=== PATIENT | male | born 1955 | race Caucasian/White ===

== ENCOUNTER 2016-10-23 13:24 | Observation (INO) | payer OTHER, BC, MEDICAID ==
[2016-10-23 14:02] LABS: ABSOLUTE EOSINOPHILS # (AUTO) 0.1 10^3/uL (0.0-0.6); ABSOLUTE LYMPHOCYTES (AUTO) 0.7 10^3/uL (0.5-4.7); ABSOLUTE MONOCYTES (AUTO) 0.6 10^3/uL (0.1-1.4); BASOPHILS % (AUTO) 0.7 % (0-2); EOSINOPHILS % (AUTO) 1.3 % (0-6); HEMATOCRIT 41.8 % (37.9-51.0); HEMOGLOBIN 14.5 g/dL (13.5-17.0); HGB HCT DIFFERENCE 1.7; LYMPHOCYTES % (AUTO) 10.6 % (13-45); MEAN CORPUSCULAR HEMOGLOBIN 32.3 pg (27.0-33.4); MEAN CORPUSCULAR HGB CONC 34.7 g/dL (32.0-36.0); MEAN CORPUSCULAR VOLUME 93 fl (80-97); MONOCYTES % (AUTO) 9.5 % (3-13); RED BLOOD COUNT 4.49 10^6/uL (4.35-5.55); RED CELL DISTRIBUTION WIDTH 13.7 % (11.5-14.0); SEGMENTED NEUTROPHILS % (AUTO) 77.9 % (42-78); WHITE BLOOD COUNT 6.5 10^3/uL (4.0-10.5)
[2016-10-23 14:13] LABS: ALANINE AMINOTRANSFERASE 23 U/L (21-72); ALBUMIN 4.2 g/dL (3.5-5.0); ALKALINE PHOSPHATASE 64 U/L (38-126); ANION GAP 11 (5-19); ASPARTATE AMINO TRANSFERASE 18 U/L (17-59); BILIRUBIN,TOTAL 0.8 mg/dL (0.2-1.3); BLOOD UREA NITROGEN 13 mg/dL (7-20); CARBON DIOXIDE 26 mmol/L (22-30); CHLORIDE 94 mmol/L (98-107); CREATININE RESULT 0.92 mg/dL (0.52-1.25); GLUCOSE 87 mg/dL (75-110); POTASSIUM 4.6 mmol/L (3.6-5.0); SODIUM 130.6 mmol/L (137-145); TOTAL PROTEIN 6.7 g/dL (6.3-8.2)
--- NOTE | 2016-10-23 15:13 | ER Document Report ---
ED General - General Chief Complaint: General Weakness Stated Complaint: WEAKNESS Mode of Arrival: Ambulatory Information source: Patient Notes: 61-year-old male history of 4 previous CVAs presents with complaints of left- sided weakness. Patient notes symptoms started around 3:00 this morning associated with chest pain. Patient notes chest pain has since resolved the numbness is still there. Patient denies any fevers or chills nausea vomiting or diarrhea TRAVEL OUTSIDE OF THE [place] IN LAST 30 DAYS: No - HPI Onset: This morning Onset/Duration: Sudden Quality of pain: No pain Severity: Mild Pain Level: Denies Associated symptoms: Chest pain, Other Exacerbated by: Denies Relieved by: Denies Similar symptoms previously: Yes Recently seen / treated by doctor: Yes - Related Data Allergies/Adverse Reactions: Beqomnk-Yay-Ugc Reductase Inhibitor Allergy (Severe, Verified 09/27/15 17:28) Muscle Aches Past Medical History - Social History Smoking Status: Never Smoker Cigarette use (# per day): No Chew tobacco use (# tins/day): No Smoking Education Provided: No Family History: CAD - Father age 56 [place], Other - Alcohol abuse - Past Medical History Cardiac Medical History: Reports: Hx Hypertension - hx of in past-no current meds Denies: Hx Coronary Artery Disease, Hx Heart Attack Pulmonary Medical History: Denies: Hx Asthma, Hx Bronchitis, Hx COPD, Hx Pneumonia Neurological Medical History: Reports: Hx Cerebrovascular Accident. 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 Denies recent illness. EENT: Denies eye, ear, throat, or mouth pain or symptoms. Denies nasal or sinus congestion or discharge. Denies throat, tongue, or mouth swelling or difficulty swallowing. CARDIOVASCULAR: Admits to chest pain RESPIRATORY: Denies cough, cold, or chest congestion. Denies shortness of breath, difficulty breathing, or wheezing. GASTROINTESTINAL: Denies abdominal pain or distention. Denies nausea, vomiting , or diarrhea. Denies blood in vomitus, stools, or per rectum. Denies black, tarry stools. Denies constipation. GENITOURINARY: Denies difficulty urinating, painful urination, burning, frequency, blood in urine, or discharge. MUSCULOSKELETAL: Denies back or neck pain or stiffness. Denies joint pain or swelling. SKIN: Denies rash, lesions or sores. HEMATOLOGIC : Denies easy bruising or bleeding. LYMPHATIC: Denies swollen, enlarged glands. NEUROLOGICAL: Admits to left-sided weakness PSYCHIATRIC: Denies anxiety or stress. Denies depression, suicidal ideation, or homicidal ideation. ALL OTHER SYSTEMS REVIEWED AND NEGATIVE. Dictation was performed using [employer] voice recognition software PHYSICAL EXAMINATION: GENERAL: Well-appearing, well-nourished and in no acute distress. HEAD: Atraumatic, normocephalic. EYES: Pupils equal round and reactive to light, extraocular movements intact, sclera anicteric, conjunctiva are normal. ENT: Nares patent, oropharynx clear without exudates. Moist mucous membranes. NECK: Normal range of motion, supple without lymphadenopathy LUNGS: Breath sounds clear to auscultation bilaterally and equal. No wheezes rales or rhonchi. HEART: Regular rate and rhythm without murmurs ABDOMEN: Soft, nontender, nondistended abdomen. No guarding, no rebound. No masses appreciated. Musculoskeletal: Normal range of motion, no pitting or edema. No cyanosis. NEUROLOGICAL: Mild weakness noted left upper and lower extremityor speech no other neurological deficits NIH score two PSYCH: Normal mood, normal affect. SKIN: Warm, Dry, normal turgor, no rashes or lesions noted. Physical Exam - Vital signs Vitals: Resp Pulse Ox 20 99 10/23/16 13:31 10/23/16 13:31 Course - Re-evaluation Re-evalutation: 10/23/16 15:13 left sided weakness noted since 3 am, pt is otherwise in no distress 10/23/16 15:15 Patient does not meet criteria for TIA CVA given that symptoms started around 3 AM 10/23/16 17:50 Patient will be admitted to hospital service for further evaluation patient is awake taken 1 baby aspirin prior to arrival and given 3 more in the emergency department - Vital Signs Vital signs: Temp Pulse Resp BP Pulse Ox 98.2 F 13 132/84 H 99 10/23/16 15:12 10/23/16 15:00 10/23/16 14:00 10/23/16 15:00 - Laboratory Result Diagrams: 10/23/16 13:40 10/23/16 13:40 Laboratory results interpreted by me: 10/23/16 10/23/16 13:40 13:40 Lymphocytes % 10.6 L Sodium 130.6 L Chloride 94 L - Diagnostic Test Radiology reviewed: Image reviewed, Reports reviewed - EKG Interpretation by Me EKG shows normal: Sinus rhythm, [place], Intervals, QRS Complexes Discharge - Discharge Clinical Impression: Left-sided weakness TIA (transient ischemic attack) Qualifiers: Transient cerebral ischemia type: unspecified Qualified Code(s): G45.9 - Transient cerebral ischemic attack, unspecified Condition: Stable Disposition: ADMITTED OBSERVATION Admitting Provider: Hospitalist Unit Admitted: Telemetry
[2016-10-23] MEDS ORDERED: ASPIRIN 81 MG TABLET, CHEWABLE PO ONE (15:14)
[2016-10-23 15:33] LABS: PROTHROMBIN TIME 13.5 SEC (11.4-15.4)
[2016-10-23 15:40] LABS: CREATINE KINASE MB 0.57 ng/mL (<4.55); TROPONIN I < 0.012 ng/mL
[2016-10-23] MEDS ORDERED: ACETAMINOPHEN 325 MG TABLET PO PRN (18:40)
[2016-10-23] MEDS ORDERED: ONDANSETRON HCL INJ/PF 4 MG/2 ML SDV IV PRN (18:40)
[2016-10-23] MEDS ORDERED: DOCUSATE SODIUM 100 MG CAPSULE PO PRN (18:40)
--- NOTE | 2016-10-23 18:56 | PDOC H&P ---
History of Present Illness Admission Date/PCP: 10/23/16 16:20 DENNYS CLARKE PA-C Patient complains of: Numbness on the left side of the body History of Present Illness: CHRISTEL VELAZCO is a 61 year old male, with prior history of stroke with minimal residual weakness on the left, ambulatory without the use of a walker, hypertension, hyperlipidemia, cervical spine fracture apparently developed numbness on the left side of the face upper extremity and lower extremity. Symptoms persisted until noontime from upon waking up. Patient had multiple TIAs in the past therefore he called the ambulance where he was able to walk towards it. He he was brought to the emergency room for evaluation and initial CT scan was negative for any acute abnormality. Associated symptoms include initial choking sensation did eventually resolve. There is some mild weakness associated on the left as well. However duration no slurring of speech. Patient reports that he doesn't feel well. Yesterday he was doing fine in history as well state about. The patient was referred for admission. Past Medical History Cardiac Medical History: Reports: Hypertension - hx of in past-no current meds Denies: Coronary Artery Disease, Myocardial Infarction Pulmonary Medical History: Denies: Asthma, Bronchitis, Chronic Obstructive Pulmonary Disease (COPD), Pneumonia Neurological Medical History: Denies: Seizures GI Medical History: Reports: Gastroesophageal Reflux Disease Musculoskeltal Medical History: Reports: Arthritis - neck Psychiatric Medical History: Reports: Depression, Substance Abuse - Cocaine and alcohol Traumatic Medical History: Reports: Other - Fracture of the neck Hematology: Denies: Anemia Past Surgical History Past Surgical History: Reports: Tonsillectomy, Other - Vasectomy Social History Information Source: Patient Smoking Status: Never Smoker Frequency of Alcohol Use: None Hx Recreational Drug Use: Yes Drugs: Cocaine Hx Prescription Drug Abuse: No Family History Family History: CAD - Father age 56 [place], Other - Alcohol abuse Parental Family History Reviewed: Yes Children Family History Reviewed: Yes Sibling(s) Family History Reviewed.: Yes Medication/Allergy Home Medications: Aspirin [Ecotrin 325 mg EC Tablet] 325 mg PO DAILY 10/23/16 Clopidogrel Bisulfate [Plavix 75 mg Tablet] 75 mg PO DAILY 10/23/16 [place]-3/Dha/Epa/Fish Oil [Fish Oil 1,000 mg Softgel] 2,000 mg PO DAILY 10/23/16 Allergies/Adverse Reactions: Gdrkvgs-Tsq-Zmj Reductase Inhibitor Allergy (Severe, Verified 09/27/15 17:28) Muscle Aches Review of Systems Constitutional: ABSENT: chills, fever(s), headache(s), weight gain, weight loss Eyes: ABSENT: visual disturbances Ears: ABSENT: hearing changes Nose, Mouth, and Throat: ABSENT: mouth pain, sore throat Cardiovascular: ABSENT: chest pain, dyspnea on exertion, edema, orthropnea, palpitations Respiratory: ABSENT: cough, hemoptysis Gastrointestinal: ABSENT: abdominal pain, constipation, diarrhea, hematemesis, hematochezia, nausea, vomiting Genitourinary: ABSENT: dysuria, hematuria Musculoskeletal: ABSENT: joint swelling Integumentary: ABSENT: pruritus, rash, wounds Neurological: PRESENT: abnormal gait - Slight chronic weakness on the left but ambulatory without a walker., focal weakness - Mild weakness on the left, numbness - Left side of the body. ABSENT: abnormal speech, confusion, dizziness , syncope Psychiatric: ABSENT: anxiety, depression, homidical ideation, suicidal ideation Endocrine: ABSENT: cold intolerance, heat intolerance, polydipsia, polyuria Hematologic/Lymphatic: ABSENT: easy bleeding, easy bruising Physical Exam Vital Signs: Temp Pulse Resp BP Pulse Ox 98.2 F 13 132/84 H 99 10/23/16 15:12 10/23/16 15:00 10/23/16 14:00 10/23/16 15:00 General appearance: PRESENT: no acute distress, cooperative, well-developed, well-nourished Head exam: PRESENT: atraumatic, normocephalic Eye exam: PRESENT: conjunctiva pink, EOMI, PERRLA. ABSENT: scleral icterus Ear exam: PRESENT: normal external ear exam. ABSENT: drainage Mouth exam: PRESENT: moist, neck supple, tongue midline Throat exam: ABSENT: post pharyngeal erythema, tonsillar erythema Neck exam: ABSENT: carotid bruit, JVD, lymphadenopathy, thyromegaly Respiratory exam: PRESENT: clear to auscultation felicia. ABSENT: rales, rhonchi, wheezes Cardiovascular exam: PRESENT: RRR. ABSENT: diastolic murmur, rubs, systolic murmur Pulses: PRESENT: normal dorsalis pedis pul Vascular exam: PRESENT: normal capillary refill GI/Abdominal exam: PRESENT: normal bowel sounds, soft. ABSENT: distended, guarding, mass, organolmegaly, rebound, tenderness Rectal exam: PRESENT: deferred Extremities exam: PRESENT: full ROM. ABSENT: calf tenderness, clubbing, pedal edema Neurological exam: PRESENT: alert, awake, oriented to person, oriented to place , oriented to time, oriented to situation, motor sensory deficit - Subtle weakness on the left compared to the right, other - Mild shallowness of the left nasolabial fold. Speech is fluent. Plantars withdraws bilateral Psychiatric exam: PRESENT: appropriate affect, normal mood. ABSENT: homicidal ideation, suicidal ideation Skin exam: PRESENT: dry, intact, warm. ABSENT: cyanosis, rash Results Impressions: Head CT 10/23/16 13:33 IMPRESSION: CHRONIC CHANGES OF ATROPHY AND MICROVASCULAR ISCHEMIA. NO ACUTE PROCESS. Assessment & Plan - Diagnosis (1) Left-sided weakness Is this a current diagnosis for this admission?: Yes (2) TIA (transient ischemic attack) Qualifiers: Transient cerebral ischemia type: unspecified Qualified Code(s): G45.9 - Transient cerebral ischemic attack, unspecified Is this a current diagnosis for this admission?: Yes (3) Hyperlipidemia Qualifiers: Hyperlipidemia type: other hyperlipidemia Qualified Code(s): E78.4 - Other hyperlipidemia Is this a current diagnosis for this admission?: Yes (4) Hypertension Qualifiers: Hypertension type: essential hypertension Qualified Code(s): I10 - Essential (primary) hypertension Is this a current diagnosis for this admission?: Yes (5) GERD (gastroesophageal reflux disease) Qualifiers: Esophagitis presence: without esophagitis Qualified Code(s): K21.9 - Gastro-esophageal reflux disease without esophagitis Is this a current diagnosis for this admission?: Yes (6) History of cocaine abuse Is this a current diagnosis for this admission?: Yes (7) History of alcohol abuse Is this a current diagnosis for this admission?: Yes (8) History of cervical fracture Is this a current diagnosis for this admission?: Yes (9) History of stroke Is this a current diagnosis for this admission?: Yes - Time Time Spent: 30 to 50 Minutes - Plan Summary Plan Summary: The patient will be placed on observation. Patient had a recent carotid Doppler performed in May 2016 showing no hemodynamically significant stenosis. I will continue the patient's antiplatelet therapy we will have physical therapy get involved. We will obtain MRI of the brain and a 2-D echocardiogram. If patient's MRI is negative likely the patient can be discharged home. We will check fasting lipid panel in the morning. I will hold any antihypertensive medication at this time. DVT prophylaxis with Lovenox will be placed. Supplemental oxygen will be given. Further testing depends on the initial evaluation as outlined above.
[2016-10-23] MEDS ORDERED: ENOXAPARIN SODIUM INJ 40 MG/0.4 ML DISP.SYRIN SUBCUT ONE (19:30)
[2016-10-24] MEDS ORDERED: LANSOPRAZOLE 30 MG TAB.RAP.DR PO SCH (06:00)
[2016-10-24 06:59] LABS: CHOLESTEROL 259.82 mg/dL (0-200); Direct HDL 64 mg/dL (>40); TRIGLYCERIDES 70 mg/dL (<150)
[2016-10-24 07:10] LABS: DIRECT LDL 187 mg/dL (<100)
[2016-10-24] MEDS ORDERED: ENOXAPARIN SODIUM INJ 40 MG/0.4 ML DISP.SYRIN SUBCUT SCH (08:00)
[2016-10-24] MEDS ORDERED: OMEGA-3 ACID ETHYL ESTERS 1 GM CAPSULE PO SCH (10:00)
[2016-10-24] MEDS ORDERED: (PENDING PHARMACY ID) (Omega-3/Dha/Epa/Fish Oil [Fish Oil 1,000 Mg Softgel] 2,000 MG) PO SCH (10:00)
[2016-10-24] MEDS ORDERED: ASPIRIN 325 MG TABLET, ENT COATED PO SCH (10:00)
[2016-10-24] MEDS ORDERED: CLOPIDOGREL BISULFATE 75 MG TABLET PO SCH (10:00)
[2016-10-24] MEDS ORDERED: INFLUENZA ADLT QUAD (36MOS+) 2016-17 VAC 0.5 ML SYR IM PRN (14:34)
--- NOTE | 2016-10-24 17:48 | XCELERA REPORT ---
[address] [address] Transthoracic Echocardiogram Report Name: CHRISTEL VELAZCO Age: 61 yrs Gender: Male : 1955 Patient Status: Inpatient Patient Location: [id number]\A Study Date: 10/24/2016 03:53 PM Height: 65 in Weight: 152 lb BSA: 1.8 m2 Procedure: A complete two-dimensional transthoracic echocardiogram was performed (2D, M-mode, spectral and color flow Doppler). The study was technically adequate with some images being suboptimal in quality. Reason For Study: hypertensive heart disease, stroke Ordering Physician: JOSE KAT Performed By: Yeni Miller Interpretation Summary The left ventricular ejection fraction is normal. There is borderline concentric left ventricular hypertrophy. Doppler measurements suggest impaired left ventricular relaxation, which is associated with grade I/IV or mild diastolic dysfunction The left ventricle is grossly normal size. Wall motion cannot be accurately commented on, but no definite regional wall motion abnormalities noted. The right ventricular systolic function is normal. The left atrial size is normal. The right atrium is normal in size There is a trace amount of mitral regurgitation There is no mitral valve stenosis. There is no aortic valve stenosis No aortic regurgitation is present. There is a trace or physiologic amount of tricuspid regurgitation Tricuspid regurgitation jet envelope not well defined to measure RV systolic pressure accurately. The aortic root is not well visualized. The inferior vena cava appeared normal and decreased < 50% with respiration (RAP 10-15 mmHg) There is no pericardial effusion. Consider IVETTE if clinically indicated. May consider mobile cardiac telemetry monitoring (MCT) for ruling out transient AFIB. MMode/2D Measurements \T\ Calculations RVDd: 2.9 cm LVIDd: 4.7 cm FS: 33.0 % Ao root diam: 3.5 cm IVSd: 0.96 cm LVIDs: 3.1 cm EDV(Teich): 101.4 ml LVPWd: 0.99 cmESV(Teich): 39.0 ml Ao root area: 9.7 cm2 EF(Teich): 61.6 % LA dimension: 2.3 cm LVOT diam: 2.2 cm LVOT area: 3.7 cm2 Doppler Measurements \T\ Calculations MV E max flaca: MV P1/2t max flaca: Ao V2 max: LV V1 max P.3 cm/sec 71.3 cm/sec 123.8 cm/sec 3.6 mmHg MV A max flaca: MV P1/2t: 53.3 msec Ao max PG: LV V1 max: 82.1 cm/sec MVA(P1/2t): 4.1 cm2 6.1 mmHg 95.2 cm/sec MV E/A: 0.87 MV dec slope: NIELS(V,D): 2.9 cm2 392.1 cm/sec2 PA V2 max: PI end-d flaca: TR max flaca: 52.8 cm/sec 71.8 cm/sec 189.1 cm/sec PA max PG: TR max P.1 mmHg 14.3 mmHg Left Ventricle The left ventricle is grossly normal size. There is borderline concentric left ventricular hypertrophy. The left ventricular ejection fraction is normal. Doppler measurements suggest impaired left ventricular relaxation, which is associated with grade I/IV or mild diastolic dysfunction. Wall motion cannot be accurately commented on, but no definite regional wall motion abnormalities noted. Right Ventricle The right ventricle is grossly normal size. There is normal right ventricular wall thickness. The right ventricular systolic function is normal. Atria The right atrium is normal in size. The left atrial size is normal. Interarterial septum not well visualized and not well dopplered. Cannot comment on ASD/PFO presence. Mitral Valve The mitral valve leaflets are sclerotic, but show no functional abnormalities. There is no mitral valve stenosis. There is a trace amount of mitral regurgitation. Aortic Valve The aortic valve is grossly normal. There is no aortic valve stenosis. No aortic regurgitation is present. Tricuspid Valve The tricuspid valve is not well visualized, but is grossly normal. There is no tricuspid stenosis. There is a trace or physiologic amount of tricuspid regurgitation. Tricuspid regurgitation jet envelope not well defined to measure RV systolic pressure accurately. Pulmonic Valve The pulmonic valve is not well visualized. Great Vessels The aortic root is not well visualized. The inferior vena cava appeared normal and decreased < 50% with respiration (RAP 10-15 mmHg). Effusions There is no pericardial effusion. Incidental Findings No definite cardiac source of CVA/TIA noted on this particular trans- thoracic study. Consider IVETTE if clinically indicated. May consider mobile cardiac telemetry monitoring (MCT) for ruling out transient AFIB. : JOSE KAT > Bala Hudson
--- NOTE | 2016-10-24 18:17 | PDOC DISCHARGE SUMMARY ---
General - Admit/Disc Date/PCP Admission Date/Primary Care Provider: 10/23/16 18:40 DENNYS CLARKE PA-C Discharge Date: 10/24/16 - Discharge Diagnosis (1) TIA (transient ischemic attack) Is this a current diagnosis for this admission?: YesSummary: Patient presented with numbness in the left face and left arm and leg. It's not clear whether this was truly a TIA or possibly be cervical spine disease as the cause. MRI showed no acute event. (2) Hyperlipidemia Is this a current diagnosis for this admission?: Yes (3) Hypertension Is this a current diagnosis for this admission?: Yes (4) GERD (gastroesophageal reflux disease) Is this a current diagnosis for this admission?: Yes - Additional Information Resuscitation Status: Full Code Discharge Diet: Cardiac Discharge Activity: Activity As Tolerated Home Medications: Aspirin [Ecotrin 325 mg EC Tablet] 325 mg PO DAILY 10/23/16 Clopidogrel Bisulfate [Plavix 75 mg Tablet] 75 mg PO DAILY 10/23/16 [place]-3/Dha/Epa/Fish Oil [Fish Oil 1,000 mg Softgel] 2,000 mg PO DAILY 10/23/16 History of Present Illness History of Present Illness: CHRISTEL VELAZCO is a 61 year old male with a revisit history TIA who presented with numbness in the left arm, left leg and left face. The patient presented to the emergency room and head CT was negative. Patient was admitted because of presumed TIA. The patient was hospitalized in May for similar symptoms and had carotid Dopplers that showed no evidence for significant stenosis. Hospital Course Hospital Course: 61-year-old gentleman who presented with left face and left arm and leg numbness. The patient had a head CT that was unremarkable and was admitted for workup of TIA. The patient's brain MRI showed no evidence for an acute or subacute event. The patient had a carotid Dopplers done in May and they were not repeated. Patient did have an echocardiogram done the results of which are pending at this time but he's not had any cardiac arrhythmias which makes the possibility of mural thrombus less likely. Patient presented already on aspirin and Plavix have instructed the patient that this is maximal treatment for TIAs. The possibility this represents cervical spine disease as the cause is considered and I discussed this with the patient that he might consider discussing going to see a neurologist see if that may be the cause of these intermittent episodes of left face and arm numbness. Physical Exam Vital Signs: Temp Pulse Resp BP Pulse Ox 98.4 F 88 16 130/65 H 97 10/24/16 14:04 10/24/16 16:00 10/24/16 16:00 10/24/16 16:00 10/24/16 16:00 Intake & Output 10/23/16 10/24/16 10/25/16 06:59 06:59 06:59 Intake Total 3 Output Total 1000 Balance -997 Weight 64.1 kg General appearance: PRESENT: no acute distress Eye exam: PRESENT: conjunctiva pink, scleral icterus Mouth exam: PRESENT: moist, tongue midline Neck exam: ABSENT: JVD Respiratory exam: PRESENT: clear to auscultation felicia. ABSENT: rales, rhonchi, wheezes Cardiovascular exam: PRESENT: RRR. ABSENT: diastolic murmur, rubs, systolic murmur GI/Abdominal exam: PRESENT: normal bowel sounds, soft. ABSENT: distended, guarding, mass, organolmegaly, rebound, tenderness Extremities exam: PRESENT: full ROM. ABSENT: calf tenderness, clubbing, pedal edema Neurological exam: PRESENT: alert, awake, oriented to person, oriented to place , oriented to time, oriented to situation, CN II-XII grossly intact. ABSENT: motor sensory deficit Psychiatric exam: PRESENT: appropriate affect Results Laboratory Results: 10/24/16 06:36 Triglycerides 70 Cholesterol 259.82 H LDL Cholesterol Direct 187 H VLDL Cholesterol 14.0 HDL Cholesterol 64 Impressions: Head MRI 10/23/16 00:00 IMPRESSION: Negative for acute or sub-acute infarction. Head CT 10/23/16 13:33 IMPRESSION: CHRONIC CHANGES OF ATROPHY AND MICROVASCULAR ISCHEMIA. NO ACUTE PROCESS. Qualifiers PATEINT BEING DISCHARGED WITH ANY OF THE FOLLOWING DIAGNOSIS?: Stroke Stroke Pt being discharged on Anti-thrombolytic therapy?: Yes Stroke Pt being discharged on Anti-coagulation therapy?: No Reason(s) for not prescribing Anti-coagulation therapy:: Contraindicated Stroke Pt being discharged on Statins?: Yes Plan Discharge Plan: Patient is discharged home in stable condition. Will follow primary care in 1 week Time Spent: Less than 30 Minutes
[2016-10-24 18:37] VITALS: BP 153/85
== END 2016-10-24 19:00 | disposition home or self-care (01) ==
LOC: ER 13:24 → UNDOADMIN 16:20 → EH 16:20 → INTOOBSV 18:40 → 3N 10-24 13:50
DX: G45.9 Transient cerebral ischemic attack, unspecified (principal); E78.5 Hyperlipidemia, unspecified; I10 Essential (primary) hypertension; K21.9 Gastro-esophageal reflux disease without esophagitis; Z87.898 Personal history of other specified conditions; Z86.73 Personal history of transient ischemic attack (TIA), and cerebral infarction without residual deficits
CPT/HCPCS: 99285; 36415 ×2; 82553; 82550; 85025; 85610; 80053; 84484; 80061; 93306; 70551; 70450; 97162; 92610; J1650 ×2; J3490 ×2

== ENCOUNTER 2016-12-18 09:33 | Emergency (ER) | payer BC, MEDICAID, OTHER ==
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
[2016-12-18 12:24] VITALS: BP 133/83
== END 2016-12-18 12:26 | disposition home or self-care (01) ==
LOC: ER 09:33
PROC: 2W3DX1Z Immobilization of Left Lower Arm using Splint (ICD-10-PCS; principal; 2016-12-18)
DX: S52.602A Unspecified fracture of lower end of left ulna, initial encounter for closed fracture (principal); V03.10XA Pedestrian on foot injured in collision with car, pick-up truck or van in traffic accident, initial encounter; Y92.410 Unspecified street and highway as the place of occurrence of the external cause; Z86.73 Personal history of transient ischemic attack (TIA), and cerebral infarction without residual deficits; K21.9 Gastro-esophageal reflux disease without esophagitis
CPT/HCPCS: 99283

== ENCOUNTER 2017-01-19 12:01 | Observation (INO) | payer BC, MEDICAID ==
--- NOTE | 2017-01-19 13:10 | RADIOLOGY REPORT (SQ) ---
EXAM DESCRIPTION: CT HEAD WITHOUT COMPLETED DATE/TIME: 01/19/2017 12:53 pm REASON FOR STUDY: STROKE PROTOCOL COMPARISON: None. TECHNIQUE: Axial images acquired through the brain without intravenous contrast. Images reviewed wi th bone, brain and subdural windows. Images stored on PACS. All CT scanners at this facility use dose modulation, iterative reconstruction, and/or weight based d osing when appropriate to reduce radiation dose to as low as reasonably achievable (ALARA). [facility]: Dose Right [facility]: CareDose [facility]: Dose Right [facility]: Teradose 4D [facility]: [employer] RADIATION DOSE: 64.61 mGy. LIMITATIONS: None. FINDINGS: VENTRICLES: Normal size and contour. CEREBRUM: No CT evidence of acute large territory ischemic change, acute intracranial hemorrhage, mas s effect, or midline shift. There are old infarcts in the left frontal deep periventricular white matter along the corpus callosu m axial image 22 and 23, and along the right frontal deep periventricular white matter/caudate lobe a xial image 20. These are unchanged from prior studies. Minimal chronic small vessel ischemic change in the bifrontal and biparietal regions, stable. CEREBELLUM: No masses. No hemorrhage. No alteration of density. No evidence for acute infarction. EXTRAAXIAL SPACES: No fluid collections. No masses. ORBITS AND GLOBE: No intra- or extraconal masses. Normal contour of globe without masses. CALVARIUM: No fracture. PARANASAL SINUSES: No fluid or mucosal thickening. SOFT TISSUES: No mass or hematoma. OTHER: No other significant finding. IMPRESSION: No acute findings COMMENT: Pertinent findings on the imaging study reported as a CRITICAL RESULT to MERT DOBBINS DO at12:50 on 01/19/2017. Category of Critical Result: CT stroke alert TECHNICAL DOCUMENTATION: JOB ID: [id number] Quality ID # [id number]: Final reports with documentation of one or more dose reduction techniques (e.g., Au tomated exposure control, adjustment of the mA and/or kV according to patient size, use of iterative reconstruction technique) 2010 [employer]- All Rights Reserved
--- NOTE | 2017-01-19 13:17 | RADIOLOGY REPORT (SQ) ---
EXAM DESCRIPTION: CHEST SINGLE VIEW COMPLETED DATE/TIME: 01/19/2017 12:56 pm REASON FOR STUDY: STROKE PROTOCOL COMPARISON: May 2016 EXAM PARAMETERS: NUMBER OF VIEWS: One view. TECHNIQUE: Single frontal radiographic view of the chest acquired. RADIATION DOSE: NA LIMITATIONS: None. FINDINGS: LUNGS AND PLEURA: No opacities, masses or pneumothorax. No pleural effusion. MEDIASTINUM AND HILAR STRUCTURES: No masses. Contour normal. HEART AND VASCULAR STRUCTURES: Heart normal in size. Normal vasculature. BONES: No acute findings. HARDWARE: None in the chest. OTHER: No other significant finding. IMPRESSION: NO ACUTE RADIOGRAPHIC FINDING IN THE CHEST. TECHNICAL DOCUMENTATION: JOB ID: [id number]
[2017-01-19 13:38] LABS: ABSOLUTE EOSINOPHILS # (AUTO) 0.1 10^3/uL (0.0-0.6); ABSOLUTE LYMPHOCYTES (AUTO) 0.9 10^3/uL (0.5-4.7); ABSOLUTE MONOCYTES (AUTO) 0.7 10^3/uL (0.1-1.4); ABSOLUTE NEUT (AUTO) 5.2 10^3/uL (1.7-8.2); BASOPHILS % (AUTO) 0.6 % (0-2); EOSINOPHILS % (AUTO) 1.4 % (0-6); HEMATOCRIT 46.8 % (37.9-51.0); HEMOGLOBIN 15.9 g/dL (13.5-17.0); HGB HCT DIFFERENCE 0.9; LYMPHOCYTES % (AUTO) 13.2 % (13-45); MEAN CORPUSCULAR HEMOGLOBIN 31.8 pg (27.0-33.4); MEAN CORPUSCULAR HGB CONC 33.9 g/dL (32.0-36.0); MEAN CORPUSCULAR VOLUME 94 fl (80-97); MONOCYTES % (AUTO) 9.6 % (3-13); PROTHROMBIN TIME 13.4 SEC (11.4-15.4); RED BLOOD COUNT 4.99 10^6/uL (4.35-5.55); RED CELL DISTRIBUTION WIDTH 13.6 % (11.5-14.0); SEGMENTED NEUTROPHILS % (AUTO) 75.2 % (42-78); WHITE BLOOD COUNT 6.9 10^3/uL (4.0-10.5)
[2017-01-19 13:56] LABS: ALANINE AMINOTRANSFERASE 30 U/L (21-72); ALBUMIN 4.7 g/dL (3.5-5.0); ALKALINE PHOSPHATASE 76 U/L (38-126); ANION GAP 14 (5-19); ASPARTATE AMINO TRANSFERASE 21 U/L (17-59); BILIRUBIN,DIRECT 0.3 mg/dL (0.0-0.4); BILIRUBIN,TOTAL 0.8 mg/dL (0.2-1.3); BLOOD UREA NITROGEN 13 mg/dL (7-20); CALCIUM 9.7 mg/dL (8.4-10.2); CARBON DIOXIDE 26 mmol/L (22-30); CHLORIDE 93 mmol/L (98-107); CREATINE KINASE 80 U/L (55-170); CREATININE RESULT 0.94 mg/dL (0.52-1.25); GLUCOSE 99 mg/dL (75-110); POTASSIUM 4.9 mmol/L (3.6-5.0); SODIUM 132.5 mmol/L (137-145); TOTAL PROTEIN 7.9 g/dL (6.3-8.2)
[2017-01-19 14:06] LABS: CREATINE KINASE MB 2.16 ng/mL (<4.55)
[2017-01-19 14:08] LABS: TROPONIN I < 0.012 ng/mL
--- NOTE | 2017-01-19 15:13 | ER Document Report ---
ED General - General Chief Complaint: Blurred Vision Stated Complaint: DIZZINESS Time Seen by Provider: 01/19/17 12:45 Mode of Arrival: Ambulatory Information source: Patient Notes: 61-year-old male history of TIAs CVAs who was recently admitted for a TIA presents with complaints of sudden visual disturbance. Patient notes he is having difficulty breathing feels his vision is quite blurry bilateral. Patient denies any leg numbness weakness TRAVEL OUTSIDE OF THE [place] IN LAST 30 DAYS: No - HPI Onset: Just prior to arrival Onset/Duration: Sudden Quality of pain: No pain Severity: Mild Pain Level: Denies Associated symptoms: Other Exacerbated by: Denies Relieved by: Denies Similar symptoms previously: No Recently seen / treated by doctor: No - Related Data Allergies/Adverse Reactions: Zgsvjvy-Cyp-Nvv Reductase Inhibitor Allergy (Severe, Verified 01/19/17 12:32) Muscle Aches Home Medications: Current Home Medications Amitriptyline HCl [Amitriptyline HCl] 1 tab PO DAILY 01/19/17 [History] Past Medical History - Social History Smoking Status: Former Smoker Cigarette use (# per day): No Chew tobacco use (# tins/day): No Smoking Education Provided: No Frequency of alcohol use: Heavy Drug Abuse: None Family History: CAD, Other Patient has suicidal ideation: No Patient has homicidal ideation: No - Past Medical History Cardiac Medical History: Reports: Hx Hypertension - hx of in past-no current meds Denies: Hx Heart Attack Pulmonary Medical History: Denies: Hx Asthma, Hx Bronchitis, Hx COPD, Hx Pneumonia Neurological Medical History: Reports: Hx Cerebrovascular Accident. Denies: Hx Seizures Renal/ Medical History: Denies: Hx Peritoneal Dialysis GI Medical History: Reports: Hx Gastroesophageal Reflux Disease Musculoskeltal Medical History: Reports Hx Arthritis - neck Psychiatric Medical History: Reports: Hx Depression Past Surgical History: Reports: Hx Tonsillectomy, Other - Vasectomy - Immunizations Hx Diphtheria, Pertussis, Tetanus Vaccination: Yes Review of Systems - Review of Systems Notes: PHYSICAL EXAMINATION: GENERAL: Well-appearing, well-nourished and in no acute distress. HEAD: Atraumatic, normocephalic. EYES: Pupils equal round and reactive to light, extraocular movements intact, sclera anicteric, conjunctiva are normal. ENT: Nares patent, oropharynx clear without exudates. Moist mucous membranes. NECK: Normal range of motion, supple without lymphadenopathy LUNGS: Breath sounds clear to auscultation bilaterally and equal. No wheezes rales or rhonchi. HEART: Regular rate and rhythm without murmurs ABDOMEN: Soft, nontender, nondistended abdomen. No guarding, no rebound. No masses appreciated. Musculoskeletal: Normal range of motion, no pitting or edema. No cyanosis. NEUROLOGICAL: Please see NIH scale PSYCH: Normal mood, normal affect. SKIN: Warm, Dry, normal turgor, no rashes or lesions noted. Physical Exam - Vital signs Vitals: Temp Pulse Resp BP Pulse Ox 98 F 67 18 140/78 H 100 01/19/17 12:32 01/19/17 12:32 01/19/17 12:32 01/19/17 12:32 01/19/17 12:32 - HEENT Visual acuity- Right eye: 20/30 Visual acuity- Left eye: 20/25 Visual acuity- Both eyes: 20/25 Corrective lenses worn: No Course - Re-evaluation Re-evalutation: 01/19/17 17:[address] Noe regarding emergent CT of the head for this patient's symptoms. No new cv noted. Patient otherwise looks well is in no distress I will admit for observation pt to be admitted for observation - Vital Signs Vital signs: Temp Pulse Resp BP Pulse Ox 98 F 68 19 143/78 H 100 01/19/17 12:32 01/19/17 12:55 01/19/17 16:01 01/19/17 16:01 01/19/17 16:01 - Laboratory Result Diagrams: 01/19/17 13:15 01/19/17 13:15 Laboratory results interpreted by me: 01/19/17 01/19/17 13:15 13:15 Sodium 132.5 L Chloride 93 L Cholesterol 307.47 H LDL Cholesterol Direct 208 H - Diagnostic Test Radiology reviewed: Image reviewed, Reports reviewed - no acute abnormaloity Discharge - Discharge Clinical Impression: Visual disturbance TIA (transient ischemic attack) Qualifiers: Transient cerebral ischemia type: unspecified Qualified Code(s): G45.9 - Transient cerebral ischemic attack, unspecified Admitting Provider: Hospitalist Unit Admitted: [facility]
[2017-01-19 15:35] LABS: APPEARANCE,URINE CLEAR; BILIRUBIN,URINE NEGATIVE (NEGATIVE); GLUCOSE, URINE NEGATIVE (NEGATIVE); KETONES,URINE NEGATIVE (NEGATIVE); LEUKOCYTE ESTERASE,URINE NEGATIVE (NEGATIVE); NITRITE,URINE NEGATIVE (NEGATIVE); PROTEIN,URINE NEGATIVE (NEGATIVE); URINE SPECIFIC GRAVITY 1.003; UROBILINOGEN,URINE NEGATIVE mg/dL (<2.0)
--- NOTE | 2017-01-19 16:26 | PDOC H&P ---
History of Present Illness Admission Date/PCP: LONNIE CLARKE MD Patient complains of: blurred vision History of Present Illness: CHRISTEL VELAZCO is a 61 year old male with a past history of hypertension, previous TIA, and previous strokes. He also has h/o alcohol abuse and cocaine abuse. He now complains of sudden blurred vision she experienced earlier today at his doctor's office. He tells me he cannot read his cell phone. In the past, his TIAs have been mainly hemiparetic on the left. These have recovered without residual. He states that he might have some residual numbness on the left side of his face. By way of risk factors, he had hypertension but this resolved after significant weight loss several years ago. He has dyslipidemia but is intolerant of statins. He is not diabetic. He was never a smoker. He takes aspirin daily. He would be admitted to observation. Carotid studies and echocardiogram have apparently been done within the past year, so these will not be immediately repeated. Past Medical History Cardiac Medical History: Reports: Hypertension - hx of in past-no current meds Denies: Myocardial Infarction Pulmonary Medical History: Denies: Asthma, Bronchitis, Chronic Obstructive Pulmonary Disease (COPD), Pneumonia Neurological Medical History: Denies: Seizures Endocrine Medical History: Reports: Other - Dyslipidemia GI Medical History: Reports: Gastroesophageal Reflux Disease Musculoskeltal Medical History: Reports: Arthritis - neck Psychiatric Medical History: Reports: Depression Hematology: Denies: Anemia Past Surgical History Past Surgical History: Reports: Tonsillectomy, Other - Vasectomy Social History Smoking Status: Never Smoker Frequency of Alcohol Use: None Hx Recreational Drug Use: No Drugs: None Hx Prescription Drug Abuse: No Family History Family History: CAD, Other Parental Family History Reviewed: No Children Family History Reviewed: No Sibling(s) Family History Reviewed.: No Medication/Allergy Home Medications: Aspirin [Ecotrin 325 mg EC Tablet] 325 mg PO DAILY 10/23/16 Amitriptyline HCl [Amitriptyline HCl] 1 tab PO DAILY 01/19/17 Allergies/Adverse Reactions: Mshlydy-Xfs-Svm Reductase Inhibitor Allergy (Severe, Verified 01/19/17 12:32) Muscle Aches Review of Systems Constitutional: ABSENT: chills, fever(s), headache(s), weight gain, weight loss Eyes: PRESENT: as per HPI, visual disturbances Ears: ABSENT: hearing changes Cardiovascular: ABSENT: chest pain, dyspnea on exertion, edema, orthropnea, palpitations Respiratory: ABSENT: cough, hemoptysis Gastrointestinal: ABSENT: abdominal pain, constipation, diarrhea, hematemesis, hematochezia, nausea, vomiting Genitourinary: ABSENT: dysuria, hematuria Musculoskeletal: PRESENT: back pain. ABSENT: joint swelling Integumentary: ABSENT: rash, wounds Neurological: PRESENT: as per HPI. ABSENT: abnormal gait, abnormal speech, confusion, dizziness, focal weakness, syncope Psychiatric: PRESENT: depression. ABSENT: homidical ideation, suicidal ideation Endocrine: ABSENT: cold intolerance, heat intolerance, polydipsia, polyuria Hematologic/Lymphatic: ABSENT: easy bleeding, easy bruising Physical Exam Vital Signs: Temp Pulse Resp BP Pulse Ox 98 F 68 18 122/69 100 01/19/17 12:32 01/19/17 12:55 01/19/17 15:11 01/19/17 15:11 01/19/17 15:11 Intake & Output 01/18/17 01/19/17 01/20/17 06:59 06:59 06:59 Weight 66.9 kg General appearance: PRESENT: no acute distress, cooperative, well-developed, well-nourished Head exam: PRESENT: atraumatic, normocephalic Eye exam: PRESENT: conjunctiva pink, EOMI, PERRLA. ABSENT: nystagmus, scleral icterus Ear exam: PRESENT: normal external ear exam Mouth exam: PRESENT: moist, tongue midline Neck exam: ABSENT: carotid bruit, JVD, lymphadenopathy, thyromegaly Respiratory exam: PRESENT: clear to auscultation felicia. ABSENT: rales, rhonchi, wheezes Cardiovascular exam: PRESENT: RRR. ABSENT: diastolic murmur, rubs, systolic murmur Pulses: PRESENT: normal dorsalis pedis pul Vascular exam: PRESENT: normal capillary refill GI/Abdominal exam: PRESENT: normal bowel sounds, soft. ABSENT: distended, guarding, mass, organolmegaly, rebound, tenderness Rectal exam: PRESENT: deferred Extremities exam: PRESENT: full ROM. ABSENT: calf tenderness, clubbing, pedal edema Neurological exam: PRESENT: alert, awake, oriented to person, oriented to place , oriented to time, oriented to situation, CN II-XII grossly intact, other - speech is fluent. ABSENT: motor sensory deficit Psychiatric exam: PRESENT: appropriate affect, normal mood. ABSENT: homicidal ideation, suicidal ideation Skin exam: PRESENT: dry, intact, warm. ABSENT: cyanosis, rash Results Laboratory Results: 01/19/17 13:15 01/19/17 13:15 01/19/17 01/19/17 01/19/17 13:15 13:15 15:08 WBC 6.9 RBC 4.99 Hgb 15.9 Hct 46.8 MCV 94 MCH 31.8 MCHC 33.9 RDW 13.6 Plt Count 275 Seg Neutrophils % 75.2 Lymphocytes % 13.2 Monocytes % 9.6 Eosinophils % 1.4 Basophils % 0.6 Absolute Neutrophils 5.2 Absolute Lymphocytes 0.9 Absolute Monocytes 0.7 Absolute Eosinophils 0.1 Absolute Basophils 0.0 Sodium 132.5 L Potassium 4.9 Chloride 93 L Carbon Dioxide 26 Anion Gap 14 BUN 13 Creatinine 0.94 Est GFR ( Amer) > 60 Est GFR (Non-Af Amer) > 60 Glucose 99 Calcium 9.7 Total Bilirubin 0.8 AST 21 ALT 30 Alkaline Phosphatase 76 Total Protein 7.9 Albumin 4.7 Urine Color STRAW Urine Appearance CLEAR Urine pH 7.0 Ur Specific Irving 1.003 Urine Protein NEGATIVE Urine Glucose (UA) NEGATIVE Urine Ketones NEGATIVE Urine Blood NEGATIVE Urine Nitrite NEGATIVE Ur Leukocyte Esterase NEGATIVE Urine WBC (Auto) 2 Urine RBC (Auto) 1 01/19/17 01/19/17 13:15 13:15 Creatine Kinase 80 CK-MB (CK-2) 2.16 Troponin I < 0.012 Impressions: Chest X-Ray 01/19/17 12:46 IMPRESSION: NO ACUTE RADIOGRAPHIC FINDING IN THE CHEST. Head CT 01/19/17 12:46 IMPRESSION: No acute findings Assessment & Plan - Diagnosis (1) TIA (transient ischemic attack) Qualifiers: Transient cerebral ischemia type: unspecified Qualified Code(s): G45.9 - Transient cerebral ischemic attack, unspecified Is this a current diagnosis for this admission?: YesPlan: The patient gives a nonspecific history of visual blurring. This seems to involve both eyes. He claims to not be able to read his cell phone but he has his cell phone by his side. He could read my name tag. He has a grossly normal ocular examination though his vision was not tested. His blood pressure was not hypotensive. He is not hypoglycemic. He was oxygenating normally. He has been on aspirin daily. (2) Visual disturbance Is this a current diagnosis for this admission?: YesPlan: As above. (3) Hypertension Qualifiers: Hypertension type: essential hypertension Qualified Code(s): I10 - Essential (primary) hypertension Is this a current diagnosis for this admission?: YesPlan: Blood pressure is normal without Rx. (4) Hyperlipidemia Qualifiers: Hyperlipidemia type: other hyperlipidemia Qualified Code(s): E78.4 - Other hyperlipidemia Is this a current diagnosis for this admission?: YesPlan: We will recheck his cholesterol profile. He is intolerant of all statins. (5) History of stroke Is this a current diagnosis for this admission?: YesPlan: CT scan in the emergency department shows no acute findings. It did show old infarcts in the left frontal deep periventricular white matter along the corpus callosum and along the right frontal deep periventricular white matter/caudate lobe. These were unchanged from prior studies. There is also minimal chronic small vessel ischemic change in the bifrontal and biparietal regions, stable.
[2017-01-19] MEDS ORDERED: ENOXAPARIN SODIUM INJ 40 MG/0.4 ML DISP.SYRIN SUBCUT ONE (16:30)
[2017-01-19 16:46] LABS: CHOLESTEROL 307.47 mg/dL (0-200); Direct HDL 69 mg/dL (>40); TRIGLYCERIDES 83 mg/dL (<150)
[2017-01-19 16:57] LABS: DIRECT LDL 208 mg/dL (<100)
--- NOTE | 2017-01-19 20:38 | EKG REPORT ---
SEVERITY:- OTHERWISE NORMAL ECG - SINUS RHYTHM BORDERLINE LEFT AXIS DEVIATION : Confirmed by: Feliciano Mansfield MD 19-Jan-2017 20:36:58
[2017-01-20 06:17] LABS: ABSOLUTE BASOPHILS # (AUTO) 0.1 10^3/uL (0.0-0.2); ABSOLUTE EOSINOPHILS # (AUTO) 0.2 10^3/uL (0.0-0.6); ABSOLUTE MONOCYTES (AUTO) 0.7 10^3/uL (0.1-1.4); ABSOLUTE NEUT (AUTO) 4.9 10^3/uL (1.7-8.2); BASOPHILS % (AUTO) 0.9 % (0-2); HEMATOCRIT 43.8 % (37.9-51.0); HEMOGLOBIN 14.8 g/dL (13.5-17.0); HGB HCT DIFFERENCE 0.6; LYMPHOCYTES % (AUTO) 15.2 % (13-45); MEAN CORPUSCULAR HEMOGLOBIN 31.7 pg (27.0-33.4); MEAN CORPUSCULAR HGB CONC 33.7 g/dL (32.0-36.0); MEAN CORPUSCULAR VOLUME 94 fl (80-97); MONOCYTES % (AUTO) 10.1 % (3-13); RED BLOOD COUNT 4.66 10^6/uL (4.35-5.55); RED CELL DISTRIBUTION WIDTH 13.4 % (11.5-14.0); SEGMENTED NEUTROPHILS % (AUTO) 70.8 % (42-78); WHITE BLOOD COUNT 6.9 10^3/uL (4.0-10.5)
[2017-01-20 06:42] LABS: ANION GAP 10 (5-19); BLOOD UREA NITROGEN 14 mg/dL (7-20); CALCIUM 9.1 mg/dL (8.4-10.2); CARBON DIOXIDE 23 mmol/L (22-30); CHLORIDE 98 mmol/L (98-107); CREATININE RESULT 0.86 mg/dL (0.52-1.25); GLUCOSE 79 mg/dL (75-110); POTASSIUM 4.8 mmol/L (3.6-5.0)
[2017-01-20] MEDS ORDERED: ENOXAPARIN SODIUM INJ 40 MG/0.4 ML DISP.SYRIN SUBCUT SCH (08:00)
[2017-01-20 09:13] VITALS: BP 144/86
[2017-01-20] MEDS ORDERED: ASPIRIN 325 MG TABLET, ENT COATED PO SCH (10:00)
--- NOTE | 2017-01-20 10:39 | PDOC DISCHARGE SUMMARY ---
General - Admit/Disc Date/PCP Admission Date/Primary Care Provider: 01/19/17 16:49 LONNIE CLARKE MD Discharge Date: 01/20/17 - Discharge Diagnosis (1) TIA (transient ischemic attack) Is this a current diagnosis for this admission?: YesSummary: The patient gives a history of multiple TIAs and strokes in the past. His CT scan is confirmatory. He presented this time with vague visual blurring he claimed was in both eyes. His visual acuity was difficult to examine. Because of his past history, he was admitted for observation. (2) Visual disturbance Is this a current diagnosis for this admission?: YesSummary: As above. (3) Hypertension Is this a current diagnosis for this admission?: YesSummary: Blood pressure remained in good control throughout the hospitalization. (4) Hyperlipidemia Is this a current diagnosis for this admission?: YesSummary: Non-fasting lipid profile of 01/19/2017 shows elevated total cholesterol of 307, elevated LDL 208, normal triglycerides 83, and high HDL of 69. The patient is intolerant of statins which have caused severe myalgia. (5) History of stroke Is this a current diagnosis for this admission?: YesSummary: CT head/brain of 01/19/2017 done in the emergency department showed no acute findings. It did show old infarcts in the left frontal deep periventricular white matter along the corpus callosum and along the right frontal deep periventricular white matter/caudate lobe. These were unchanged from prior studies. There is also minimal chronic small vessel ischemic change in the bifrontal and biparietal regions, stable. - Additional Information Resuscitation Status: Full Code Discharge Diet: Cardiac Discharge Activity: Activity As Tolerated Home Medications: Aspirin [Ecotrin 325 mg EC Tablet] 325 mg PO DAILY 10/23/16 Amitriptyline HCl 1 tab PO DAILY 01/19/17 Clopidogrel Bisulfate [Plavix 75 mg Tablet] 75 mg PO DAILY #30 tablet 01/20/17 History of Present Illness History of Present Illness: CHRISTEL VELAZCO is a 61 year old male with a past history of hypertension, previous TIA, and previous strokes. He also has h/o alcohol abuse and cocaine abuse. He now complains of sudden blurred vision she experienced earlier today at his doctor's office. He tells me he cannot read his cell phone. In the past, his TIAs have been mainly hemiparetic on the left. These have recovered without residual. He states that he might have some residual numbness on the left side of his face. By way of risk factors, he had hypertension but this resolved after significant weight loss several years ago. He has dyslipidemia but is intolerant of statins. He is not diabetic. He was never a smoker. He takes aspirin daily. He was admitted to observation. Carotid studies and echocardiogram have apparently been done within the past year, so these will not be immediately repeated. Hospital Course Hospital Course: The following morning and he described general improvement and only mild residual blurring in his right eye. No other neurologic symptoms or signs have developed. The patient has had carotid scanning and echocardiography within this past year. He is on aspirin. He is intolerant of statins. He was advised to start Plavix and a prescription was given. He is discharged home and will follow up with his primary care physician within the week. Physical Exam Vital Signs: Temp Pulse Resp BP Pulse Ox 97.5 F 84 18 144/86 H 100 01/20/17 08:46 01/20/17 08:46 01/20/17 08:46 01/20/17 08:46 01/20/17 08:46 Intake & Output 01/19/17 01/20/17 01/21/17 06:59 06:59 06:59 Intake Total 400 Balance 400 Weight 65.6 kg Additional comments: Head exam: PRESENT: atraumatic, normocephalic Eye exam: PRESENT: conjunctiva pink, EOMI, PERRLA. ABSENT: nystagmus, scleral icterus Ear exam: PRESENT: normal external ear exam Mouth exam: PRESENT: moist, tongue midline Neck exam: ABSENT: carotid bruit, JVD, lymphadenopathy, thyromegaly Respiratory exam: PRESENT: clear to auscultation felicia. ABSENT: rales, rhonchi, wheezes Cardiovascular exam: PRESENT: RRR. ABSENT: diastolic murmur, rubs, systolic murmur Pulses: PRESENT: normal dorsalis pedis pul Vascular exam: PRESENT: normal capillary refill GI/Abdominal exam: PRESENT: normal bowel sounds, soft. ABSENT: distended, guarding, mass, organolmegaly, rebound, tenderness Rectal exam: PRESENT: deferred Extremities exam: PRESENT: full ROM. ABSENT: calf tenderness, clubbing, pedal edema Neurological exam: PRESENT: alert, awake, oriented to person, oriented to place , oriented to time, oriented to situation, CN II-XII grossly intact, other - speech is fluent. ABSENT: motor sensory deficit Psychiatric exam: PRESENT: appropriate affect, normal mood. ABSENT: homicidal ideation, suicidal ideation Skin exam: PRESENT: dry, intact, warm. ABSENT: cyanosis, rash Results Laboratory Results: 01/20/17 05:27 01/20/17 05:27 01/20/17 01/20/17 05:27 05:27 WBC 6.9 RBC 4.66 Hgb 14.8 Hct 43.8 MCV 94 MCH 31.7 MCHC 33.7 RDW 13.4 Plt Count 259 Seg Neutrophils % 70.8 Lymphocytes % 15.2 Monocytes % 10.1 Eosinophils % 3.0 Basophils % 0.9 Absolute Neutrophils 4.9 Absolute Lymphocytes 1.0 Absolute Monocytes 0.7 Absolute Eosinophils 0.2 Absolute Basophils 0.1 Sodium 131.0 L Potassium 4.8 Chloride 98 Carbon Dioxide 23 Anion Gap 10 BUN 14 Creatinine 0.86 Est GFR ( Amer) > 60 Est GFR (Non-Af Amer) > 60 Glucose 79 Calcium 9.1 Impressions: Chest X-Ray 01/19/17 12:46 IMPRESSION: NO ACUTE RADIOGRAPHIC FINDING IN THE CHEST. Head CT 01/19/17 12:46 IMPRESSION: No acute findings Qualifiers PATEINT BEING DISCHARGED WITH ANY OF THE FOLLOWING DIAGNOSIS?: Stroke Stroke Pt being discharged on Anti-thrombolytic therapy?: Yes Stroke Pt being discharged on Anti-coagulation therapy?: No Reason(s) for not prescribing Anti-coagulation therapy:: Not indicated Stroke Pt being discharged on Statins?: No Reason(s) for not prescribing Statins therapy:: Tx not tolerated - Severe myalgia with multiple tried statins
[2017-01-20] MEDS ORDERED: AMITRIPTYLINE HCL 50 MG TABLET PO SCH (22:00)
== END 2017-01-20 10:56 | disposition home or self-care (01) ==
LOC: ER 12:01 → INTOOBSV 16:49 → EH 16:49 → 3S 18:27
PROVIDERS: ADMIT Internal Medicine; ATTEND Internal Medicine
DX: G45.9 Transient cerebral ischemic attack, unspecified (principal); H53.8 Other visual disturbances; Z86.73 Personal history of transient ischemic attack (TIA), and cerebral infarction without residual deficits; I10 Essential (primary) hypertension; E78.5 Hyperlipidemia, unspecified; M54.9 Dorsalgia, unspecified; F32.9 Major depressive disorder, single episode, unspecified; M13.88 Other specified arthritis, other site; Z79.82 Long term (current) use of aspirin; Z87.898 Personal history of other specified conditions; Z88.8 Allergy status to other drugs, medicaments and biological substances; Z87.891 Personal history of nicotine dependence; Z82.49 Family history of ischemic heart disease and other diseases of the circulatory system
CPT/HCPCS: 93005; 99285; 36415 ×2; 82553; 82550; 85025 ×2; 85610; 85730; 80048; 80053; 81001; 84484; 80061; 71010; 70450; 93010; G0378 ×3; J1650 ×2

== ENCOUNTER 2017-03-04 13:21 | Emergency (ER) | payer BC, MEDICAID ==
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
[2017-03-04 13:46] LABS: ABSOLUTE BASOPHILS # (AUTO) 0.1 10^3/uL (0.0-0.2); ABSOLUTE EOSINOPHILS # (AUTO) 0.1 10^3/uL (0.0-0.6); ABSOLUTE LYMPHOCYTES (AUTO) 0.8 10^3/uL (0.5-4.7); ABSOLUTE MONOCYTES (AUTO) 0.6 10^3/uL (0.1-1.4); ABSOLUTE NEUT (AUTO) 5.8 10^3/uL (1.7-8.2); BASOPHILS % (AUTO) 0.8 % (0-2); EOSINOPHILS % (AUTO) 1.8 % (0-6); HEMATOCRIT 40.5 % (37.9-51.0); HEMOGLOBIN 13.5 g/dL (13.5-17.0); LYMPHOCYTES % (AUTO) 10.5 % (13-45); MEAN CORPUSCULAR HEMOGLOBIN 31.3 pg (27.0-33.4); MEAN CORPUSCULAR HGB CONC 33.3 g/dL (32.0-36.0); MEAN CORPUSCULAR VOLUME 94 fl (80-97); MONOCYTES % (AUTO) 8.7 % (3-13); RED BLOOD COUNT 4.31 10^6/uL (4.35-5.55); RED CELL DISTRIBUTION WIDTH 13.3 % (11.5-14.0); SEGMENTED NEUTROPHILS % (AUTO) 78.2 % (42-78); WHITE BLOOD COUNT 7.4 10^3/uL (4.0-10.5)
[2017-03-04 14:02] LABS: ALANINE AMINOTRANSFERASE 42 U/L (21-72); ALBUMIN 3.5 g/dL (3.5-5.0); ALKALINE PHOSPHATASE 78 U/L (38-126); ANION GAP 9 (5-19); ASPARTATE AMINO TRANSFERASE 55 U/L (17-59); BILIRUBIN,DIRECT 0.3 mg/dL (0.0-0.4); BILIRUBIN,TOTAL 1.1 mg/dL (0.2-1.3); BLOOD UREA NITROGEN 19 mg/dL (7-20); CALCIUM 8.7 mg/dL (8.4-10.2); CARBON DIOXIDE 26 mmol/L (22-30); CHLORIDE 101 mmol/L (98-107); CREATINE KINASE 971 U/L (55-170); CREATININE RESULT 0.99 mg/dL (0.52-1.25); GLUCOSE 98 mg/dL (75-110); MAGNESIUM 1.9 mg/dL (1.6-2.3); POTASSIUM 3.9 mmol/L (3.6-5.0); SODIUM 135.6 mmol/L (137-145); TOTAL PROTEIN 6.5 g/dL (6.3-8.2)
[2017-03-04 14:03] LABS: ALCOHOL < 10 mg/dL (NONE DETECTED)
[2017-03-04 14:13] LABS: CREATINE KINASE MB 3.87 ng/mL (<4.55)
[2017-03-04 14:14] LABS: TROPONIN I < 0.012 ng/mL
--- NOTE | 2017-03-04 14:16 | RADIOLOGY REPORT (SQ) ---
EXAM DESCRIPTION: CHEST SINGLE VIEW COMPLETED DATE/TIME: 03/04/2017 2:05 pm REASON FOR STUDY: weakness COMPARISON: 01/19/2017 EXAM PARAMETERS: NUMBER OF VIEWS: One view. TECHNIQUE: Single frontal radiographic view of the chest acquired. RADIATION DOSE: NA LIMITATIONS: None. FINDINGS: LUNGS AND PLEURA: No opacities, masses or pneumothorax. No pleural effusion. MEDIASTINUM AND HILAR STRUCTURES: No masses. Contour normal. HEART AND VASCULAR STRUCTURES: Heart normal in size. Normal vasculature. BONES: No acute findings. HARDWARE: None in the chest. OTHER: No other significant finding. IMPRESSION: NO ACUTE RADIOGRAPHIC FINDING IN THE CHEST. TECHNICAL DOCUMENTATION: JOB ID: [id number]
[2017-03-04] MEDS ORDERED: NORMAL SALINE 1000 ML 1,000 ML IV PRN (14:25)
[2017-03-04 15:45] LABS: APPEARANCE,URINE CLEAR; BILIRUBIN,URINE NEGATIVE (NEGATIVE); GLUCOSE, URINE NEGATIVE (NEGATIVE); KETONES,URINE NEGATIVE (NEGATIVE); LEUKOCYTE ESTERASE,URINE NEGATIVE (NEGATIVE); NITRITE,URINE NEGATIVE (NEGATIVE); PROTEIN,URINE NEGATIVE (NEGATIVE); URINE SPECIFIC GRAVITY 1.011
[2017-03-04 15:58] LABS: URINE BARBITURATES SCREEN NEGATIVE; URINE METHADONE SCREEN NEGATIVE; URINE OPIATES LOW NEGATIVE; URINE PHENCYCLIDINE SCREEN NEGATIVE
[2017-03-04 17:26] VITALS: BP 143/100
--- NOTE | 2017-03-04 18:01 | EKG REPORT ---
SEVERITY:- NORMAL ECG - SINUS RHYTHM : Confirmed by: Feliciano Mansfield MD 04-Mar-2017 18:00:16
== END 2017-03-04 18:00 | disposition home or self-care (01) ==
LOC: ER 13:21
DX: T67.9XXA Effect of heat and light, unspecified, initial encounter (principal); X30.XXXA Exposure to excessive natural heat, initial encounter; Y93.01 Activity, walking, marching and hiking; F14.10 Cocaine abuse, uncomplicated; T14.8 Other injury of unspecified body region; W57.XXXA Bitten or stung by nonvenomous insect and other nonvenomous arthropods, initial encounter; R53.1 Weakness; R42 Dizziness and giddiness; I10 Essential (primary) hypertension; Z88.8 Allergy status to other drugs, medicaments and biological substances; Z86.73 Personal history of transient ischemic attack (TIA), and cerebral infarction without residual deficits
CPT/HCPCS: 93005; 99284; 36415; 82553; 80307 ×2; 82550; 83735; 85025; 80053; 81001; 84484; 71010; 93010; J7030

== ENCOUNTER 2017-03-07 17:04 | Emergency (ER) | payer BC ==
[2017-03-07 17:42] LABS: ABSOLUTE BASOPHILS # (AUTO) 0.1 10^3/uL (0.0-0.2); ABSOLUTE EOSINOPHILS # (AUTO) 0.2 10^3/uL (0.0-0.6); ABSOLUTE LYMPHOCYTES (AUTO) 0.9 10^3/uL (0.5-4.7); ABSOLUTE MONOCYTES (AUTO) 0.7 10^3/uL (0.1-1.4); ABSOLUTE NEUT (AUTO) 6.2 10^3/uL (1.7-8.2); BASOPHILS % (AUTO) 0.7 % (0-2); EOSINOPHILS % (AUTO) 2.5 % (0-6); HEMATOCRIT 39.6 % (37.9-51.0); HEMOGLOBIN 13.3 g/dL (13.5-17.0); HGB HCT DIFFERENCE 0.3; LYMPHOCYTES % (AUTO) 11.5 % (13-45); MEAN CORPUSCULAR HEMOGLOBIN 31.6 pg (27.0-33.4); MEAN CORPUSCULAR HGB CONC 33.6 g/dL (32.0-36.0); MEAN CORPUSCULAR VOLUME 94 fl (80-97); MONOCYTES % (AUTO) 8.2 % (3-13); RED BLOOD COUNT 4.21 10^6/uL (4.35-5.55); RED CELL DISTRIBUTION WIDTH 13.4 % (11.5-14.0); SEGMENTED NEUTROPHILS % (AUTO) 77.1 % (42-78)
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
[2017-03-07 17:57] LABS: ALANINE AMINOTRANSFERASE 35 U/L (21-72); ALBUMIN 3.8 g/dL (3.5-5.0); ALKALINE PHOSPHATASE 81 U/L (38-126); ANION GAP 8 (5-19); ASPARTATE AMINO TRANSFERASE 28 U/L (17-59); BILIRUBIN,DIRECT 0.3 mg/dL (0.0-0.4); BILIRUBIN,TOTAL 0.6 mg/dL (0.2-1.3); BLOOD UREA NITROGEN 16 mg/dL (7-20); CALCIUM 8.9 mg/dL (8.4-10.2); CARBON DIOXIDE 28 mmol/L (22-30); CHLORIDE 100 mmol/L (98-107); CREATININE RESULT 0.91 mg/dL (0.52-1.25); GLUCOSE 97 mg/dL (75-110); SODIUM 136.4 mmol/L (137-145); TOTAL PROTEIN 6.7 g/dL (6.3-8.2)
[2017-03-07 17:59] LABS: ALCOHOL < 10 mg/dL (NONE DETECTED)
[2017-03-07 18:20] LABS: APPEARANCE,URINE CLEAR; BILIRUBIN,URINE NEGATIVE (NEGATIVE); GLUCOSE, URINE NEGATIVE (NEGATIVE); KETONES,URINE NEGATIVE (NEGATIVE); LEUKOCYTE ESTERASE,URINE NEGATIVE (NEGATIVE); NITRITE,URINE NEGATIVE (NEGATIVE); PROTEIN,URINE NEGATIVE (NEGATIVE); URINE SPECIFIC GRAVITY 1.015
[2017-03-07 18:36] LABS: URINE BARBITURATES SCREEN NEGATIVE; URINE METHADONE SCREEN NEGATIVE; URINE OPIATES LOW NEGATIVE; URINE PHENCYCLIDINE SCREEN NEGATIVE
--- NOTE | 2017-03-07 19:49 | EKG REPORT ---
SEVERITY:- NORMAL ECG - SINUS RHYTHM : Confirmed by: Feliciano Mansfield MD 07-Mar-2017 19:49:16
--- NOTE | 2017-03-08 11:18 | ER Document Report ---
Doctor's Note Notes: 03/08/17 11:17 Rounds: Chart reviewed and patient interview. Patient is eating lunch. Says he is feeling better. Says he was able to get a good night sleep and that helped. Patient's drug screen was positive for cocaine and he says that was several days ago and it was "free" so that is why did it. Patient's vital signs are all essentially normal. Lab studies were otherwise normal. Patient appears to be medically stable for transfer or discharge. Tahira Levy MD
[2017-03-08 15:55] VITALS: BP 154/86
== END 2017-03-08 15:55 | disposition home or self-care (01) ==
LOC: ER 17:04
DX: F32.9 Major depressive disorder, single episode, unspecified (principal); F14.10 Cocaine abuse, uncomplicated; Z59.0 Homelessness; R45.851 Suicidal ideations; I10 Essential (primary) hypertension; Z86.73 Personal history of transient ischemic attack (TIA), and cerebral infarction without residual deficits; Z88.8 Allergy status to other drugs, medicaments and biological substances
CPT/HCPCS: 36415; 80053; 80307; 81001; 85025; 93005; 93010; 99285

== ENCOUNTER 2017-04-12 07:35 | Emergency (ER) | payer BC ==
[2017-04-12 07:43] VITALS: BP 135/84
--- NOTE | 2017-04-12 08:16 | ER Document Report ---
HPI - HPI Pain Level: 1 Notes: Patient is a 62-year-old male who presents the ED complaining of the last lower molar pain to #191 week. Patient states that he has not noticed any drainage, but has noticed swelling to his left lower jaw. Patient states that he is here to get an antibiotic as he believes it is infected. Patient states that he does have a dentist, but did not call to schedule appointment yet. He is still able to eat and drink without any difficulties. He has not noticed any issues with speech or any fever. The pain does not radiate. He has been using over- the-counter meds with minimal relief. Denies any headache, neck pain/stiffness , URI, sore throat, chest pain, palpitations, syncope, cough, shortness of breath, wheeze, dyspnea, abdominal pain, nausea/vomiting/diarrhea, dysuria, hematuria, numbness/tingling, or rash. Patient denies any smoking or illicit drug use. PCM is Dr. Clarke. - ROS Notes: REVIEW OF SYSTEMS: CONSTITUTIONAL : Denies fever, chills, or sweats. Denies recent illness. EENT: see hpi. no eye concerns CARDIOVASCULAR: Denies chest pain. Denies palpitations or racing or irregular heart beat. Denies ankle edema. RESPIRATORY: Denies cough, cold, or chest congestion. Denies shortness of breath, difficulty breathing, or wheezing. GASTROINTESTINAL: Denies abdominal pain or distention. Denies nausea, vomiting , or diarrhea. Denies blood in vomitus, stools, or per rectum. Denies black, tarry stools. Denies constipation. GENITOURINARY: Denies difficulty urinating, painful urination, burning, frequency, blood in urine, or discharge. MUSCULOSKELETAL: Denies back or neck pain or stiffness. Denies joint pain or swelling. SKIN: Denies rash, lesions or sores. NEUROLOGICAL: Denies confusion or altered mental status. Denies passing out or loss of consciousness. Denies dizziness or lightheadedness. Denies headache. Denies weakness or paralysis or loss of use of either side. Denies problems with gait or speech. Denies sensory loss, numbness, or tingling. ALL OTHER SYSTEMS REVIEWED AND NEGATIVE. Dictation was performed using [employer] voice recognition software - REPRODUCTIVE Reproductive: DENIES: : - DERM Skin Color: Normal Past Medical History - Social History Smoking Status: Never Smoker Family History: Reviewed & Not Pertinent, CAD, Other - Past Medical History Cardiac Medical History: Reports: Hx Hypertension - hx of in past-no current meds Neurological Medical History: Reports: Hx Cerebrovascular Accident - 6 TIAs Renal/ Medical History: Denies: Hx Peritoneal Dialysis GI Medical History: Reports: Hx Gastroesophageal Reflux Disease Musculoskeltal Medical History: Reports Hx Arthritis Psychiatric Medical History: Reports: Hx Depression Past Surgical History: Reports: Hx Appendectomy - hernia, Hx Tonsillectomy, Other - Vasectomy - Immunizations Hx Diphtheria, Pertussis, Tetanus Vaccination: Yes Vertical Provider Document - CONSTITUTIONAL Agree With Documented VS: Yes Notes: PHYSICAL EXAMINATION: GENERAL: Well-appearing, well-nourished and in no acute distress. HEAD: Atraumatic, normocephalic. EYES: Pupils equal round and reactive to light, extraocular movements intact, sclera anicteric, conjunctiva are normal. ENT: EAC clear b/l. TM's intact b/l without erythema, fluid, or perforation. Nares patent and without discharge. oropharynx clear without exudates. No tonsilar hypertrophy or erythema. Moist mucous membranes. No sinus tenderness. Uvula midline. No palatine shift. No tongue protrusion. Mouth: + decay and gingivitis/mild swelling to the left #19 tooth. + mild swelling to the left lower jaw. No obvious abscess or discharge noted. + tenderness to palp. NECK: Normal range of motion, supple without lymphadenopathy. No rigidity/ meningismus. LUNGS: Breath sounds clear to auscultation bilaterally and equal. No wheezes rales or rhonchi. HEART: Regular rate and rhythm without murmurs, rubs, gallops. ABDOMEN: Soft, nontender, nondistended abdomen. No guarding, no rebound. No masses appreciated. Normal bowel sounds present. No CVA tenderness bilaterally. Musculoskeletal: FROM to passive/active. Strength 5+/5. Extremities: No cyanosis, clubbing, or edema b/l. Peripheral pulses 2+. Capillary refill less than 3 seconds. NEUROLOGICAL: Cranial nerves grossly intact. Normal speech, normal gait. Normal sensory, motor exams PSYCH: Normal mood, normal affect. SKIN: Warm, Dry, normal turgor, no rashes or lesions noted. - INFECTION CONTROL TRAVEL OUTSIDE OF THE [place] IN LAST 30 DAYS: No - RESPIRATORY O2 Sat by Pulse Oximetry: 99 Course - Re-evaluation Re-evalutation: 04/12/17 08:15 Patient is an afebrile, well-hydrated, 62-year-old male who presents the ED with a dental infection to his #19 tooth. Vitals are stable. PE otherwise unremarkable. Low suspicion for any meningitis, sepsis, peritonsillar/ pharyngeal abscess, respiratory compromise, Wolfgang's, temporal arteritis, or other emergent systemic condition at this time. Patient is aware this condition can change from initial presentation and he needs to monitor symptoms closely. I will send him home with a prescription for clindamycin 4 times daily 10 days. Conservative measures otherwise for symptoms. Call to schedule an appointment with a dentist for further evaluation and management. Recheck with your PCM this week as well. Return to the ED with any worsening/ concerning symptoms otherwise as reviewed in discharge. Patient is in agreement. - Vital Signs Vital signs: Temp Pulse Resp BP Pulse Ox 97.7 F 94 16 135/84 H 99 04/12/17 07:41 04/12/17 07:41 04/12/17 07:41 04/12/17 07:41 04/12/17 07:41 Discharge - Discharge Clinical Impression: Toothache Condition: Stable Disposition: HOME, SELF-CARE Instructions: Toothache ([facility]), Clindamycin ([facility]) Additional Instructions: [place] and floss twice daily Maintain fluid intake Take antibiotics as directed Mouthwash, salt water gargles, peroxide rinse as needed Tylenol/ibuprofen as needed Recheck with PCM this week Call today/tomorrow and schedule an appointment with your dentist for further evaluation Return to the ED with any worsening symptoms and/or development of fever, headache, facial swelling, swelling of lips/tongue/throat, trouble swallowing, drooling, hoarseness, neck pain/stiffness, chest pain, palpitations, syncope, shortness of breath, trouble breathing, abdominal pain, n/v/d, numbness/tingling , or other worsening symptoms that are concerning to you. Prescriptions: Clindamycin HCl [Cleocin 300 mg Capsule] 300 mg PO QID #40 capsule Forms: Elevated Blood Pressure Referrals: DENNYS CLARKE PA-C [Primary Care Provider] - Follow up in 3-5 days
== END 2017-04-12 08:26 | disposition home or self-care (01) ==
LOC: ER 07:35
DX: K04.7 Periapical abscess without sinus (principal); K02.9 Dental caries, unspecified; K05.10 Chronic gingivitis, plaque induced; K08.89 Other specified disorders of teeth and supporting structures; R22.0 Localized swelling, mass and lump, head; I10 Essential (primary) hypertension
CPT/HCPCS: 99282

== ENCOUNTER 2017-05-31 06:43 | Observation (INO) | payer BC, MEDICAID ==
--- NOTE | 2017-05-31 07:09 | RADIOLOGY REPORT (SQ) ---
EXAM DESCRIPTION: CHEST SINGLE VIEW CLINICAL HISTORY: 62 years, Male, stroke protocol COMPARISON: Chest radiographs of March 04, 2017. NUMBER OF VIEWS: 1 TECHNIQUE: Routine portable chest radiograph protocol. LIMITATIONS: None. FINDINGS: Cardiac size and pulmonary vasculature are normal. Lungs are clear. No pleural effusions or pneumothorax. Bones appear normal on this single view. IMPRESSION: Unchanged normal for age chest radiograph. 2011 [employer]- All Rights Reserved
--- NOTE | 2017-05-31 07:13 | ER Document Report ---
ED Neuro Symptoms/Deficit - General Mode of Arrival: Ambulatory Information source: Patient TRAVEL OUTSIDE OF THE [place] IN LAST 30 DAYS: No - HPI Awoke with symptoms: No Symptoms are: Constant Duration: Continues in ED <SHANNONFIDELINA GREY - Last Filed: 05/31/17 09:08> <SURY ANDRES - Last Filed: 05/31/17 11:11> - General Chief Complaint: S/S of Possible Stroke Stated Complaint: POSSIBLE STROKE Time Seen by Provider: 05/31/17 07:03 Notes: Patient is a 62 year old male that presents to the emergency department today with complaints of left sided weakness since "the day before yesterday". Patient states he has had several TIAs in the past and his symptoms today are similar to his previous TIAs. Patient states [facility] (FIDELINA ORTEGA) This 62-year-old male patient comes emergency room complaining of onset 2 days ago of left facial numbness weakness with left upper and lower extremity weakness. He thinks he had another stroke or TIA. He has had at least one documented stroke based on CT scan, and history of several TIAs. A recent visit to the emergency room he was positive for cocaine. He [facility]. There is no chest pain. At this time there are no obvious focal motor deficits, weaknesses, or thought or speech problems. He does appear to have slight left facial weakness, but when he protrudes his tongue deviated somewhat to the right. He has normal strength in his lower extremities without hyperreflexia. He has good tree sapper strength in his upper extremities. He is not a TPA candidate due to the onset of symptoms being up to 2 days ago. The patient is currently only on aspirin. He used to be on Plavix which I think was because he could not afford Aggrenox. He does have [employer] as a residential benefit from [employer], but his policy does not cover medications. The patient does currently reside [facility] the [facility]. He is unemployed. ( SURY ANDRES) - Related Data Allergies/Adverse Reactions: Rvkrqnl-Lai-Eim Reductase Inhibitor Allergy (Severe, Verified 04/12/17 07:43) Muscle Aches Past Medical History - General Information source: Patient - Social History Smoking Status: Never Smoker Cigarette use (# per day): No Frequency of alcohol use: None Drug Abuse: None Family History: Reviewed & Not Pertinent, CAD, Other Patient has suicidal ideation: No Patient has homicidal ideation: No - Past Medical History Cardiac Medical History: Reports: Hx Hypertension - hx of in past-no current meds Neurological Medical History: Reports: Hx Cerebrovascular Accident - 6 TIAs GI Medical History: Reports: Hx Gastroesophageal Reflux Disease Musculoskeltal Medical History: Reports Hx Arthritis Psychiatric Medical History: Reports: Hx Depression Past Surgical History: Reports: Hx Appendectomy - hernia, Hx Tonsillectomy, Other - Vasectomy - Immunizations Hx Diphtheria, Pertussis, Tetanus Vaccination: Yes <FIDELINA ORTEGA - Last Filed: 05/31/17 09:08> Review of Systems - Review of Systems Constitutional: No symptoms reported EENT: No symptoms reported Cardiovascular: No symptoms reported Respiratory: No symptoms reported Gastrointestinal: No symptoms reported Genitourinary: No symptoms reported Male Genitourinary: No symptoms reported Musculoskeletal: No symptoms reported Skin: No symptoms reported Hematologic/Lymphatic: No symptoms reported Neurological/Psychological: See HPI, Weakness - left sided, x2 days <FIDELINA ORTEGA - Last Filed: 05/31/17 09:08> Physical Exam - Vital signs Interpretation: Normal - General General appearance: Appears well, Alert - HEENT Head: Normocephalic, Atraumatic Eyes: Normal Pupils: PERRL - Respiratory Respiratory status: No respiratory distress Breath sounds: Normal Chest palpation: Normal - Cardiovascular Rhythm: Regular Heart sounds: Normal auscultation Murmur: No - Abdominal Inspection: Normal Distension: No distension Bowel sounds: Normal Tenderness: Nontender Organomegaly: No organomegaly - Back Back: Normal, Nontender - Extremities General upper extremity: Normal inspection, Normal ROM, Normal strength. No: Edema General lower extremity: Normal inspection, Normal ROM, Normal strength. No: Edema - Neurological Neuro grossly intact: Yes Cognition: Normal Orientation: AAOx4 [place] Coma Scale Eye Opening: Spontaneous Chris Coma Scale Verbal: Oriented Chris Coma Scale Motor: Obeys Commands Chris Coma Scale Total: 15 Speech: Normal - Psychological Associated symptoms: Normal affect, Normal mood - Skin Skin Temperature: Warm Skin Moisture: Dry Skin Color: Normal <FIDELINA ORTEGA - Last Filed: 05/31/17 09:08> <SURY ANDRES - Last Filed: 05/31/17 11:11> - Vital signs Vitals: Temp Pulse Resp BP Pulse Ox 98.1 F 100 83 H 137/81 H 100 05/31/17 06:48 05/31/17 06:48 05/31/17 06:48 05/31/17 06:48 05/31/17 06:48 - Neurological Notes: Slight left sided facial droop, but smile is symmetric bilaterally. Slight right sided tongue deviation. Behavior Clinician strength is 5/5 bilaterally. Leg strength is 5/5 bilaterally. (FIDELINA ORTEGA) Course - Laboratory Result Diagrams: 05/31/17 07:10 05/31/17 07:10 <FIDELINA ORTEGA - Last Filed: 05/31/17 09:08> - Laboratory Result Diagrams: 05/31/17 07:10 05/31/17 08:20 - Diagnostic Test Radiology reviewed: Image reviewed, Reports reviewed - Chest x-ray does not show an acute process. CT scan of the head shows an old right lentiform nucleus lacunar infarct. There are no acute changes. - EKG Interpretation by [facility] E[facility] shows normal: Sinus rhythm, [place], Intervals, QRS Complexes, ST-T Waves Rate: Normal - 80 Rhythm: NSR - Consults Dr. Diaz Time consulted: 10:35 Consulted provider: will come to ER - IMCU observation <SURY ANDRES - Last Filed: 05/31/17 11:11> - Re-evaluation Re-evalutation: 05/31/17 11:08 At this time the patient's left facial motor weakness that appeared subtle initially, now appears to be completely gone. (SURY ANDRES) - Vital Signs Vital signs: Temp Pulse Resp BP Pulse Ox 98.1 F 72 17 143/95 H 100 05/31/17 06:48 05/31/17 10:00 05/31/17 10:00 05/31/17 10:00 05/31/17 10:00 - Laboratory Laboratory results interpreted by me: 05/31/17 05/31/17 07:10 08:20 Lymphocytes % 12.4 L Sodium 133.6 L Chloride 97 L Discharge <FIDELINA ORTEGA - Last Filed: 05/31/17 09:08> - Discharge Admitting Provider: Hospitalist Unit Admitted: IMCU - <SURY ANDRES - Last Filed: 05/31/17 11:11> - Discharge Clinical Impression: TIA (transient ischemic attack) Qualifiers: Transient cerebral ischemia type: unspecified Qualified Code(s): G45.9 - Transient cerebral ischemic attack, unspecified Condition: Stable Disposition: ADMITTED OBSERVATION Referrals: DENNYS CLARKE PA-C [Primary Care Provider] - Follow up as needed Scribe Documentation - Scribe Written by Scribe:: Jessy Bhat, 05/31/2017 0835 acting as scribe for :: Rona <FIDELINA ORTEGA - Last Filed: 05/31/17 09:08>
--- NOTE | 2017-05-31 07:16 | RADIOLOGY REPORT (SQ) ---
EXAM: NONCONTRAST BRAIN CT EXAMINATION. CLINICAL INDICATION: Trauma protocol. COMPARISON: Compared to brain CT of January 19, 2017. TECHNIQUE: Using low dose helical CT technique, thin section axial images were performed through the brain without the administration of intravenous or subarachnoid contrast material. FINDINGS: Unchanged remote lacunar infarction in the right lentiform nucleus measuring approximately 10 mm in greatest transverse dimension. Brain volume is otherwise normal. No diffuse brain swelling or brain herniation. No hydrocephalus. No subdural or epidural hematomas. No large subacute brain infarction. No parenchymal brain hemorrhage or evidence of intracranial mass lesion. Cerebral white matter is otherwise grossly normal. Caudate heads, lentiform nuclei, thalami and internal capsules are normal. Bones of the skull and skull base are normal. The middle ears and mastoid air cells are clear. Paranasal sinuses are clear. IMPRESSION: 1. Unchanged chest radiograph. No intracranial hemorrhage or evidence of large subacute brain infarction. Findings discussed with Dr. Choudhary on 05/31/2017 at 0515 hours MST.
[2017-05-31 07:26] LABS: ABSOLUTE BASOPHILS # (AUTO) 0.1 10^3/uL (0.0-0.2); ABSOLUTE EOSINOPHILS # (AUTO) 0.1 10^3/uL (0.0-0.6); ABSOLUTE LYMPHOCYTES (AUTO) 0.8 10^3/uL (0.5-4.7); ABSOLUTE MONOCYTES (AUTO) 0.6 10^3/uL (0.1-1.4); ABSOLUTE NEUT (AUTO) 4.6 10^3/uL (1.7-8.2); BASOPHILS % (AUTO) 0.9 % (0-2); EOSINOPHILS % (AUTO) 2.1 % (0-6); HEMATOCRIT 42.2 % (37.9-51.0); HEMOGLOBIN 14.8 g/dL (13.5-17.0); HGB HCT DIFFERENCE 2.2; LYMPHOCYTES % (AUTO) 12.4 % (13-45); MEAN CORPUSCULAR HEMOGLOBIN 32.1 pg (27.0-33.4); MEAN CORPUSCULAR VOLUME 92 fl (80-97); RED CELL DISTRIBUTION WIDTH 13.7 % (11.5-14.0); SEGMENTED NEUTROPHILS % (AUTO) 74.6 % (42-78); WHITE BLOOD COUNT 6.1 10^3/uL (4.0-10.5)
[2017-05-31 07:30] LABS: PARTIAL THROMBOPLASTIN TIME 34.5 SEC (23.5-35.8)
[2017-05-31 07:33] LABS: PROTHROMBIN TIME 13.7 SEC (11.4-15.4)
[2017-05-31 08:56] LABS: APPEARANCE,URINE CLEAR; BILIRUBIN,URINE NEGATIVE (NEGATIVE); GLUCOSE, URINE NEGATIVE (NEGATIVE); KETONES,URINE NEGATIVE (NEGATIVE); LEUKOCYTE ESTERASE,URINE NEGATIVE (NEGATIVE); NITRITE,URINE NEGATIVE (NEGATIVE); PROTEIN,URINE NEGATIVE (NEGATIVE); URINE SPECIFIC GRAVITY 1.005; UROBILINOGEN,URINE NEGATIVE mg/dL (<2.0)
[2017-05-31 09:11] LABS: URINE BARBITURATES SCREEN NEGATIVE; URINE METHADONE SCREEN NEGATIVE; URINE OPIATES LOW NEGATIVE; URINE PHENCYCLIDINE SCREEN NEGATIVE
--- NOTE | 2017-05-31 09:13 | EKG REPORT ---
SEVERITY:- NORMAL ECG - SINUS RHYTHM : Confirmed by: Park Macias MD 31-May-2017 09:12:49
[2017-05-31 09:17] LABS: ALANINE AMINOTRANSFERASE 27 U/L (21-72); ALBUMIN 4.1 g/dL (3.5-5.0); ALKALINE PHOSPHATASE 77 U/L (38-126); ANION GAP 10 (5-19); ASPARTATE AMINO TRANSFERASE 18 U/L (17-59); BILIRUBIN,DIRECT 0.3 mg/dL (0.0-0.4); BILIRUBIN,TOTAL 0.8 mg/dL (0.2-1.3); BLOOD UREA NITROGEN 10 mg/dL (7-20); CALCIUM 9.5 mg/dL (8.4-10.2); CARBON DIOXIDE 27 mmol/L (22-30); CHLORIDE 97 mmol/L (98-107); CREATINE KINASE 55 U/L (55-170); CREATININE RESULT 0.98 mg/dL (0.52-1.25); GLUCOSE 89 mg/dL (75-110); POTASSIUM 4.7 mmol/L (3.6-5.0); SODIUM 133.6 mmol/L (137-145); TOTAL PROTEIN 6.9 g/dL (6.3-8.2)
[2017-05-31 09:26] LABS: CREATINE KINASE MB 0.99 ng/mL (<4.55)
[2017-05-31 09:30] LABS: TROPONIN I < 0.012 ng/mL
[2017-05-31] MEDS ORDERED: LABETALOL HCL INJ 20 MG/4 ML DISP.SYRIN IV PRN (10:33)
--- NOTE | 2017-05-31 12:25 | RADIOLOGY REPORT (SQ) ---
EXAM DESCRIPTION: VENOUS UNILATERAL LOWER COMPLETED DATE/TIME: 05/31/2017 12:12 pm REASON FOR STUDY: left lower extremity swelling COMPARISON: None. TECHNIQUE: Dynamic and static whiteside scale and color images acquired of the left leg venous system. Se lected spectral images acquired with additional compression and augmentation maneuvers. The contralat eral common femoral vein and saphenofemoral junction were also imaged. Images stored on PACS. LIMITATIONS: None. FINDINGS: COMMON FEMORAL: Normal phasicity, compression and augmentation. No visualized echogenic ma terial on whiteside scale. No defects on color images. FEMORAL: Normal compression and augmentation. No visualized echogenic material on whiteside scale. No defe cts on color images. POPLITEAL: Normal compression, augmentation. No visualized echogenic material on whiteside scale. No defec ts on color images. CALF VESSELS: Normal compression, augmentation. No visualized echogenic material on whiteside scale. No de fects on color images. GSV and SSV: Normal compression, augmentation. No visualized echogenic material on whiteside scale. No def ects on color images. ANY DEEP VENOUS INSUFFICIENCY: Not evaluated. ANY EVIDENCE OF POPLITEAL CYST: No. OTHER: No other significant finding. CONTRALATERAL COMMON FEMORAL VEIN AND SAPHENOFEMORAL JUNCTION: Normal phasicity, compression and augmentation. No visualized echogenic material on whiteside scale. No de fects on color images. IMPRESSION: NO EVIDENCE OF DVT OR SVT IN THE LEFT LEG. TECHNICAL DOCUMENTATION: JOB ID: [id number] [employer]- All Rights Reserved
[2017-05-31] MEDS ORDERED: ASPIRIN 81 MG TABLET, CHEWABLE PO ONE (12:30)
--- NOTE | 2017-05-31 12:31 | RADIOLOGY REPORT (SQ) ---
EXAM DESCRIPTION: CAROTID DOPPLER COMPLETED DATE/TIME: 05/31/2017 12:11 pm REASON FOR STUDY: tia COMPARISON: 06/07/2016 TECHNIQUE: Grayscale ultrasound, Doppler velocity and spectra, and color Doppler images acquired of the extra-cranial carotid and vertebral arteries. Images stored on PACS. LIMITATIONS: None. FINDINGS: RIGHT CAROTID CCA Velocities: Within normal limits. ICA Velocities Peak systolic 0.82 m/s. End diastolic 0.25 m/s. Proximal ICA/CCA peak systolic ratio 0.7. Spectra normal. No significant plaque. LEFT CAROTID CCA Velocities: Within normal limits. ICA Velocities Peak systolic 0.91 m/s. End diastolic 0.36 m/s. Proximal ICA/CCA peak systolic ratio 0.9. Spectra normal. No significant plaque. VERTEBRAL ARTERIES: Antegrade flow. Normal waveforms. SUBCLAVIAN ARTERIES: No finding. OTHER: No other significant finding. IMPRESSION: NO HEMODYNAMICALLY SIGNIFICANT STENOSIS. COMMENT: Quality ID #195: Velocity criteria are extrapolated from the diameter data as defined by t he Society of Radiologists in Ultrasound Consensus Conference. Radiology 2003: 229; 340-346. TECHNICAL DOCUMENTATION: JOB ID: [id number] [employer]- All Rights Reserved
[2017-05-31] MEDS ORDERED: CARBIDOPA/LEVODOPA 10-100 MG TABLET PO ONE (12:45)
[2017-05-31] MEDS: CARBIDOPA/LEVODOPA 10-100 MG TABLET PO SCH ×2 (15:06→21:09)
[2017-05-31] MEDS: HEPARIN SOD (PORCINE) 5,000 UNIT/ML 1 ML SYRINGE SUBCUT SCH ×2 (15:07→21:08)
--- NOTE | 2017-05-31 17:42 | RADIOLOGY REPORT (SQ) ---
EXAM DESCRIPTION: MRI HEAD WITHOUT COMPLETED DATE/TIME: 05/31/2017 5:19 pm REASON FOR STUDY: tia COMPARISON: 10/23/2016 TECHNIQUE: Multiplanar imaging includes non-contrasted T1, T2, FLAIR, and Diffusion with ADC map seq uences. Images stored on PACS. LIMITATIONS: None. FINDINGS: ANATOMY: No anomalies. Normal vascular flow voids. Pituitary fossa normal. CSF SPACES: Normal in size and contour. No hemorrhage. CEREBRUM: A few high-signal intensity lesions scattered throughout the white matter on FLAIR imaging with distribution suggesting chronic micro-vascular ischemic change. Sulci and gyri normal in size a nd contour. No evidence of hemorrhage, mass or extraaxial fluid collection. POSTERIOR FOSSA: No signal alteration. No hemorrhage. No edema, masses or mass effect. Internal idris tory canals, cerebello-pontine angles, mastoids normal. DIFFUSION: Negative for acute or sub-acute infarction. ORBITS: No masses. Globes normal. PARANASAL SINUSES: No fluid levels. Mucosa normal. OTHER: No other significant finding. IMPRESSION: Negative for acute or sub-acute infarction. EVIDENCE OF ACUTE STROKE: NO. TECHNICAL DOCUMENTATION: JOB ID: [id number] [employer]- All Rights Reserved
[2017-05-31] MEDS ORDERED: BACLOFEN 20 MG TABLET PO PRN (17:53)
[2017-05-31] MEDS ORDERED: INFLUENZA ADLT QUAD (36MOS+) 2017-18 VAC 0.5 ML SYR IM PRN (17:56)
--- NOTE | 2017-05-31 18:14 | PDOC H&P ---
History of Present Illness Admission Date/PCP: 05/31/17 10:33 DENNYS CLARKE PA-C History of Present Illness: CHRISTEL VELAZCO is a 62 year old male with a history of prior CVA, hypertension , skin cancer presents with 2 days of left facial numbness and left-sided weakness. Patient reports that he was having some left facial drooping and subsequent left-sided weakness which has all now improved. Patient reports that he has been unable to receive his medicines secondary to and financial issues. He does complain of chronic left lower extremity swelling. He is referred to hospital service for TIA. Past Medical History Cardiac Medical History: Reports: Hypertension - hx of in past-no current meds Neurological Medical History: Reports: Ischemic CVA GI Medical History: Reports: Gastroesophageal Reflux Disease Musculoskeltal Medical History: Reports: Arthritis Psychiatric Medical History: Reports: Depression Hematology: Denies: Anemia Past Surgical History Past Surgical History: Reports: Tonsillectomy, Other - Vasectomy, hernia repair Social History Smoking Status: Former Smoker Frequency of Alcohol Use: Social Hx Recreational Drug Use: Yes Drugs: Cocaine Hx Prescription Drug Abuse: No - Advance Directive Resuscitation Status: Do Not Resuscitate Surrogate healthcare decision maker:: Aniya Bailey, friend Family History Family History: CAD, Other - Parkinson's Parental Family History Reviewed: Yes Children Family History Reviewed: Yes Sibling(s) Family History Reviewed.: Yes Medication/Allergy Home Medications: Amitriptyline HCl [Elavil 50 Mg Tablet] 50 mg PO QHS 05/31/17 Aspirin [Ecotrin] 325 mg PO DAILY 05/31/17 Baclofen [Baclofen 20 Mg Tablet] 20 mg PO QIDP PRN 05/31/17 Allergies/Adverse Reactions: [id number]-Lwh Reductase Inhibitor Allergy (Severe, Verified 04/12/17 07:43) Muscle Aches Review of Systems Constitutional: ABSENT: chills, fever(s), headache(s), weight gain, weight loss Eyes: ABSENT: visual disturbances Ears: ABSENT: hearing changes Cardiovascular: ABSENT: chest pain, dyspnea on exertion, edema, orthropnea, palpitations Respiratory: ABSENT: cough, hemoptysis, sputum Gastrointestinal: ABSENT: abdominal pain, constipation, diarrhea, hematemesis, hematochezia, melena, nausea, vomiting Genitourinary: ABSENT: dysuria, hematuria Musculoskeletal: ABSENT: joint swelling Integumentary: ABSENT: rash, wounds Neurological: PRESENT: as per HPI, abnormal gait, focal weakness, paresthesias. ABSENT: abnormal speech, confusion, dizziness, syncope Psychiatric: ABSENT: anxiety, depression, homidical ideation, suicidal ideation Endocrine: ABSENT: cold intolerance, heat intolerance, polydipsia, polyuria Hematologic/Lymphatic: ABSENT: easy bleeding, easy bruising Physical Exam Vital Signs: Temp Pulse Resp BP Pulse Ox 97.9 F 78 12 125/71 100 05/31/17 12:55 05/31/17 12:55 05/31/17 12:55 05/31/17 12:55 05/31/17 12:55 General appearance: PRESENT: no acute distress, well-developed, well-nourished Head exam: PRESENT: atraumatic, normocephalic Eye exam: PRESENT: conjunctiva pink, EOMI, PERRLA. ABSENT: scleral icterus Ear exam: PRESENT: normal external ear exam Mouth exam: PRESENT: moist, tongue midline Neck exam: ABSENT: JVD, lymphadenopathy, thyromegaly, tracheal deviation Respiratory exam: PRESENT: clear to auscultation felicia. ABSENT: rales, rhonchi, wheezes Cardiovascular exam: PRESENT: RRR, +S1, +S2. ABSENT: diastolic murmur, gallop, irregular rhythm, rubs, systolic murmur Pulses: PRESENT: normal dorsalis pedis pul Vascular exam: PRESENT: normal capillary refill GI/Abdominal exam: PRESENT: normal bowel sounds, soft. ABSENT: distended, firm , guarding, mass, Ponce's sign, organolmegaly, rebound, rigid, tenderness Rectal exam: PRESENT: deferred Extremities exam: PRESENT: full ROM, +1 edema - left lower extremity. ABSENT: calf tenderness, clubbing Neurological exam: PRESENT: alert, awake, oriented to person, oriented to place , oriented to time, oriented to situation, other - Cogwheel rigidity bilateral upper extremities. ABSENT: CN II-XII grossly intact - Left cranial nerve V deficit otherwise intact, motor sensory deficit Psychiatric exam: PRESENT: appropriate affect, normal mood. ABSENT: homicidal ideation, suicidal ideation Skin exam: PRESENT: dry, intact, warm. ABSENT: cyanosis, rash Results Laboratory Results: 05/31/17 13:12 Troponin I < 0.012 Impressions: Head MRI 05/31/17 00:00 IMPRESSION: Negative for acute or sub-acute infarction. EVIDENCE OF ACUTE STROKE: NO. Venous Doppler Study 05/31/17 00:00 IMPRESSION: NO EVIDENCE OF DVT OR SVT IN THE LEFT LEG. Chest X-Ray 05/31/17 06:49 IMPRESSION: Unchanged normal for age chest radiograph. 2010 [employer]- All Rights Reserved Head CT 05/31/17 06:49 IMPRESSION: 1. Unchanged chest radiograph. No intracranial hemorrhage or evidence of large subacute brain infarction. Findings discussed with Dr. Choudhary on 05/31/2017 at 0515 hours MST. Carotid Doppler Study 05/31/17 10:35 IMPRESSION: NO HEMODYNAMICALLY SIGNIFICANT STENOSIS. Assessment & Plan - Diagnosis (1) TIA (transient ischemic attack) Qualifiers: Transient cerebral ischemia type: unspecified Qualified Code(s): G45.9 - Transient cerebral ischemic attack, unspecified Is this a current diagnosis for this admission?: Yes Plan: Patient has very minor cranial nerve V deficit, and do not feel that this likely represents TIA or CVA. Will obtain a carotid Doppler. Monitor patient on IMCU for arrhythmia. Continue aspirin and Plavix. Place patient on Claritin and Flonase as I feel this likely represents sinusitis (2) GERD (gastroesophageal reflux disease) Qualifiers: Esophagitis presence: esophagitis presence not specified Qualified Code(s) : K21.9 - Gastro-esophageal reflux disease without esophagitis Is this a current diagnosis for this admission?: Yes (3) History of alcohol abuse Is this a current diagnosis for this admission?: Yes (4) History of cervical fracture Is this a current diagnosis for this admission?: Yes (5) History of cocaine abuse Is this a current diagnosis for this admission?: Yes (6) History of stroke Is this a current diagnosis for this admission?: Yes (7) Hyperlipidemia Qualifiers: Hyperlipidemia type: unspecified Qualified Code(s): E78.5 - Hyperlipidemia , unspecified Is this a current diagnosis for this admission?: Yes Plan: Patient has a history of hyperlipidemia, but reports an allergy to statins. Will not check an FLP at this time secondary to this he has known hyperlipidemia (8) Hypertension Qualifiers: Hypertension type: unspecified Qualified Code(s): I10 - Essential (primary ) hypertension Is this a current diagnosis for this admission?: Yes Plan: Currently well-controlled (9) Parkinsons Is this a current diagnosis for this admission?: Yes Plan: Patient has very minor tremor, cogwheel rigidity and a family history. I feel that this patient likely has underlying Parkinson's disease. Will start patient on Sinemet and see if he improves. - Time Time Spent: 50 to 70 Minutes Medications reviewed and adjusted accordingly: Yes Anticipated discharge: Home Within: within 24 hours, within 48 hours
[2017-05-31] MEDS: ACETAMINOPHEN 325 MG TABLET PO PRN (19:18)
[2017-05-31] MEDS: FLUTICASONE NASAL SPRAY 50 MCG/SPRY 120 SPRAY/16 GM NASL SCH (21:11)
[2017-05-31] MEDS ORDERED: LORATADINE 10 MG TABLET PO SCH (22:00)
[2017-05-31] MEDS ORDERED: AMITRIPTYLINE HCL 50 MG TABLET PO SCH (22:00)
[2017-06-01] MEDS: HEPARIN SOD (PORCINE) 5,000 UNIT/ML 1 ML SYRINGE SUBCUT SCH (05:02)
[2017-06-01] MEDS: CARBIDOPA/LEVODOPA 10-100 MG TABLET PO SCH (05:02)
[2017-06-01] MEDS: ACETAMINOPHEN 325 MG TABLET PO PRN (07:35)
[2017-06-01] MEDS: FLUTICASONE NASAL SPRAY 50 MCG/SPRY 120 SPRAY/16 GM NASL SCH (09:45)
[2017-06-01] MEDS ORDERED: CLOPIDOGREL BISULFATE 75 MG TABLET PO SCH (10:00)
[2017-06-01] MEDS ORDERED: ASPIRIN 325 MG TABLET, ENT COATED PO SCH (10:00)
[2017-06-01] MEDS ORDERED: LISINOPRIL 10 MG TABLET PO SCH (10:00)
[2017-06-01 10:08] VITALS: BP 125/71
--- NOTE | 2017-06-03 19:51 | PDOC DISCHARGE SUMMARY ---
General - Admit/Disc Date/PCP Admission Date/Primary Care Provider: 05/31/17 10:33 DENNYS CLARKE PA-C Discharge Date: 06/03/17 - Discharge Diagnosis (1) Parkinsons Is this a current diagnosis for this admission?: Yes (2) TIA (transient ischemic attack) Is this a current diagnosis for this admission?: Yes (3) GERD (gastroesophageal reflux disease) Is this a current diagnosis for this admission?: Yes (4) History of alcohol abuse Is this a current diagnosis for this admission?: Yes (5) History of cervical fracture Is this a current diagnosis for this admission?: Yes (6) History of cocaine abuse Is this a current diagnosis for this admission?: Yes (7) History of stroke Is this a current diagnosis for this admission?: Yes (8) Hyperlipidemia Is this a current diagnosis for this admission?: Yes (9) Hypertension Is this a current diagnosis for this admission?: Yes - Additional Information Resuscitation Status: Do Not Resuscitate Discharge Diet: Cardiac Discharge Activity: Activity As Tolerated Home Medications: Amitriptyline HCl [Elavil 50 mg Tablet] 50 mg PO QHS #30 tablet 06/01/17 Aspirin [Ecotrin] 325 mg PO DAILY #90 tablet. 06/01/17 Carbidopa/Levodopa [Sinemet 10-100 mg Tablet] 1 tab PO Q8 #90 tablet 06/01/17 Clopidogrel Bisulfate [Plavix 75 mg Tablet] 75 mg PO DAILY #30 tablet 06/01/17 Fluticasone Propionate [Flonase Nasal Chitina 50 Mcg/Chitina 16 gm] 1 spray NASL Q12 #1 bot 06/01/17 Lisinopril 20 mg PO DAILY #30 tablet 06/01/17 Loratadine [Claritin 10 mg Tablet] 10 mg PO QHS #30 tablet 06/01/17 History of Present Illness History of Present Illness: CHRISTEL VELAZCO is a 62 year old male with a history of prior CVA, hypertension , skin cancer presents with 2 days of left facial numbness and left-sided weakness. Patient reports that he was having some left facial drooping and subsequent left-sided weakness which has all now improved. Patient reports that he has been unable to receive his medicines secondary to and financial issues. He does complain of chronic left lower extremity swelling. He is referred to hospital service for TIA. Hospital Course Hospital Course: Place on telemetry which did not reveal any arrhythmia. Patient underwent carotid Doppler which was negative. Patient underwent MRI which was negative for acute CVA. Patient's symptomatology however was consistent with Parkinson's and that he had cogwheel rigidity, a bit of a shuffling gait, and diminished facial expression. Patient was started on Sinemet. He also has a strong family history of Parkinson's. He is advised to follow-up with his primary care physician. Physical Exam Vital Signs: Temp Pulse Resp BP Pulse Ox 97.9 F 87 18 125/71 97 06/01/17 10:05 06/01/17 10:05 06/01/17 10:05 06/01/17 10:05 06/01/17 10:05 Exam: General appearance: PRESENT: no acute distress, well-developed, well-nourished Head exam: PRESENT: atraumatic, normocephalic Eye exam: PRESENT: conjunctiva pink, EOMI, PERRLA. ABSENT: scleral icterus Ear exam: PRESENT: normal external ear exam Mouth exam: PRESENT: moist, tongue midline Neck exam: ABSENT: JVD, lymphadenopathy, thyromegaly, tracheal deviation Respiratory exam: PRESENT: clear to auscultation felicia. ABSENT: rales, rhonchi, wheezes Cardiovascular exam: PRESENT: RRR, +S1, +S2. ABSENT: diastolic murmur, gallop, irregular rhythm, rubs, systolic murmur Pulses: PRESENT: normal dorsalis pedis pul Vascular exam: PRESENT: normal capillary refill GI/Abdominal exam: PRESENT: normal bowel sounds, soft. ABSENT: distended, firm , guarding, mass, Ponce's sign, organolmegaly, rebound, rigid, tenderness Rectal exam: PRESENT: deferred Extremities exam: PRESENT: full ROM, +1 edema - left lower extremity. ABSENT: calf tenderness, clubbing Neurological exam: PRESENT: alert, awake, oriented to person, oriented to place , oriented to time, oriented to situation, other - Cogwheel rigidity bilateral upper extremities. ABSENT: CN II-XII grossly intact - Left cranial nerve V deficit otherwise intact, motor sensory deficit Psychiatric exam: PRESENT: appropriate affect, normal mood. ABSENT: homicidal ideation, suicidal ideation Skin exam: PRESENT: dry, intact, warm. ABSENT: cyanosis, rash Results Laboratory Results: 05/31/17 05/31/1717 13:12 19:37 00:33 Troponin I < 0.012 < 0.012 < 0.012 Impressions: Head MRI 05/31/17 00:00 IMPRESSION: Negative for acute or sub-acute infarction. EVIDENCE OF ACUTE STROKE: NO. Venous Doppler Study 05/31/17 00:00 IMPRESSION: NO EVIDENCE OF DVT OR SVT IN THE LEFT LEG. Chest X-Ray 05/31/17 06:49 IMPRESSION: Unchanged normal for age chest radiograph. 2010 [employer]- All Rights Reserved Head CT 05/31/17 06:49 IMPRESSION: 1. Unchanged chest radiograph. No intracranial hemorrhage or evidence of large subacute brain infarction. Findings discussed with Dr. Choudhary on 05/31/2017 at 0515 hours MST. Carotid Doppler Study 05/31/17 10:35 IMPRESSION: NO HEMODYNAMICALLY SIGNIFICANT STENOSIS. Qualifiers PATEINT BEING DISCHARGED WITH ANY OF THE FOLLOWING DIAGNOSIS?: No Plan Time Spent: Less than 30 Minutes
== END 2017-06-01 11:02 | disposition home or self-care (01) ==
LOC: ER 06:43 → EH 10:33 → UNDOADMOB 11:27 → 3W 13:01
PROVIDERS: ADMIT Family Medicine; ATTEND Family Medicine
PROC: 3E0234Z Introduction of Serum, Toxoid and Vaccine into Muscle, Percutaneous Approach (ICD-10-PCS; principal; 2017-06-01)
DX: G20 Parkinson's disease (principal); G45.9 Transient cerebral ischemic attack, unspecified; K21.9 Gastro-esophageal reflux disease without esophagitis; F10.11 Alcohol abuse, in remission; F14.11 Cocaine abuse, in remission; Z86.73 Personal history of transient ischemic attack (TIA), and cerebral infarction without residual deficits; E78.5 Hyperlipidemia, unspecified; I10 Essential (primary) hypertension; Z79.899 Other long term (current) drug therapy; Z79.82 Long term (current) use of aspirin; Z79.02 Long term (current) use of antithrombotics/antiplatelets; Z82.0 Family history of epilepsy and other diseases of the nervous system; M79.89 Other specified soft tissue disorders; Z85.828 Personal history of other malignant neoplasm of skin; Z87.891 Personal history of nicotine dependence; R29.818 Other symptoms and signs involving the nervous system; Z66 Do not resuscitate; Z59.9 Problem related to housing and economic circumstances, unspecified; Z59.0 Homelessness; Z88.8 Allergy status to other drugs, medicaments and biological substances; Z82.49 Family history of ischemic heart disease and other diseases of the circulatory system; Z90.49 Acquired absence of other specified parts of digestive tract
CPT/HCPCS: 93005; 99285; 36415; 82553; 82962; 82550; 85025; 85610; 85730; 80053; 81001; 84484 ×2; 80307; 93971; 93880; 70551; 71010; 70450; 90686; 93010; 97110; 97162; 97166; J3490 ×5; J1644 ×2

== ENCOUNTER 2018-01-08 06:02 | Day surgery (SDC) | payer MEDICARE, BC ==
[2017-12-05 13:11] LABS: HEMATOCRIT 48.1 % (37.9-51.0); HEMOGLOBIN 16.2 g/dL (13.5-17.0); MEAN CORPUSCULAR HEMOGLOBIN 31.6 pg (27.0-33.4); MEAN CORPUSCULAR HGB CONC 33.7 g/dL (32.0-36.0); MEAN CORPUSCULAR VOLUME 94 fl (80-97); PLATELET COUNT 294 10^3/uL (150-450); RED BLOOD COUNT 5.12 10^6/uL (4.35-5.55); RED CELL DISTRIBUTION WIDTH 13.8 % (11.5-14.0)
[2017-12-05 13:22] LABS: INTERNATIONAL RATION (INR) 0.98; PROTHROMBIN TIME 13.5 SEC (11.4-15.4)
[2017-12-05 13:23] LABS: PARTIAL THROMBOPLASTIN TIME 37.7 SEC (23.5-35.8)
[2017-12-05 13:34] LABS: ANION GAP 13 (5-19); BLOOD UREA NITROGEN 17 mg/dL (7-20); CALCIUM 9.9 mg/dL (8.4-10.2); CARBON DIOXIDE 32 mmol/L (22-30); CHLORIDE 95 mmol/L (98-107); GLUCOSE 88 mg/dL (75-110); POTASSIUM 4.9 mmol/L (3.6-5.0); SODIUM 140.3 mmol/L (137-145)
--- NOTE | 2017-12-05 14:03 | EKG REPORT ---
SEVERITY:- OTHERWISE NORMAL ECG - SINUS RHYTHM BORDERLINE LEFT AXIS DEVIATION : Confirmed by: Feliciano Mansfield MD 05-Dec-2017 14:03:30
[~2018-01-08 06:02] MED LIST: CEFAZOLIN 1 GM/D5W RTU 1 GM/50 ML RTUPB IV PRN; CEFAZOLIN SODIUM 2 GM in DEXTROSE 5%-WATER 100 ML IV SCH; LACTATED RINGERS 1000 ML IV PRN; LIDOCAINE 0.5% INJ-PF (5 MG/ML) 50 ML SDV SUBCUT PRN; LIDOCAINE 1%/EPINEPHRINE INJ 20 ML VIAL ONE; POVIDONE-IODINE 5% OPH PREP SOLN 30 ML ONE; SODIUM BICARBONATE 8.4% INJ 50 MEQ/50 ML DISP.SYRIN ONE
[2018-01-08 07:03] LABS: INTERNATIONAL RATION (INR) 0.99; PROTHROMBIN TIME 13.6 SEC (11.4-15.4)
[2018-01-08 07:04] LABS: PARTIAL THROMBOPLASTIN TIME 33.2 SEC (23.5-35.8)
[2018-01-08] MEDS ORDERED: MIDAZOLAM 2 MG/2 ML INJ ONE (07:24)
[2018-01-08] MEDS ORDERED: DEXMEDETOMIDINE INJ 80 MCG/20 ML VIAL IV ONE (07:25)
[2018-01-08] MEDS ORDERED: PROPOFOL INJ 200 MG/20 ML VIAL IV ONE (07:25)
[2018-01-08] MEDS ORDERED: ONDANSETRON HCL INJ/PF 4 MG/2 ML SDV ONE (07:25)
[2018-01-08] MEDS ORDERED: FENTANYL CITRATE INJ/PF 100 MCG/2 ML AMPUL IV PRN ×2 (08:52)
[2018-01-08] MEDS ORDERED: MEPERIDINE HCL/PF INJ 25 MG/1 ML DISP.SYRIN IV PRN (08:52)
[2018-01-08] MEDS ORDERED: PROMETHAZINE HCL INJ 25 MG/1 ML VIAL IV PRN (08:52)
[2018-01-08] MEDS ORDERED: DIPHENHYDRAMINE HCL 50 MG/ML VIAL IV PRN (08:52)
--- NOTE | 2018-01-08 10:35 | Operative Report ---
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 Patient was brought into the operating room and placed on the operating room table in supine position. Patient was then prepped with a Betadine scrub and Betadine solution and draped in a sterile and aseptic manner. The area was then marked. 12 O'clock was marked towards the apex of the ear 3 O'clock was marked towards the cheek 6:00 was marked towards the earlobe 9:00 was marked towards the posterior ear The area was then anesthetized with 1% lidocaine with epinephrine and bicarbonate for its anesthetic and hemostatic effects. The area was then excised and marked at 12:00. The specimen was sent for frozen section. The results came back that the deep and lateral margins were free. We had considered a primary closure but this would go against the natural relaxed skin tension lines. A primary closure would be too tight and would have increased chance of dehiscence. This will leave more of a scar so we decided to use a postauricular sliding advancement flap reconstruction which would camouflage the scar better and take tension off of the closure so that would be less chances of complications. We will consider several different options one of them being a graft however though because this was a rather deep penetrating lesion it was difficult to clear the deep margin and still leave perichondrium. We decided that the cartilage should be taken and this was sent as a second frozen section which would be later processed as a permanent section because the pathologist felt that with what we had sent her on the margins were clear. The defect that we had was now exposing the posterior ear skin. The other problem was that this posterior skin already had a cancer that was removed with a full-thickness graft. If we were grafting we would graft and anterior graft onto an already posterior graft for which she was some scarring in the region and it was felt that this would be rather risky for the grafts survivability. Because the size of the defect it was felt that if a wedge resection was performed or helical rim advancement flap was performed there would be a significant shortening of the vertical height and loss of the ear lobule to reconstruct this defect and the defect also had extended onto the scapha a of the ear. This is why we decided to do a posterior auricular sliding advancement flap to bring back the posterior tissue and roll it up to the front of the ear for the reconstruction to maintain vertical height and the only loss would be some of the aesthetics of the helix and antihelix. Then we went ahead and outlined the flap and anesthetized it. We then incised the flap and developed a flap maintaining the subdermal plexus. Then we undermined 360 to allow for plate like scarring and minimize trap door deformity. Throughout the case hemostasis was achieved with the bipolar. We then sutured the flap into its new position using 5-0 Vicryl for the subcutaneous and deep dermis. Skin was closed with a interrupted horizontal mattress and simple stitch using 5 -0 Prolene with knots being tied on the outside. We then applied tincture benzoin and Steri-Strips followed by a light pressure dressing. Patient was then reversed from anesthesia and taken to the [facility] for recovery. The patient tolerated well. There were no complications. Lesion size was 2.2 x 1.5 was the approximate size of the lesion itself but the defect that needed reconstruction was 4.5 x 2.2 cm please see pathology for actual size. Portions of this note may be dictated using [employer] voice recognition software. Occasional variations and spelling and vocabulary could be possible and are unintentional. Additionally, there is a chance that some errors may not be caught or corrected. Please notify the author of any discrepancies noted or if any statements are unclear. Subjective: No complaints Objective: Vital signs stable afebrile No bleeding Dressing intact Assessment and plan: Doing well. Elevate the operative site. Resume medications. Take antibiotics for 1 day Follow-up Full instructions were given to the patient and family and they understand Portions of this note may be dictated using [employer] voice recognition software. Occasional variations and spelling and vocabulary could be possible and are unintentional. Additionally, there is a chance that some errors may not be caught or corrected. Please notify the offer of any discrepancies noted or if any statements are unclear.
--- NOTE | 2018-01-08 10:37 | Discharge Summary ---
Discharge Summary (SDC) - Discharge Final Diagnosis: Basal squamous cell carcinoma of the ear Date of Surgery: 01/08/18 Condition: Good Treatment or Instructions: Leave the top dressing on for 2 days, then removed. Leave the steri-strip tapes on for 5 days, then removal. Then cleaning wound with peroxide and apply Neosporin/bacitracin 3 times per day. Antibiotics for 1 day, then discontinue. Elevate operative area to decrease swelling. Do not strain, or lift heavy objects. Call for excessive bleeding, increased temperature of 101, uncontrolled pain, or excessive nausea or vomiting. You may reach Dr. Huggins through his office at [phone]. In the event of an emergency after hours, then contact Dr. Huggins through [facility]. Return to the office for a postop check on . The time will be scheduled by the nursing staff of [facility] prior to discharge. Please give the patient a copy of their labs and EKG so they can bring this to their PMD. Thank you Portions of this note may be dictated using [employer] voice recognition software. Occasional variations and spelling and vocabulary could be possible and are unintentional. Additionally, there is a chance that some errors may not be caught or corrected. Please notify the offer of any discrepancies noted or if any statements are unclear. Referrals: DENNYS CLARKE PA-C [Primary Care Provider] - Discharge Diet: As Tolerated Report the Following to Your Physician Immediately: Unusual Bleeding - Keep head elevated. Do not sleep on the ear. Tomorrow resume any medications you have stopped for the surgery. No bending or straining
[2018-01-08 12:13] VITALS: BP 137/90
== END 2018-01-08 12:10 | disposition home or self-care (01) ==
LOC: OROUT 06:02
PROVIDERS: ATTEND Plastic Surgery
DX: C44.222 Squamous cell carcinoma of skin of right ear and external auricular canal (principal); I10 Essential (primary) hypertension; M19.90 Unspecified osteoarthritis, unspecified site; Z88.8 Allergy status to other drugs, medicaments and biological substances; Z79.899 Other long term (current) drug therapy; Z79.82 Long term (current) use of aspirin; I69.354 Hemiplegia and hemiparesis following cerebral infarction affecting left non-dominant side; Z79.01 Long term (current) use of anticoagulants
CPT/HCPCS: 93005; 36415 ×2; 85027; 85610 ×2; 85730 ×2; 80048; 88305 ×2; 88331 ×2; 93010; 14060; J2250; J0690; J3490 ×4; J2405; J2704; 120

== ENCOUNTER 2018-03-05 10:25 | Day surgery (SDC) | payer MEDICARE, BC ==
[~2018-03-05 10:25] MED LIST changes: -CEFAZOLIN SODIUM 2 GM in DEXTROSE 5%-WATER 100 ML IV SCH; -LACTATED RINGERS 1000 ML IV PRN; -LIDOCAINE 0.5% INJ-PF (5 MG/ML) 50 ML SDV SUBCUT PRN; -POVIDONE-IODINE 5% OPH PREP SOLN 30 ML ONE
[2018-03-05 11:13] LABS: HEMATOCRIT 40.4 % (37.9-51.0); HEMOGLOBIN 13.9 g/dL (13.5-17.0); MEAN CORPUSCULAR HEMOGLOBIN 31.3 pg (27.0-33.4); MEAN CORPUSCULAR HGB CONC 34.4 g/dL (32.0-36.0); MEAN CORPUSCULAR VOLUME 91 fl (80-97); PLATELET COUNT 318 10^3/uL (150-450); RED BLOOD COUNT 4.44 10^6/uL (4.35-5.55); RED CELL DISTRIBUTION WIDTH 13.2 % (11.5-14.0); WHITE BLOOD COUNT 5.4 10^3/uL (4.0-10.5)
[2018-03-05 11:23] LABS: INTERNATIONAL RATION (INR) 1.05; PROTHROMBIN TIME 14.2 SEC (11.4-15.4)
[2018-03-05 11:24] LABS: PARTIAL THROMBOPLASTIN TIME 36.8 SEC (23.5-35.8)
[2018-03-05 11:36] LABS: ANION GAP 7 (5-19); BLOOD UREA NITROGEN 13 mg/dL (7-20); CALCIUM 8.9 mg/dL (8.4-10.2); CARBON DIOXIDE 30 mmol/L (22-30); CHLORIDE 100 mmol/L (98-107); GLUCOSE 89 mg/dL (75-110); POTASSIUM 4.4 mmol/L (3.6-5.0)
[2018-03-05] MEDS ORDERED: FENTANYL CITRATE INJ/PF 100 MCG/2 ML AMPUL ONE (12:42)
[2018-03-05] MEDS ORDERED: MIDAZOLAM 2 MG/2 ML INJ ONE (12:43)
[2018-03-05] MEDS ORDERED: PROPOFOL INJ 200 MG/20 ML VIAL IV ONE (12:43)
[2018-03-05] MEDS ORDERED: DIPHENHYDRAMINE HCL 50 MG/ML VIAL IV PRN (13:55)
[2018-03-05] MEDS ORDERED: FENTANYL CITRATE INJ/PF 100 MCG/2 ML AMPUL IV PRN ×3 (13:55)
[2018-03-05] MEDS ORDERED: PROMETHAZINE HCL INJ 25 MG/1 ML VIAL IV PRN (13:55)
[2018-03-05] MEDS ORDERED: MORPHINE SULFATE 10 MG/ML INJ IV PRN (13:55)
[2018-03-05] MEDS ORDERED: MEPERIDINE HCL/PF INJ 25 MG/1 ML DISP.SYRIN IV PRN (13:55)
--- NOTE | 2018-03-05 14:41 | Operative Report ---
Operative Report DATE OF SURGERY: 03/05/18 PREOPERATIVE DIAGNOSIS: Suspected basal cell carcinoma of the right pre-tibia POSTOPERATIVE DIAGNOSIS: Basaloid carcinoma of the right pretibial OPERATION: Excision of basaloid carcinoma of the right pre-tibia with frozen section margin control and reconstruction with a bilateral sliding advancement flap SURGEON: CHRISTEL HERRERA ANESTHESIA: LMAC TISSUE REMOVED OR ALTERED: Basal cell carcinoma COMPLICATIONS: None ESTIMATED BLOOD LOSS: Minimal PROCEDURE: Patient seen and was marked prior to being brought into the operating room. Patient was brought into the operating room and placed on the operating room table in a [supine] position. Patient was then prepped with a Betadine scrub and Betadine solution and draped in a sterile and aseptic manner. The area was then marked. 12 O'clock was marked towards the knee 3 O'clock was marked towards the posterior calf 6:00 was marked towards the foot 9:00 was marked towards the tibia The area was then anesthetized with 1% lidocaine with epinephrine and bicarbonate for its anesthetic and hemostatic effects. The area was then excised and marked at 12:00. The specimen was sent for frozen section. The results came back that the deep and lateral margins were free. We had considered a primary closure but this would go against the natural relaxed skin tension lines. A primary closure would be too tight and would have increased chance of dehiscence. This will leave more of a scar so we decided to use a bilateral sliding advancement flap reconstruction which would camouflage the scar better and take tension off of the closure so that would be less chances of complications. This was her best choice. It was very tight we tried different directions for considering the flap and this was our best choice of flaps that would minimize tension on the closure and give us the best chance of not having dehiscence secondary to the amount of edema in his leg. This edema is a new finding which was not there when we preop him and he was seen by his primary care doctor and was given a "water pill" to manage the swelling. Then we went ahead and outlined the flap and anesthetized it. We then incised the flap and developed a flap maintaining the subdermal plexus. Then we undermined 360 to allow for plate like scarring and minimize trap door deformity. Throughout the case hemostasis was achieved with the bipolar. There were several veins that were exposed during the resection and these were tied off with 3-0 Vicryl ties. We then sutured the flap into its new position using 3-0 Vicryl for the subcutaneous and deep dermis. Skin was closed with a interrupted, simple, horizontal mattress and vertical mattress sutures using 2 .0 and 3.0 rolling with knots being tied on the outside. We then applied tincture benzoin and Steri-Strips followed by a light pressure dressing. Patient was then reversed from anesthesia and taken to the [facility] for recovery. The patient tolerated well. There were no complications. Lesion size was approximately 2 and half centimeters by 2.4 cm please see pathology for actual size. Portions of this note may be dictated using [employer] voice recognition software. Occasional variations and spelling and vocabulary could be possible and are unintentional. Additionally, there is a chance that some errors may not be caught or corrected. Please notify the author of any discrepancies noted or if any statements are unclear. Subjective: No complaints Objective: Vital signs stable afebrile No bleeding Dressing intact Assessment and plan: Doing well. Elevate the operative site. Resume medications. Take antibiotics for 1 day Follow-up Full instructions were given to the patient and family and they understand Portions of this note may be dictated using [employer] voice recognition software. Occasional variations and spelling and vocabulary could be possible and are unintentional. Additionally, there is a chance that some errors may not be caught or corrected. Please notify the offer of any discrepancies noted or if any statements are unclear.
--- NOTE | 2018-03-05 14:43 | Discharge Summary ---
Discharge Summary (SDC) - Discharge Final Diagnosis: Basal cell carcinoma of the right pre-tibia Date of Surgery: 03/05/18 Condition: Good Treatment or Instructions: Leave the top dressing on for 2 days, then removed. Leave the steri-strip tapes on for 5 days, then removal. Then cleaning wound with peroxide and apply Neosporin/bacitracin 3 times per day. Antibiotics for 1 day, then discontinue. Elevate operative area to decrease swelling. Do not strain, or lift heavy objects. Call for excessive bleeding, increased temperature of 101, uncontrolled pain, or excessive nausea or vomiting. You may reach Dr. Huggins through his office at [phone]. In the event of an emergency after hours, then contact Dr. Huggins through [facility]. Return to the office for a postop check on . The time will be scheduled by the nursing staff of [facility] prior to discharge. Please give the patient a copy of their labs and EKG so they can bring this to their PMD. Thank you Portions of this note may be dictated using [employer] voice recognition software. Occasional variations and spelling and vocabulary could be possible and are unintentional. Additionally, there is a chance that some errors may not be caught or corrected. Please notify the offer of any discrepancies noted or if any statements are unclear. Referrals: DENNYS CLARKE PA-C [Primary Care Provider] - Discharge Diet: As Tolerated Report the Following to Your Physician Immediately: Unusual Bleeding - Keep leg elevated. Keep the swelling down. Do not stand for extended periods of time
[2018-03-05 16:26] VITALS: BP 128/79
== END 2018-03-05 16:10 | disposition home or self-care (01) ==
LOC: OROUT 10:25
PROVIDERS: ATTEND Plastic Surgery
PROC: 0HBKXZZ Excision of Right Lower Leg Skin, External Approach (ICD-10-PCS; principal; 2018-03-05 12:30)
DX: C44.712 Basal cell carcinoma of skin of right lower limb, including hip (principal); Z79.01 Long term (current) use of anticoagulants; I10 Essential (primary) hypertension
CPT/HCPCS: 36415; 85027; 85610; 85730; 80048; 88305 ×2; 88331 ×2; 14020; J2250; J0690; J3490 ×2; J2704; 400; J3010

== ENCOUNTER 2019-01-07 15:42 | Emergency (ER) | payer MEDICARE ==
--- NOTE | 2019-01-07 16:32 | ER Document Report ---
ED Medical Screen (RME) - General Chief Complaint: Flank Pain Stated Complaint: FLANK PAIN Time Seen by Provider: 01/07/19 16:31 Primary Care Provider: COLIN DAVE MD [Primary Care Provider] - Follow up as needed Mode of Arrival: Ambulatory Information source: Patient Notes: 63-year-old male presents to ED for stabbing pain in the left kidney. He states his urine is very dark. He has a history of kidney stones, TIAs x7 last was several years ago cholesterol chronic back pain. He states he has had skin cancers removed vasectomy and a right inguinal hernia repair. He states he does not smoke cigarettes he does drink weekly uses meth occasionally he is disabled due to back pain and lives with his son. He is alert oriented respirations regular and unlabored speaking in full sentences at this time. I have greeted and performed a rapid initial assessment of this patient. A comprehensive ED assessment and evaluation of the patient, analysis of test results and completion of medical decision making process will be conducted by an additional ED providers. Dictation of this chart was performed using voice recognition software; therefore, there may be some unintended grammatical errors. TRAVEL OUTSIDE OF THE [place] IN LAST 30 DAYS: No - Related Data Allergies/Adverse Reactions: No Known Allergies Allergy (Unverified 12/05/17 11:43) Past Medical History - Past Medical History Cardiac Medical History: Reports: Hx Hypertension - hx of in past-no current meds Denies: Hx Coronary Artery Disease, Hx Heart Attack Pulmonary Medical History: Reports: Hx Pneumonia - 2004 Denies: Hx Asthma, Hx Bronchitis, Hx COPD Neurological Medical History: Reports: Hx Cerebrovascular Accident. Denies: Hx Seizures Renal/ Medical History: Denies: Hx Peritoneal Dialysis GI Medical History: Reports: Hx Gastroesophageal Reflux Disease Musculoskeltal Medical History: Reports Hx Arthritis Psychiatric Medical History: Reports: Hx Depression Past Surgical History: Reports: Hx Appendectomy - hernia, Hx Tonsillectomy, Other - Vasectomy, hernia repair - Immunizations Hx Diphtheria, Pertussis, Tetanus Vaccination: Yes History of Influenza Vaccine for 05/2017 - 10/2017 Season: Yes Influenza Administration Date for 05/2017 - 10/2017 Season: 05/27/17 Physical Exam - Vital signs Vitals: Temp Pulse Resp BP Pulse Ox 97.8 F 84 16 119/78 100 01/07/19 16:01 01/07/19 16:01 01/07/19 16:01 01/07/19 16:01 01/07/19 16:01 Course - Vital Signs Vital signs: Temp Pulse Resp BP Pulse Ox 97.8 F 84 16 119/78 100 01/07/19 16:01 01/07/19 16:01 01/07/19 16:01 01/07/19 16:01 01/07/19 16:01 Doctor's Discharge - Discharge Referrals: COILN DAVE MD [Primary Care Provider] - Follow up as needed
[2019-01-07] MEDS ORDERED: KETOROLAC TROMETHAMINE 60 MG/2 ML SDV IM ONE (16:33)
[2019-01-07 16:55] LABS: APPEARANCE,URINE SLIGHTLY-CLOUDY; BILIRUBIN,URINE NEGATIVE (NEGATIVE); COLOR,URINE YELLOW; GLUCOSE, URINE NEGATIVE (NEGATIVE); KETONES,URINE TRACE mg/dL (NEGATIVE); LEUKOCYTE ESTERASE,URINE NEGATIVE (NEGATIVE); NITRITE,URINE NEGATIVE (NEGATIVE); PROTEIN,URINE NEGATIVE (NEGATIVE); URINE SPECIFIC GRAVITY 1.019
--- NOTE | 2019-01-07 17:12 | RADIOLOGY REPORT (SQ) ---
EXAM DESCRIPTION: CT ABD/PELVIS NO ORAL OR IV COMPLETED DATE/TIME: 01/07/2019 4:58 pm REASON FOR STUDY: left flank pain COMPARISON: None. TECHNIQUE: CT scan of the abdomen and pelvis performed without intravenous or oral contrast. Images reviewed with lung, soft tissue, and bone windows. Reconstructed coronal and sagittal MPR images revi ewed. All images stored on PACS. All CT scanners at this facility use dose modulation, iterative reconstruction, and/or weight based d osing when appropriate to reduce radiation dose to as low as reasonably achievable (ALARA). [facility]: Dose Right [facility]: CareDose [facility]: Dose Right [facility]: Teradose 4D [facility]: Smart [employer] RADIATION DOSE: CT Rad equipment meets quality standard of care and radiation dose reduction techniq ues were employed. CTDIvol: 6.0 mGy. DLP: 302 mGy-cm.mGy. LIMITATIONS: None. FINDINGS: LOWER CHEST: No significant findings. No nodules or infiltrates. NON-CONTRASTED LIVER, SPLEEN, ADRENALS: Evaluation limited by lack of IV contrast. No identified sign ificant masses. PANCREAS: No masses. No peripancreatic inflammatory changes. GALLBLADDER: No identified stones by CT criteria. No inflammatory changes to suggest cholecystitis. RIGHT KIDNEY AND URETER: No suspicious masses. Assessment limited by lack of IV contrast. No signif icant calcifications. No hydronephrosis or hydroureter. LEFT KIDNEY AND URETER: No suspicious masses. Assessment limited by lack of IV contrast. No signifi cant calcifications. No hydronephrosis or hydroureter. AORTA AND RETROPERITONEUM: No aneurysm. No retroperitoneal masses are adenopathy. 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 Thi s measures 1.4 cm in greatest diameter. BOWEL AND PERITONEAL CAVITY: No obvious masses or inflammatory changes. No free fluid. APPENDIX: Not visualized. PELVIS, BLADDER, AND ABDOMINAL WALL:No abnormal masses. No free fluid. Bladder normal. BONES: No significant findings. OTHER: No other significant finding. IMPRESSION: NO SIGNIFICANT OR ACUTE PROCESS IN THE ABDOMEN OR PELVIS. COMMENT: Quality ID # [id number]: Final reports with documentation of one or more dose reduction techniques (e.g., Automated exposure control, adjustment of the mA and/or kV according to patient size, use of iterative reconstruction technique) TECHNICAL DOCUMENTATION: JOB ID: [id number] [employer]- All Rights Reserved Reading location - IP/workstation name: [email or web address]
[2019-01-07 18:16] LABS: ABSOLUTE EOSINOPHILS # (AUTO) 0.3 10^3/uL (0.0-0.6); ABSOLUTE MONOCYTES (AUTO) 0.8 10^3/uL (0.1-1.4); ABSOLUTE NEUT (AUTO) 5.7 10^3/uL (1.7-8.2); BASOPHILS % (AUTO) 0.6 % (0-2); EOSINOPHILS % (AUTO) 3.4 % (0-6); HEMATOCRIT 45.7 % (37.9-51.0); HEMOGLOBIN 15.4 g/dL (13.5-17.0); MEAN CORPUSCULAR HEMOGLOBIN 30.8 pg (27.0-33.4); MEAN CORPUSCULAR HGB CONC 33.7 g/dL (32.0-36.0); MEAN CORPUSCULAR VOLUME 91 fl (80-97); MONOCYTES % (AUTO) 9.7 % (3-13); PLATELET COUNT 243 10^3/uL (150-450); RED BLOOD COUNT 5.01 10^6/uL (4.35-5.55); RED CELL DISTRIBUTION WIDTH 13.8 % (11.5-14.0); SEGMENTED NEUTROPHILS % (AUTO) 73.3 % (42-78); TOTAL CELLS COUNTED % (AUTO) 100 %; WHITE BLOOD COUNT 7.8 10^3/uL (4.0-10.5)
[2019-01-07 18:41] LABS: ALANINE AMINOTRANSFERASE 21 U/L (21-72); ALBUMIN 4.1 g/dL (3.5-5.0); ALKALINE PHOSPHATASE 67 U/L (38-126); ANION GAP 8 (5-19); ASPARTATE AMINO TRANSFERASE 16 U/L (17-59); BILIRUBIN,DIRECT 0.2 mg/dL (0.0-0.4); BILIRUBIN,TOTAL 0.4 mg/dL (0.2-1.3); BLOOD UREA NITROGEN 20 mg/dL (7-20); CALCIUM 9.7 mg/dL (8.4-10.2); CARBON DIOXIDE 31 mmol/L (22-30); CHLORIDE 100 mmol/L (98-107); GLUCOSE 99 mg/dL (75-110); SODIUM 138.5 mmol/L (137-145); TOTAL PROTEIN 7.2 g/dL (6.3-8.2)
--- NOTE | 2019-01-07 21:20 | ER Document Report ---
ED General - General Chief Complaint: Flank Pain Stated Complaint: FLANK PAIN Time Seen by Provider: 01/07/19 16:31 Primary Care Provider: COLIN DAVE MD [ACTIVE STAFF] - Follow up as needed Mode of Arrival: Ambulatory Information source: Patient Notes: 63-year-old male with previous history of kidney stones, CVA presents with left flank pain that started 2 days prior to arrival. Patient describes the pain as stabbing, constant and worse with movement. Patient does state that he pulled a heavy object across the floor prior to the onset of pain. Patient denies any fever, chills, nausea, vomiting, dysuria, hematuria. Patient did receive Toradol prior to my exam and reports improvement of pain. TRAVEL OUTSIDE OF THE [place] IN LAST 30 DAYS: No - HPI Onset: Just prior to arrival Onset/Duration: Sudden, Intermittent Quality of pain: Stabbing Severity: Mild Pain Level: 1 Associated symptoms: denies: Chest pain, Nausea, Vomiting, Shortness of breath Exacerbated by: Movement Relieved by: Remaining still Similar symptoms previously: Yes Recently seen / treated by doctor: No - Related Data Allergies/Adverse Reactions: No Known Allergies Allergy (Unverified 12/05/17 11:43) Past Medical History - General Information source: Patient - Social History Smoking Status: Never Smoker Frequency of alcohol use: Occasional Drug Abuse: Methamphetamine Lives with: Family Family History: CAD, Other - Parkinson's Patient has suicidal ideation: No Patient has homicidal ideation: No - Past Medical History Cardiac Medical History: Reports: Hx Hypercholesterolemia, Hx Hypertension - hx of in past-no current meds Denies: Hx Coronary Artery Disease, Hx Heart Attack Pulmonary Medical History: Reports: Hx Pneumonia - 2004 Denies: Hx Asthma, Hx Bronchitis, Hx COPD Neurological Medical History: Reports: Hx Cerebrovascular Accident. Denies: Hx Seizures Renal/ Medical History: Reports: Hx Kidney Stones. Denies: Hx Peritoneal Dialysis GI Medical History: Reports: Hx Gastroesophageal Reflux Disease Musculoskeletal Medical History: Reports Hx Arthritis Psychiatric Medical History: Reports: Hx Depression Past Surgical History: Reports: Hx Abdominal Surgery - hernia repair, Hx Appendectomy - hernia, Hx Genitourinary Surgery - vasectomy, Hx Tonsillectomy, Other - Vasectomy, hernia repair - Immunizations Hx Diphtheria, Pertussis, Tetanus Vaccination: Yes Review of Systems - Review of Systems Notes: REVIEW OF SYSTEMS: CONSTITUTIONAL : Denies fever, chills, or sweats. Denies recent illness. Denies weight loss, recent hospitalizations. EENT: Denies visual changes, eye pain. Denies sore throat, oral lesions, difficulty swallowing. CARDIOVASCULAR: Denies chest pain. Denies palpitations. Denies lower extremity edema. RESPIRATORY: Denies cough. Denies shortness of breath, wheezing. GASTROINTESTINAL: Denies abdominal pain or distention. Denies nausea, vomiting, or diarrhea. Denies blood in vomitus, stools, or per rectum. Denies black, tarry stools. Denies constipation. GENITOURINARY: Denies difficulty urinating, painful urination, frequency, blood in urine, testicular pain or penile discharge. MUSCULOSKELETAL: Denies neck pain or stiffness. Denies joint pain or swelling. SKIN: Denies rash, lesions or sores. HEMATOLOGIC : Denies easy bruising or bleeding. LYMPHATIC: Denies swollen glands. NEUROLOGICAL: Denies confusion or altered mental status. Denies loss of consciousness. Denies dizziness or lightheadedness. Denies headache. Denies weakness or paralysis. Denies problems difficulty with ambulation, slurred speech. Denies sensory loss, numbness, or tingling. Denies seizures. PSYCHIATRIC: Denies anxiety or stress. Denies depression, suicidal ideation, or Physical Exam - Vital signs Vitals: Temp Pulse Resp BP Pulse Ox 97.8 F 84 16 119/78 100 01/07/19 16:01 01/07/19 16:01 01/07/19 16:01 01/07/19 16:01 01/07/19 16:01 - Notes Notes: PHYSICAL EXAMINATION: GENERAL: Well-appearing, well-nourished and in no acute distress. HEAD: Atraumatic, normocephalic. EYES: Pupils equal round and reactive to light, extraocular movements intact, sclera anicteric, conjunctiva are normal. ENT: Nares patent, oropharynx clear without exudates. Moist mucous membranes. NECK: Normal range of motion, supple without lymphadenopathy LUNGS: Breath sounds clear to auscultation bilaterally and equal. No wheezes rales or rhonchi. HEART: Regular rate and rhythm without murmurs ABDOMEN: Soft, nontender, nondistended abdomen. No guarding, no rebound. No masses appreciated. No CVA tenderness Musculoskeletal: Normal range of motion, no pitting or edema. No cyanosis. Te nderness with palpation to the left paraspinal musculature of the lumbar spine. NEUROLOGICAL: Cranial nerves grossly intact. Normal speech, normal gait. Normal sensory, motor exams PSYCH: Normal mood, normal affect. SKIN: Warm, Dry, normal turgor, no rashes or lesions noted. Course - Re-evaluation Re-evalutation: 01/07/19 21:17 Laboratory 01/07/19 01/07/19 01/07/19 16:35 18:03 18:03 WBC 7.8 RBC 5.01 Hgb 15.4 Hct 45.7 MCV 91 MCH 30.8 MCHC 33.7 RDW 13.8 Plt Count 243 Seg Neutrophils % 73.3 Lymphocytes % 13.0 Monocytes % 9.7 Eosinophils % 3.4 Basophils % 0.6 Absolute Neutrophils 5.7 Absolute Lymphocytes 1.0 Absolute Monocytes 0.8 Absolute Eosinophils 0.3 Absolute Basophils 0.0 Sodium 138.5 Potassium 5.0 Chloride 100 Carbon Dioxide 31 H Anion Gap 8 BUN 20 Creatinine 1.24 Est GFR ( Amer) > 60 Est GFR (Non-Af Amer) 59 L Glucose 99 Calcium 9.7 Total Bilirubin 0.4 Direct Bilirubin 0.2 Neonat Total Bilirubin Not Reportable Neonat Direct Bilirubin Not Reportable Neonat Indirect Bili Not Reportable AST 16 L ALT 21 Alkaline Phosphatase 67 Total Protein 7.2 Albumin 4.1 Urine Color YELLOW Urine Appearance SLIGHTLY-CLOUDY Urine pH 6.0 Ur Specific [place] 1.019 Urine Protein NEGATIVE Urine Glucose (UA) NEGATIVE Urine Ketones TRACE H Urine Blood NEGATIVE Urine Nitrite NEGATIVE Urine Bilirubin NEGATIVE Urine Urobilinogen 2.0 H Ur Leukocyte Esterase NEGATIVE Urine WBC (Auto) 2 Urine RBC (Auto) 1 Squamous Epi Cells Auto <1 Urine Mucus (Auto) MANY Urine Ascorbic Acid NEGATIVE Abdomen/Pelvis CT 01/07/19 16:32 IMPRESSION: NO SIGNIFICANT OR ACUTE PROCESS IN THE ABDOMEN OR PELVIS. Temp Pulse Resp BP Pulse Ox 97.8 F 84 16 119/78 100 01/07/19 16:01 01/07/19 16:01 01/07/19 16:01 01/07/19 16:01 01/07/19 16:01 63-year-old male presents with left lower back pain that started 2 days prior to arrival after pulling a heavy object across the floor. Vital signs reviewed and within normal limits. Patient does not appear toxic or dehydrated. He is in no acute distress. CBC, CMP, urinalysis pelvis are unremarkable. Patient did receive Toradol prior to my exam and reports improvement of pain. Patient will be discharged home with Toradol. Patient was evaluated and treated as appropriate for the patient's presenting symptoms and complaint, with consideration of any critical or life threatening conditions that may be associated with their obtained history and exam as noted above. All results were discussed with patient. Patient provided the opportunity to ask questions, and express concerns. Patient was educated on treatments based on their presumed diagnosis as noted above. At this time we will discharge the patient with return precautions and follow-up recommendations. Verbal discharge instructions given a the bedside. Medication warnings reviewed. Patient is in agreement with this plan and has verbalized understanding of return precautions. After careful consideration I feel that that patient can be safely discharged from the emergency department, they were advised to followup with a primary care physician in 2-3 days. Dictation on this chart was performed using voice recognition software and may result in unintended grammatical, spelling, syntax or errors. - Vital Signs Vital signs: Temp Pulse Resp BP Pulse Ox 98.0 F 85 18 116/75 100 01/07/19 21:30 01/07/19 21:30 01/07/19 21:30 01/07/19 21:30 01/07/19 21:30 - Laboratory Result Diagrams: 01/07/19 18:03 01/07/19 18:03 Laboratory results interpreted by me: 01/07/19 01/07/19 16:35 18:03 Carbon Dioxide 31 H Est GFR (Non-Af Amer) 59 L AST 16 L Urine Ketones TRACE H Urine Urobilinogen 2.0 H - Diagnostic Test Radiology reviewed: Image reviewed, Reports reviewed Discharge - Discharge Clinical Impression: Low back pain Qualifiers: Chronicity: acute Back pain laterality: left Sciatica presence: without sciatica Qualified Code(s): M54.5 - Low back pain Condition: Good Disposition: HOME, SELF-CARE Instructions: Low Back Pain ([facility]) Additional Instructions: Follow up with your [id number] hours for further care or return to the ED IMMEDIATELY if symptoms worsen or you have any concerns. If you cannot afford to follow up with your primary care physician a list of low cost clinics have been provided at the end of your discharge papers as well. Most prescribed medications have multiple side effects. The safest thing to do is when filling your prescription speak to your pharmacist regarding possible interactions with your normal home medications and over the counter medications such as Ibuprofen, Tylenol, Benadryl. If you experience any symptoms that cause you discomfort or concern you should discontinue the medication immediately and return to the emergency room or call your primary care physician. Prescriptions: Ketorolac Tromethamine [Toradol 10 mg Tablet] 10 mg PO Q6HP PRN #16 tablet PRN Reason: Referrals: COLIN DAVE MD [ACTIVE STAFF] - Follow up as needed
[2019-01-07 21:45] VITALS: BP 116/75
== END 2019-01-07 21:46 | disposition home or self-care (01) ==
LOC: ER 15:42
DX: M54.5 Low back pain (principal); R10.9 Unspecified abdominal pain; X50.0XXA Overexertion from strenuous movement or load, initial encounter; E78.00 Pure hypercholesterolemia, unspecified; Z87.442 Personal history of urinary calculi; Z86.73 Personal history of transient ischemic attack (TIA), and cerebral infarction without residual deficits
CPT/HCPCS: 99284; 96372; 36415; 85025; 80053; 81001; 74176; J1885

== ENCOUNTER 2019-03-19 08:49 | Inpatient (IN) | payer MEDICARE ==
[2019-03-19] MEDS ORDERED: ASPIRIN 81 MG TABLET, CHEWABLE PO ONE (08:55)
--- NOTE | 2019-03-19 09:16 | RADIOLOGY REPORT (SQ) ---
EXAM DESCRIPTION: CHEST SINGLE VIEW COMPLETED DATE/TIME: 03/19/2019 9:07 am REASON FOR STUDY: Chest pain COMPARISON: 06/07/2016 EXAM PARAMETERS: NUMBER OF VIEWS: One view. TECHNIQUE: Single frontal radiographic view of the chest acquired. RADIATION DOSE: NA LIMITATIONS: None. FINDINGS: LUNGS AND PLEURA: No opacities, masses or pneumothorax. No pleural effusion. MEDIASTINUM AND HILAR STRUCTURES: No masses. Contour normal. HEART AND VASCULAR STRUCTURES: Heart normal in size. Aortic atherosclerosis. BONES: No acute findings. HARDWARE: None in the chest. OTHER: No other significant finding. IMPRESSION: NO ACUTE RADIOGRAPHIC FINDING IN THE CHEST. TECHNICAL DOCUMENTATION: JOB ID: [id number] [employer]- All Rights Reserved Reading location - IP/workstation name: [email or web address]
[2019-03-19 09:17] LABS: ABSOLUTE BASOPHILS # (AUTO) 0.1 10^3/uL (0.0-0.2); ABSOLUTE EOSINOPHILS # (AUTO) 0.3 10^3/uL (0.0-0.6); ABSOLUTE LYMPHOCYTES (AUTO) 1.6 10^3/uL (0.5-4.7); ABSOLUTE MONOCYTES (AUTO) 0.8 10^3/uL (0.1-1.4); ABSOLUTE NEUT (AUTO) 4.2 10^3/uL (1.7-8.2); BASOPHILS % (AUTO) 1.3 % (0-2); EOSINOPHILS % (AUTO) 4.1 % (0-6); HEMOGLOBIN 16.5 g/dL (13.5-17.0); LYMPHOCYTES % (AUTO) 22.6 % (13-45); MEAN CORPUSCULAR HEMOGLOBIN 29.9 pg (27.0-33.4); MEAN CORPUSCULAR HGB CONC 33.7 g/dL (32.0-36.0); MEAN CORPUSCULAR VOLUME 89 fl (80-97); MONOCYTES % (AUTO) 11.3 % (3-13); PLATELET COUNT 243 10^3/uL (150-450); RED BLOOD COUNT 5.52 10^6/uL (4.35-5.55); RED CELL DISTRIBUTION WIDTH 14.2 % (11.5-14.0); SEGMENTED NEUTROPHILS % (AUTO) 60.7 % (42-78); TOTAL CELLS COUNTED % (AUTO) 100 %; WHITE BLOOD COUNT 6.9 10^3/uL (4.0-10.5)
[2019-03-19 09:35] LABS: ALANINE AMINOTRANSFERASE 506 U/L (21-72); ALBUMIN 4.6 g/dL (3.5-5.0); ALKALINE PHOSPHATASE 132 U/L (38-126); ANION GAP 11 (5-19); ASPARTATE AMINO TRANSFERASE 265 U/L (17-59); BILIRUBIN,DIRECT 0.4 mg/dL (0.0-0.4); BILIRUBIN,TOTAL 0.9 mg/dL (0.2-1.3); BLOOD UREA NITROGEN 19 mg/dL (7-20); CALCIUM 9.8 mg/dL (8.4-10.2); CARBON DIOXIDE 29 mmol/L (22-30); CHLORIDE 96 mmol/L (98-107); CREATINE KINASE 40 U/L (55-170); GLUCOSE 86 mg/dL (75-110); POTASSIUM 4.4 mmol/L (3.6-5.0)
[2019-03-19 09:59] LABS: CREATINE KINASE MB 1.33 ng/mL (<4.55)
[2019-03-19 10:02] LABS: TROPONIN I 0.291 ng/mL
--- NOTE | 2019-03-19 10:02 | ER Document Report ---
ED Cardiac - General Chief Complaint: Chest Pain Stated Complaint: HEART RATE ISSUES Time Seen by Provider: 03/19/19 09:38 Primary Care Provider: DENNYS CLARKE PA-C [Primary Care Provider] - Follow up as needed Notes: Patient is a 63-year-old male with a history of TIA, CVA, kidney stones and basal cell carcinoma who presents to the emergency department for the chief complaint of palpitations. Patient states that this morning around 230 he was awake when he felt a feeling of rapid heartbeat. Patient states that it initially got better on its own and he was able to fall asleep. Patient states he woke up around 7 AM feeling short of breath, and having a feeling of rapid heartbeat. Patient reports that at that time he was also having chest pain that radiated down the left arm. Patient reports he did call EMS at that time they did convert him with vagal maneuvers. Patient denies history of cardiac problems. Patient does report retaining fluid in his lower extremities over the past year in which his primary care physician has given him furosemide as needed. Patient reports that he last smoked meth 1 week ago. Patient reports prior to that he did smoke meth every day for the past few months. Patient also reports using crack cocaine within the past 6 months. Patient reports rare alcohol use and denies smoking cigarettes. Patient reports feeling normal since his heart rate has slowed and denies chest pain or shortness of breath at this time. TRAVEL OUTSIDE OF THE [place] IN LAST 30 DAYS: No - Related Data Allergies/Adverse Reactions: No Known Allergies Allergy (Verified 03/19/19 08:54) Past Medical History - General Information source: Patient - Social History Smoking Status: Never Smoker Cigarette use (# per day): No Chew tobacco use (# tins/day): No Frequency of alcohol use: Occasional Drug Abuse: Cocaine, Methamphetamine Lives with: Friend Family History: CAD, Other - Parkinson's Patient has suicidal ideation: No Patient has homicidal ideation: No - Past Medical History Cardiac Medical History: Reports: Hx Hypercholesterolemia, Hx Hypertension - hx of in past-no current meds Denies: Hx Coronary Artery Disease, Hx Heart Attack Pulmonary Medical History: Reports: Hx Pneumonia - 2004 Denies: Hx Asthma, Hx Bronchitis, Hx COPD EENT Medical History: Reports: None Neurological Medical History: Reports: Hx Cerebrovascular Accident. Denies: Hx Seizures Endocrine Medical History: Reports: None Renal/ Medical History: Reports: Hx Kidney Stones. Denies: Hx Peritoneal Dialysis Malignancy Medical History: Reports None GI Medical History: Reports: Hx Gastroesophageal Reflux Disease Musculoskeletal Medical History: Reports Hx Arthritis Skin Medical History: Reports None Psychiatric Medical History: Reports: Hx Depression Traumatic Medical History: Reports: None Infectious Medical History: Reports: None Past Surgical History: Reports: Hx Abdominal Surgery - hernia repair, Hx Appendectomy - hernia, Hx Genitourinary Surgery - vasectomy, Hx Tonsillectomy, Other - Vasectomy, hernia repair - Immunizations Hx Diphtheria, Pertussis, Tetanus Vaccination: Yes Review of Systems - Review of Systems Constitutional: No symptoms reported EENT: No symptoms reported Cardiovascular: See HPI Respiratory: See HPI Gastrointestinal: No symptoms reported Genitourinary: No symptoms reported Male Genitourinary: No symptoms reported Musculoskeletal: No symptoms reported Skin: No symptoms reported Hematologic/Lymphatic: No symptoms reported Neurological/Psychological: No symptoms reported Physical Exam - Vital signs Vitals: Resp Pulse Ox 14 99 03/19/19 08:54 03/19/19 08:54 - Notes Notes: GENERAL: Well-appearing, well-nourished and in no acute distress. HEAD: Atraumatic, normocephalic. EYES: Pupils equal round and reactive to light, extraocular movements intact, sclera anicteric, conjunctiva are normal. ENT: Nares patent, oropharynx clear without exudates. Moist mucous membranes. NECK: Normal range of motion, supple without lymphadenopathy or JVD. LUNGS: Breath sounds clear to auscultation bilaterally and equal. No wheezes rales or rhonchi. HEART: Regular rate and rhythm without murmurs, rubs or gallops. ABDOMEN: Soft, nontender, normoactive bowel sounds. No guarding, no rebound. No masses appreciated. BACK: No cervical, thoracic, lumbar midline tenderness. No saddle anesthesia, normal distal neurovascular exam. GENITOURINARY: Deferred. EXTREMITIES: Normal range of motion, + 1 non pitting edema to b/l lower extremities. No clubbing or cyanosis. NEUROLOGICAL: Cranial nerves II through XII grossly intact. Normal speech, normal gait. PSYCH: Normal mood, normal affect. SKIN: Warm, Dry, normal turgor, no rashes or lesions noted. Course - Re-evaluation Re-evalutation: 03/19/19 10:08 Patient's troponin came back at 0.291. Patient is in normal sinus rhythm with a heart rate of 77 and a blood pressure of 113/94. Patient is 100% on room air. Patient does admit to using meth 1 week ago and has been using it daily for the past few months as well as occasionally using crack cocaine. Patient reports rare alcohol use. Patient's liver enzymes were elevated. Patient denies any history of liver problems that he has been told of. I did discuss the patient's case with Dr. Rea my supervising physician who recommends obtaining a urine drug screen and to repeat his troponin at the appropriate timeframe. Patient is asymptomatic at this time and denies chest pain or shortness of breath. I will monitor closely. 03/19/19 14:01 Patient's repeat troponin was elevated at 0.578. I did discuss the findings with my supervising physician Dr. Rea who recommends calling the hospitalist as he does meet the medical indications for an NSTEMI admission at this facili ty. I did reevaluate the patient prior to calling the hospitalist who remains asymptomatic without chest pain or shortness of breath. Patient states he has been resting comfortably and sleeping. Patient is in a normal sinus rhythm with a heart rate of 98. I did speak with the hospitalist Sunday Austin NP who agrees to admit and will come down to the emergency department and see the patient for evaluation. - Vital Signs Vital signs: Temp Pulse Resp BP Pulse Ox 17 128/72 H 100 03/19/19 13:01 03/19/19 13:00 03/19/19 13:01 - Laboratory Result Diagrams: 03/19/19 08:20 03/19/19 08:20 Laboratory results interpreted by me: 03/19/19 03/19/19 03/19/19 08:20 08:20 10:15 RDW 14.2 H Sodium 136.3 L Chloride 96 L AST 265 H ALT 506 H Alkaline Phosphatase 132 H Creatine Kinase 40 L Urine Ketones TRACE H Urine Urobilinogen 2.0 H - Diagnostic Test Radiology reviewed: Reports reviewed Radiology results interpreted by me: 03/19/19 10:13 Chest X-Ray 03/19/19 08:56 IMPRESSION: NO ACUTE RADIOGRAPHIC FINDING IN THE CHEST. - EKG Interpretation by Me Additional EKG results interpreted by me: 03/19/19 10:13 Patient's EKG shows a sinus rhythm with a heart rate of 90. Patient's UT interval 156, QT 364 and QTC is 446. Patient has a left axis deviation. There is no ST segment changes in consecutive leads. 03/19/19 14:15 Patient's repeat EKG shows a sinus rhythm with a heart rate of 84. Patient's UT interval is 156, QT 376 and QTC is 445. Patient has a left axis deviation no acute ST segment changes in consecutive leads. Discharge - Discharge Clinical Impression: NSTEMI (non-ST elevated myocardial infarction), Drug abuse, SVT (supraventricular tachycardia), Elevated troponin, Elevated LFTs Condition: Stable Disposition: ADMITTED INPATIENT Admitting Provider: Sunday Austin NP Unit Admitted: Telemetry Referrals: DENNYS CLARKE PA-C [Primary Care Provider] - Follow up as needed
[2019-03-19 10:23] LABS: PARTIAL THROMBOPLASTIN TIME 34.5 SEC (23.5-35.8); PROTHROMBIN TIME 14.3 SEC (11.4-15.4)
[2019-03-19 10:58] LABS: APPEARANCE,URINE CLEAR; BILIRUBIN,URINE NEGATIVE (NEGATIVE); COLOR,URINE YELLOW; GLUCOSE, URINE NEGATIVE (NEGATIVE); KETONES,URINE TRACE mg/dL (NEGATIVE); LEUKOCYTE ESTERASE,URINE NEGATIVE (NEGATIVE); NITRITE,URINE NEGATIVE (NEGATIVE); PROTEIN,URINE NEGATIVE (NEGATIVE); URINE SPECIFIC GRAVITY 1.011
[2019-03-19 11:13] LABS: URINE BARBITURATES SCREEN NEGATIVE; URINE BENZODIAZEPINES SCREEN NEGATIVE; URINE COCAINE SCREEN NEGATIVE; URINE MARIJUANA (THC) SCREEN NEGATIVE; URINE METHADONE SCREEN NEGATIVE; URINE PHENCYCLIDINE SCREEN NEGATIVE
[2019-03-19] MEDS ORDERED: ONDANSETRON 4 MG TAB.RAPDIS PO PRN (14:19)
[2019-03-19] MEDS ORDERED: ZOLPIDEM TARTRATE 5 MG TABLET PO PRN (14:19)
[2019-03-19] MEDS ORDERED: OXYCODONE-ACETAMINOPHEN 5-325 MG TABLET PO PRN (14:19)
[2019-03-19] MEDS ORDERED: LORAZEPAM INJ 2 MG/1 ML VIAL IV PRN (14:28)
--- NOTE | 2019-03-19 14:31 | Progress Note Acknowledgement ---
Progress Note Acknowledgement Progess Note Acknowledgement: I, the undersigned member of the medical staff with appropriate privileges and with supervisory authority over [Sunday Austin], a dependent practice allied health professional, acknowledge that I have reviewed the progress notes entered on this patient, and in my professional judgment believe that the assessment made and/or any care evidenced was appropriate
--- NOTE | 2019-03-19 14:37 | PDOC H&P ---
History of Present Illness Admission Date/PCP: 03/19/2019 DENNYS CLARKE PA-C Patient complains of: Palpitations, chest pain History of Present Illness: CHRISTEL VELAZCO is a 63 year old male who presents the ER after waking this morning at 2 AM had a bout of chest pain momentarily that woke him out of sleep for which he went right back to sleep. Patient states he woke again at 7 AM with palpitations. Patient called EMS they arrived so he was in SVT on the monitor. Patient at that time performing vagal maneuver converted to sinus rhythm. Patient presented to the ER with initial troponin 0.2 subsequent at 0.5. Patient was given aspirin in the ER. He had no other treatment prior to arrival no true aggravating factors other the patient does do methamphetamines on a regular basis by injection. Past Medical History Cardiac Medical History: Reports: Hyperlipidema, Hypertension - hx of in past-no current meds Denies: Coronary Artery Disease, Myocardial Infarction Pulmonary Medical History: Reports: Pneumonia - 2004 Denies: Asthma, Bronchitis, Chronic Obstructive Pulmonary Disease (COPD) EENT Medical History: Reports: None Neurological Medical History: Denies: Seizures Endocrine Medical History: Reports: None Malignancy Medical History: Reports: None GI Medical History: Reports: Gastroesophageal Reflux Disease Musculoskeltal Medical History: Reports: Arthritis Skin Medical History: Reports: None Psychiatric Medical History: Reports: Depression Traumatic Medical History: Reports: None Hematology: Denies: Anemia Infectious Medical History: Reports: None Past Surgical History Past Surgical History: Reports: Appendectomy - hernia, Tonsillectomy, Other - Vasectomy, hernia repair Social History Lives with: Friend Smoking Status: Never Smoker Frequency of Alcohol Use: Social Hx Recreational Drug Use: Yes Drugs: Cocaine, Other - Methamphetamine Hx Prescription Drug Abuse: No - Advance Directive Resuscitation Status: Full Code Family History Family History: CAD, Other - Parkinson's Parental Family History Reviewed: Yes Children Family History Reviewed: Yes Sibling(s) Family History Reviewed.: Yes Medication/Allergy Allergies/Adverse Reactions: No Known Allergies Allergy (Verified 03/19/19 08:54) Review of Systems Constitutional: ABSENT: chills, fever(s), headache(s), weight gain, weight loss Eyes: ABSENT: visual disturbances Ears: ABSENT: hearing changes Cardiovascular: PRESENT: chest pain, palpitations Respiratory: ABSENT: cough, hemoptysis Gastrointestinal: ABSENT: abdominal pain, constipation, diarrhea, hematemesis, hematochezia, nausea, vomiting Genitourinary: ABSENT: dysuria, hematuria Musculoskeletal: ABSENT: joint swelling Integumentary: ABSENT: rash, wounds Neurological: ABSENT: abnormal gait, abnormal speech, confusion, dizziness, focal weakness, syncope Psychiatric: ABSENT: anxiety, depression, homidical ideation, suicidal ideation Endocrine: ABSENT: cold intolerance, heat intolerance, polydipsia, polyuria Hematologic/Lymphatic: ABSENT: easy bleeding, easy bruising Physical Exam Vital Signs: Temp Pulse Resp BP Pulse Ox 17 128/72 H 100 03/19/19 13:01 03/19/19 13:00 03/19/19 13:01 Intake & Output 03/18/19 03/19/19 03/20/19 06:59 06:59 06:59 Weight 66.678 kg General appearance: PRESENT: no acute distress, well-developed, well-nourished Head exam: PRESENT: atraumatic, normocephalic Eye exam: PRESENT: conjunctiva pink, EOMI, PERRLA. ABSENT: scleral icterus Ear exam: PRESENT: normal external ear exam Mouth exam: PRESENT: moist, tongue midline Neck exam: ABSENT: carotid bruit, JVD, lymphadenopathy, thyromegaly Respiratory exam: PRESENT: clear to auscultation felicia. ABSENT: rales, rhonchi, wheezes Cardiovascular exam: PRESENT: RRR. ABSENT: diastolic murmur, rubs, systolic murmur Pulses: PRESENT: normal dorsalis pedis pul Vascular exam: PRESENT: normal capillary refill GI/Abdominal exam: PRESENT: normal bowel sounds, soft. ABSENT: distended, guarding, mass, organolmegaly, rebound, tenderness Rectal exam: PRESENT: deferred Extremities exam: PRESENT: full ROM. ABSENT: calf tenderness, clubbing, pedal edema Neurological exam: PRESENT: alert, awake, oriented to person, oriented to place, oriented to time, oriented to situation, CN II-XII grossly intact. ABSENT: motor sensory deficit Psychiatric exam: PRESENT: appropriate affect, normal mood. ABSENT: homicidal ideation, suicidal ideation Skin exam: PRESENT: dry, intact, warm. ABSENT: cyanosis, rash Results Laboratory Results: 03/19/19 08:20 03/19/19 08:20 03/19/19 03/19/19 03/19/19 08:20 08:20 08:20 WBC 6.9 RBC 5.52 Hgb 16.5 Hct 49.0 MCV 89 MCH 29.9 MCHC 33.7 RDW 14.2 H Plt Count 243 Seg Neutrophils % 60.7 Lymphocytes % 22.6 Monocytes % 11.3 Eosinophils % 4.1 Basophils % 1.3 Absolute Neutrophils 4.2 Absolute Lymphocytes 1.6 Absolute Monocytes 0.8 Absolute Eosinophils 0.3 Absolute Basophils 0.1 Sodium 136.3 L Potassium 4.4 Chloride 96 L Carbon Dioxide 29 Anion Gap 11 BUN 19 Creatinine 1.07 Est GFR ( Amer) > 60 Est GFR (Non-Af Amer) > 60 Glucose 86 Calcium 9.8 Total Bilirubin 0.9 AST 265 H ALT 506 H Alkaline Phosphatase 132 H Total Protein 8.0 Albumin 4.6 Lipase 82.5 Urine Color Urine Appearance Urine pH Ur Specific [place] Urine Protein Urine Glucose (UA) Urine Ketones Urine Blood Urine Nitrite Ur Leukocyte Esterase Urine WBC (Auto) Urine RBC (Auto) 03/19/19 10:15 WBC RBC Hgb Hct MCV MCH MCHC RDW Plt Count Seg Neutrophils % Lymphocytes % Monocytes % Eosinophils % Basophils % Absolute Neutrophils Absolute Lymphocytes Absolute Monocytes Absolute Eosinophils Absolute Basophils Sodium Potassium Chloride Carbon Dioxide Anion Gap BUN Creatinine Est GFR ( Amer) Est GFR (Non-Af Amer) Glucose Calcium Total Bilirubin AST ALT Alkaline Phosphatase Total Protein Albumin Lipase Urine Color YELLOW Urine Appearance CLEAR Urine pH 7.0 Ur Specific [place] 1.011 Urine Protein NEGATIVE Urine Glucose (UA) NEGATIVE Urine Ketones TRACE H Urine Blood NEGATIVE Urine Nitrite NEGATIVE Ur Leukocyte Esterase NEGATIVE Urine WBC (Auto) 1 Urine RBC (Auto) 0 03/19/19 03/19/19 03/19/19 08:20 08:20 12:45 Creatine Kinase 40 L CK-MB (CK-2) 1.33 Troponin I 0.291 0.578 Impressions: Chest X-Ray 03/19/19 08:56 IMPRESSION: NO ACUTE RADIOGRAPHIC FINDING IN THE CHEST. Assessment and Plan - Diagnosis (1) NSTEMI (non-ST elevated myocardial infarction) Is this a current diagnosis for this admission?: Yes Plan: 03/19/2019-admit to medical surgical telemetry. Serial troponins. Aspirin, bet a-blockers, high-dose Lipitor. Echocardiogram in a.m. and a exercise stress test with [facility] on Sunday. Patient was discussed with Dr. Du in consultation and Dr. Macias will see patient in follow through his hospital stay. (2) Elevated LFTs Is this a current diagnosis for this admission?: Yes Plan: 03/19/2019-I suspect this is hepatitis from illicit drug use. I will perform a hepatitis panel. (3) SVT (supraventricular tachycardia) Is this a current diagnosis for this admission?: Yes Plan: 03/19/2019-short bout of SVT this a.m. No other arrhythmias at this time. Patient sinus rhythm with no ST elevation on 12-lead per my reading. We will continue to monitor with continuous telemetry. Could be from withdrawal from methamphetamine. Place patient on Ativan for control. We will continue to follow (4) Withdrawal from recreational drug Is this a current diagnosis for this admission?: Yes Plan: 03/19/2019-continue to follow. I will place patient Ativan at this time for anxiety or other problems. Patient does start withdrawing heavily I will place him on other medications to help with his symptomology. - Time Time Spent with patient: 35 or more minutes - Inpatient Certification Based on my medical assessment, after consideration of the patient's comorbidities, presenting symptoms, or acuity I expect that the services needed warrant INPATIENT care.: Yes I certify that my determination is in accordance with my understanding of Medicare's requirements for reasonable and necessary INPATIENT services [42 CFR 412.3e].: Yes Medical Necessity: Other - Serial troponins, echocardiogram, exercise stress test, cardiology consult.
--- NOTE | 2019-03-19 14:38 | ADVANCED CARE ---
- Diagnosis (1) NSTEMI (non-ST elevated myocardial infarction) Diagnosis Current: Yes (2) Elevated LFTs Diagnosis Current: Yes (3) SVT (supraventricular tachycardia) Diagnosis Current: Yes (4) Withdrawal from recreational drug Diagnosis Current: Yes Attendance: Myself and patient Resuscitation Status: Full Code Discussion: Discussion with myself and patient about the adverse effects of continued drug abuse. Also about the plan of care will hospitalize. I did talk to patient about discussing this with Dr. Du is going to perform echocardiogram and stress test. Also about withdrawal symptoms and that I would place patient on medications to prevent this. Care Planning Goals: 1-cessation from drug abuse. 2-echocardiogram 3-exercise stress test 4-Ativan and other medications for withdrawal 5-cardiology consult Time Spent: 20 minutes
[2019-03-19] MEDS: ATORVASTATIN CALCIUM 80 MG TABLET PO SCH (15:53)
[2019-03-19] MEDS: METOPROLOL TARTRATE 25 MG TABLET PO SCH (21:02)
--- NOTE | 2019-03-20 00:02 | EKG REPORT ---
SEVERITY:- OTHERWISE NORMAL ECG - SINUS RHYTHM BORDERLINE LEFT AXIS DEVIATION : Confirmed by: Bala Hudson 20-Mar-2019 00:00:35
--- NOTE | 2019-03-20 00:02 | EKG REPORT ---
SEVERITY:- ABNORMAL ECG - SINUS RHYTHM LEFT AXIS DEVIATION PROBABLE ANTEROSEPTAL INFARCT, AGE INDETERM : Confirmed by: Bala Hudson 20-Mar-2019 00:00:30
[2019-03-20 05:42] LABS: ABSOLUTE BASOPHILS # (AUTO) 0.1 10^3/uL (0.0-0.2); ABSOLUTE EOSINOPHILS # (AUTO) 0.3 10^3/uL (0.0-0.6); ABSOLUTE LYMPHOCYTES (AUTO) 1.4 10^3/uL (0.5-4.7); ABSOLUTE MONOCYTES (AUTO) 0.7 10^3/uL (0.1-1.4); ABSOLUTE NEUT (AUTO) 3.7 10^3/uL (1.7-8.2); BASOPHILS % (AUTO) 1.5 % (0-2); EOSINOPHILS % (AUTO) 4.7 % (0-6); HEMATOCRIT 45.1 % (37.9-51.0); HEMOGLOBIN 15.2 g/dL (13.5-17.0); LYMPHOCYTES % (AUTO) 23.2 % (13-45); MEAN CORPUSCULAR HEMOGLOBIN 29.9 pg (27.0-33.4); MEAN CORPUSCULAR HGB CONC 33.6 g/dL (32.0-36.0); MEAN CORPUSCULAR VOLUME 89 fl (80-97); MONOCYTES % (AUTO) 11.4 % (3-13); PLATELET COUNT 202 10^3/uL (150-450); RED BLOOD COUNT 5.07 10^6/uL (4.35-5.55); RED CELL DISTRIBUTION WIDTH 14.1 % (11.5-14.0); SEGMENTED NEUTROPHILS % (AUTO) 59.2 % (42-78); TOTAL CELLS COUNTED % (AUTO) 100 %; WHITE BLOOD COUNT 6.2 10^3/uL (4.0-10.5)
[2019-03-20 06:15] LABS: ANION GAP 8 (5-19); BLOOD UREA NITROGEN 17 mg/dL (7-20); CARBON DIOXIDE 30 mmol/L (22-30); CHLORIDE 98 mmol/L (98-107); CHOLESTEROL 213.58 mg/dL (0-200); GLUCOSE 81 mg/dL (75-110); POTASSIUM 4.4 mmol/L (3.6-5.0); TRIGLYCERIDES 68 mg/dL (<150)
[2019-03-20 06:21] LABS: DIRECT LDL 158 mg/dL (<100)
[2019-03-20 06:24] LABS: FREE T4 (FREE THYROXINE) 1.6 ng/dL (0.78-2.19)
[2019-03-20 06:38] LABS: THYROID STIMULATING HORMONE 1.54 uIU/mL (0.47-4.68)
--- NOTE | 2019-03-20 07:51 | PDOC PROGRESS REPORT ---
Subjective Progress Note for:: 03/20/19 Subjective:: 03/20/2019-no complaints this a.m. Reason For Visit: SVT,NON STEMI Physical Exam Vital Signs: Temp Pulse Resp BP Pulse Ox 97.6 F 72 16 110/68 99 03/20/19 03:00 03/20/19 03:00 03/20/19 03:00 03/20/19 03:00 03/20/19 03:00 Intake & Output 03/19/19 03/20/19 03/21/19 06:59 06:59 06:59 Intake Total 680 Balance 680 Weight 63.9 kg General appearance: PRESENT: no acute distress, well-developed, well-nourished Head exam: PRESENT: atraumatic, normocephalic Eye exam: PRESENT: conjunctiva pink, EOMI, PERRLA. ABSENT: scleral icterus Ear exam: PRESENT: normal external ear exam Mouth exam: PRESENT: moist, tongue midline Teeth exam: PRESENT: poor dentation Neck exam: ABSENT: carotid bruit, JVD, lymphadenopathy, thyromegaly Respiratory exam: PRESENT: clear to auscultation felicia. ABSENT: rales, rhonchi, wheezes Cardiovascular exam: PRESENT: RRR. ABSENT: diastolic murmur, rubs, systolic murmur Pulses: PRESENT: normal dorsalis pedis pul Vascular exam: PRESENT: normal capillary refill GI/Abdominal exam: PRESENT: normal bowel sounds, soft. ABSENT: distended, guarding, mass, organolmegaly, rebound, tenderness Rectal exam: PRESENT: deferred Extremities exam: PRESENT: full ROM. ABSENT: calf tenderness, clubbing, pedal edema Neurological exam: PRESENT: alert, awake, oriented to person, oriented to place, oriented to time, oriented to situation, CN II-XII grossly intact. ABSENT: motor sensory deficit Psychiatric exam: PRESENT: appropriate affect, normal mood. ABSENT: homicidal ideation, suicidal ideation Skin exam: PRESENT: dry, intact, warm. ABSENT: cyanosis, rash Results Laboratory Results: 03/20/19 04:25 03/20/19 04:25 03/19/19 03/19/19 03/19/19 08:20 08:20 08:20 WBC 6.9 RBC 5.52 Hgb 16.5 Hct 49.0 MCV 89 MCH 29.9 MCHC 33.7 RDW 14.2 H Plt Count 243 Seg Neutrophils % 60.7 Lymphocytes % 22.6 Monocytes % 11.3 Eosinophils % 4.1 Basophils % 1.3 Absolute Neutrophils 4.2 Absolute Lymphocytes 1.6 Absolute Monocytes 0.8 Absolute Eosinophils 0.3 Absolute Basophils 0.1 Sodium 136.3 L Potassium 4.4 Chloride 96 L Carbon Dioxide 29 Anion Gap 11 BUN 19 Creatinine 1.07 Est GFR ( Amer) > 60 Est GFR (Non-Af Amer) > 60 Glucose 86 Calcium 9.8 Total Bilirubin 0.9 AST 265 H ALT 506 H Alkaline Phosphatase 132 H Total Protein 8.0 Albumin 4.6 Triglycerides Cholesterol LDL Cholesterol Direct VLDL Cholesterol HDL Cholesterol Lipase 82.5 TSH Free T4 Urine Color Urine Appearance Urine pH Ur Specific Parshall Urine Protein Urine Glucose (UA) Urine Ketones Urine Blood Urine Nitrite Ur Leukocyte Esterase Urine WBC (Auto) Urine RBC (Auto) 03/19/19 03/20/19 03/20/19 10:15 04:25 04:25 WBC 6.2 RBC 5.07 Hgb 15.2 Hct 45.1 MCV 89 MCH 29.9 MCHC 33.6 RDW 14.1 H Plt Count 202 Seg Neutrophils % 59.2 Lymphocytes % 23.2 Monocytes % 11.4 Eosinophils % 4.7 Basophils % 1.5 Absolute Neutrophils 3.7 Absolute Lymphocytes 1.4 Absolute Monocytes 0.7 Absolute Eosinophils 0.3 Absolute Basophils 0.1 Sodium 135.5 L Potassium 4.4 Chloride 98 Carbon Dioxide 30 Anion Gap 8 BUN 17 Creatinine 1.09 Est GFR ( Amer) > 60 Est GFR (Non-Af Amer) > 60 Glucose 81 Calcium 9.0 Total Bilirubin AST ALT Alkaline Phosphatase Total Protein Albumin Triglycerides 68 Cholesterol 213.58 H LDL Cholesterol Direct 158 H VLDL Cholesterol 14.0 HDL Cholesterol 41 Lipase TSH Free T4 Urine Color YELLOW Urine Appearance CLEAR Urine pH 7.0 Ur Specific Parshall 1.011 Urine Protein NEGATIVE Urine Glucose (UA) NEGATIVE Urine Ketones TRACE H Urine Blood NEGATIVE Urine Nitrite NEGATIVE Ur Leukocyte Esterase NEGATIVE Urine WBC (Auto) 1 Urine RBC (Auto) 0 03/20/19 04:25 WBC RBC Hgb Hct MCV MCH MCHC RDW Plt Count Seg Neutrophils % Lymphocytes % Monocytes % Eosinophils % Basophils % Absolute Neutrophils Absolute Lymphocytes Absolute Monocytes Absolute Eosinophils Absolute Basophils Sodium Potassium Chloride Carbon Dioxide Anion Gap BUN Creatinine Est GFR ( Amer) Est GFR (Non-Af Amer) Glucose Calcium Total Bilirubin AST ALT Alkaline Phosphatase Total Protein Albumin Triglycerides Cholesterol LDL Cholesterol Direct VLDL Cholesterol HDL Cholesterol Lipase TSH 1.54 Free T4 1.60 Urine Color Urine Appearance Urine pH Ur Specific Parshall Urine Protein Urine Glucose (UA) Urine Ketones Urine Blood Urine Nitrite Ur Leukocyte Esterase Urine WBC (Auto) Urine RBC (Auto) 03/19/19 03/19/19 03/19/19 08:20 08:20 12:45 Creatine Kinase 40 L CK-MB (CK-2) 1.33 Troponin I 0.291 0.578 NT-Pro-B Natriuret Pep 03/19/19 03/19/19 03/20/19 12:45 18:33 00:18 Creatine Kinase CK-MB (CK-2) Troponin I 0.425 0.258 NT-Pro-B Natriuret Pep 268 Impressions: Chest X-Ray 03/19/19 08:56 IMPRESSION: NO ACUTE RADIOGRAPHIC FINDING IN THE CHEST. Assessment and Plan - Diagnosis (1) NSTEMI (non-ST elevated myocardial infarction) Is this a current diagnosis for this admission?: Yes Plan: 03/19/2019-admit to medical surgical telemetry. Serial troponins. Aspirin, beta-blockers, high-dose Lipitor. Echocardiogram in a.m. and a exercise stress test with [facility] on Sunday. Patient was discussed with Dr. Du in consultation and Dr. Macias will see patient in follow through his hospital stay. 03/20/2019-no chest pain this a.m. still troponins until trending down. This elevation at the troponins did seem most likely secondary to SVT. Patient continues on aspirin, beta-blockers and high-dose Lipitor. He will obtain a echocardiogram this a.m. and exercise stress test tomorrow Cardiolite. Dr. Rick to see in consultation. (2) Elevated LFTs Is this a current diagnosis for this admission?: Yes Plan: 03/19/2019-I suspect this is hepatitis from illicit drug use. I will perform a hepatitis panel. 03/20/2019-awaiting hepatitis panel. (3) SVT (supraventricular tachycardia) Is this a current diagnosis for this admission?: Yes Plan: 03/19/2019-short bout of SVT this a.m. No other arrhythmias at this time. Patient sinus rhythm with no ST elevation on 12-lead per my reading. We will continue to monitor with continuous telemetry. Could be from withdrawal from methamphetamine. Place patient on Ativan for control. We will continue to follow 03/20/2019-no further episodes of SVT at this time. Continue to follow with telemetry. (4) Withdrawal from recreational drug Is this a current diagnosis for this admission?: Yes Plan: 03/19/2019-continue to follow. I will place patient Ativan at this time for anxiety or other problems. Patient does start withdrawing heavily I will place him on other medications to help with his symptomology. 03/20/2019-no signs of DT at this time. - Time Time Spent with patient: 15-24 minutes - Inpatient Certification Based on my medical assessment, after consideration of the patient's comorbidities, presenting symptoms, or acuity I expect that the services needed warrant INPATIENT care.: Yes I certify that my determination is in accordance with my understanding of Medicare's requirements for reasonable and necessary INPATIENT services [42 CFR 412.3e].: Yes Medical Necessity: Other - Echocardiogram, exercise stress test, cardiac monitoring and pain control with withdrawal protocol.
[2019-03-20] MEDS ORDERED: ASPIRIN 81 MG TABLET, CHEWABLE PO SCH (10:00)
[2019-03-20] MEDS: METOPROLOL TARTRATE 25 MG TABLET PO SCH ×2 (10:08→21:10)
[2019-03-20] MEDS: ATORVASTATIN CALCIUM 80 MG TABLET PO SCH (10:09)
[2019-03-20] MEDS: ACETAMINOPHEN 325 MG TABLET PO PRN (16:52)
--- NOTE | 2019-03-20 20:35 | EKG REPORT ---
SEVERITY:- OTHERWISE NORMAL ECG - SINUS RHYTHM LEFT AXIS DEVIATION : Confirmed by: Bala Hudson 20-Mar-2019 20:35:26
--- NOTE | 2019-03-20 22:06 | XCELERA REPORT ---
[address] [address] Transthoracic Echocardiogram Report Name: CHRISTEL VELAZCO Mignon JR Age: 63 yrs Gender: Male : 1955 Patient Status: Inpatient Patient Location: [address] [place], [place] [id number] Study Date: 03/20/2019 09:31 AM Height: 67 in Weight: 140 lb BSA: 1.7 m2 Procedure: A two-dimensional transthoracic echocardiogram with color flow and Doppler was performed. Study Quality: Fair. Reason For Study: SVT - Non-STEMI History: SVT - Non-STEMI. Ordering Physician: LONNIE SUAREZ Performed By: Yasemin Harding Interpretation Summary The left ventricle is normal in size. There is normal left ventricular wall thickness. LV EF is 65% The left ventricular ejection fraction is within normal limits. Doppler measurements suggest impaired left ventricular relaxation, which is associated with grade I/IV or mild diastolic dysfunction Cannot exclude mild hypokinesis of a smal area of both the apical IV septum and apical anteroseptal brantley. There is no thrombus. No ASD ,VSD , or PFO seen. The right ventricle is normal in size and function. The right atrium is normal. The left atrial size is normal. There is no evidence of mitral valve prolapse. There is no vegetation seen on the mitral valve. There is no mitral valve stenosis. There is a trace amount of mitral regurgitation There is no aortic valvular vegetation. There is no aortic valve stenosis There is no LVOT obstruction. No aortic regurgitation is present. There is no tricuspid stenosis. There is a trace amount of tricuspid regurgitation Unable to calculate RVSP due to insufficient TR jet. There is no pulmonic valvular stenosis. There is a trace amount of pulmonic regurgitation The aortic root is normal size. There is no pericardial effusion. MMode/2D Measurements & Calculations RVDd: 2.7 cm LVIDd: 4.5 cm FS: 37.9 % Ao root diam: 3.3 cm IVSd: 0.72 cm LVIDs: 2.8 cm EDV(Teich): Ao root area: LVPWd: 0.89 cm 94.5 ml 8.5 cm2 ESV(Teich): 30.1 ml EF(Teich): 68.1 % EDV(MOD-sp4): SV(MOD-sp4): 73.6 ml 28.5 ml ESV(MOD-sp4): 45.1 ml EF(MOD-sp4): 38.7 % Doppler Measurements & Calculations MV E max flaca: MV dec slope: Ao V2 max: LV V1 max P.6 cm/sec 125.1 cm/sec 2.3 mmHg MV A max flaca: 265.5 cm/sec2 Ao max PG: LV V1 max: 64.0 cm/sec MV dec time: 0.20 sec6.3 mmHg 76.1 cm/sec MV E/A: 0.82 PA V2 max: PI end-d flaca: 68.6 cm/sec 59.9 cm/sec PA max P.9 mmHg Left Ventricle The left ventricle is normal in size. There is normal left ventricular wall thickness. LV EF is 65%. The left ventricular ejection fraction is within normal limits. Doppler measurements suggest impaired left ventricular relaxation, which is associated with grade I/IV or mild diastolic dysfunction. Cannot exclude mild hypokinesis of a smal area of both the apical IV septum and apical anteroseptal brantley. There is no thrombus. No ASD ,VSD , or PFO seen. Right Ventricle The right ventricle is normal in size and function. Atria The right atrium is normal. The left atrial size is normal. Mitral Valve There is no evidence of mitral valve prolapse. There is no vegetation seen on the mitral valve. There is no mitral valve stenosis. There is a trace amount of mitral regurgitation. Aortic Valve There is no aortic valvular vegetation. There is no aortic valve stenosis. There is no LVOT obstruction. No aortic regurgitation is present. Tricuspid Valve There is no tricuspid stenosis. There is a trace amount of tricuspid regurgitation. Unable to calculate RVSP due to insufficient TR jet. Pulmonic Valve There is no pulmonic valvular stenosis. There is a trace amount of pulmonic regurgitation. Great Vessels The aortic root is normal size. The inferior vena cava appeared normal and decreased > 50% with respiration (RAP 5-10 mmHg). Effusions There is no pericardial effusion. : LONNIE SUAREZ > Park Macias
[2019-03-21 06:01] LABS: ABSOLUTE BASOPHILS # (AUTO) 0.1 10^3/uL (0.0-0.2); ABSOLUTE EOSINOPHILS # (AUTO) 0.3 10^3/uL (0.0-0.6); ABSOLUTE LYMPHOCYTES (AUTO) 1.4 10^3/uL (0.5-4.7); ABSOLUTE MONOCYTES (AUTO) 0.6 10^3/uL (0.1-1.4); ABSOLUTE NEUT (AUTO) 4.8 10^3/uL (1.7-8.2); BASOPHILS % (AUTO) 1.1 % (0-2); EOSINOPHILS % (AUTO) 3.8 % (0-6); HEMATOCRIT 48.7 % (37.9-51.0); HEMOGLOBIN 16.5 g/dL (13.5-17.0); MEAN CORPUSCULAR HEMOGLOBIN 30.1 pg (27.0-33.4); MEAN CORPUSCULAR HGB CONC 33.9 g/dL (32.0-36.0); MEAN CORPUSCULAR VOLUME 89 fl (80-97); MONOCYTES % (AUTO) 8.8 % (3-13); PLATELET COUNT 204 10^3/uL (150-450); RED BLOOD COUNT 5.48 10^6/uL (4.35-5.55); SEGMENTED NEUTROPHILS % (AUTO) 67.3 % (42-78); TOTAL CELLS COUNTED % (AUTO) 100 %; WHITE BLOOD COUNT 7.2 10^3/uL (4.0-10.5)
[2019-03-21 06:19] LABS: ANION GAP 9 (5-19); BLOOD UREA NITROGEN 17 mg/dL (7-20); CALCIUM 9.2 mg/dL (8.4-10.2); CARBON DIOXIDE 27 mmol/L (22-30); CHLORIDE 99 mmol/L (98-107); GLUCOSE 78 mg/dL (75-110); POTASSIUM 5.1 mmol/L (3.6-5.0)
--- NOTE | 2019-03-21 08:30 | PDOC PROGRESS REPORT ---
Subjective Progress Note for:: 03/21/19 Subjective:: 03/20/2019-no complaints this a.m. 03/21/2019-no complaints this a.m. Reason For Visit: SVT,NON STEMI Physical Exam Vital Signs: Temp Pulse Resp BP Pulse Ox 97.6 F 66 17 142/85 H 98 03/20/19 20:54 03/21/19 02:00 03/21/19 00:17 03/21/19 00:17 03/21/19 00:17 Intake & Output 03/20/19 03/21/19 03/22/19 06:59 06:59 06:59 Intake Total 680 800 Balance 680 800 Weight 63.9 kg 62.9 kg General appearance: PRESENT: no acute distress, well-developed, well-nourished Head exam: PRESENT: atraumatic, normocephalic Eye exam: PRESENT: conjunctiva pink, EOMI, PERRLA. ABSENT: scleral icterus Ear exam: PRESENT: normal external ear exam Mouth exam: PRESENT: moist, tongue midline Teeth exam: PRESENT: poor dentation Neck exam: ABSENT: carotid bruit, JVD, lymphadenopathy, thyromegaly Respiratory exam: PRESENT: clear to auscultation felicia. ABSENT: rales, rhonchi, wheezes Cardiovascular exam: PRESENT: RRR. ABSENT: diastolic murmur, rubs, systolic murmur Pulses: PRESENT: normal dorsalis pedis pul Vascular exam: PRESENT: normal capillary refill GI/Abdominal exam: PRESENT: normal bowel sounds, soft. ABSENT: distended, guarding, mass, organolmegaly, rebound, tenderness Rectal exam: PRESENT: deferred Extremities exam: PRESENT: full ROM. ABSENT: calf tenderness, clubbing, pedal edema Neurological exam: PRESENT: alert, awake, oriented to person, oriented to place, oriented to time, oriented to situation, CN II-XII grossly intact. ABSENT: motor sensory deficit Psychiatric exam: PRESENT: appropriate affect, normal mood. ABSENT: homicidal ideation, suicidal ideation Skin exam: PRESENT: dry, intact, warm. ABSENT: cyanosis, rash Results Laboratory Results: 03/21/19 04:30 03/21/19 04:30 03/21/19 03/21/19 04:30 04:30 WBC 7.2 RBC 5.48 Hgb 16.5 Hct 48.7 MCV 89 MCH 30.1 MCHC 33.9 RDW 14.0 Plt Count 204 Seg Neutrophils % 67.3 Lymphocytes % 19.0 Monocytes % 8.8 Eosinophils % 3.8 Basophils % 1.1 Absolute Neutrophils 4.8 Absolute Lymphocytes 1.4 Absolute Monocytes 0.6 Absolute Eosinophils 0.3 Absolute Basophils 0.1 Sodium 134.8 L Potassium 5.1 H Chloride 99 Carbon Dioxide 27 Anion Gap 9 BUN 17 Creatinine 0.96 Est GFR ( Amer) > 60 Est GFR (Non-Af Amer) > 60 Glucose 78 Calcium 9.2 03/19/19 03/19/19 03/19/19 08:20 08:20 12:45 Creatine Kinase 40 L CK-MB (CK-2) 1.33 Troponin I 0.291 0.578 NT-Pro-B Natriuret Pep 03/19/19 03/19/19 03/20/19 12:45 18:33 00:18 Creatine Kinase CK-MB (CK-2) Troponin I 0.425 0.258 NT-Pro-B Natriuret Pep 268 Impressions: Chest X-Ray 03/19/19 08:56 IMPRESSION: NO ACUTE RADIOGRAPHIC FINDING IN THE CHEST. Assessment and Plan - Diagnosis (1) NSTEMI (non-ST elevated myocardial infarction) Is this a current diagnosis for this admission?: Yes Plan: 03/19/2019-admit to medical surgical telemetry. Serial troponins. Aspirin, beta-blockers, high-dose Lipitor. Echocardiogram in a.m. and a exercise stress test with Card[facility] on Sunday. Patient was discussed with Dr. Du in consultation and Dr. Macias will see patient in follow through his hospital stay. 03/20/2019-no chest pain this a.m. still troponins until trending down. This elevation at the troponins did seem most likely secondary to SVT. Patient continues on aspirin, beta-blockers and high-dose Lipitor. He will obtain a echocardiogram this a.m. and exercise stress test tomorrow Cardiolite. Dr. Du to see in consultation. 03/21/2019-no chest pain no further bouts of SVT. Patient underwent echocardiogram yesterday shows a ejection fraction of 65%. Patient undergoing Cardiolite stress test today. We will continue to follow with cardiology. (2) Elevated LFTs Is this a current diagnosis for this admission?: Yes Plan: 03/19/2019-I suspect this is hepatitis from illicit drug use. I will perform a hepatitis panel. 03/20/2019-awaiting hepatitis panel. 03/21/2019-hepatitis panel pending (3) SVT (supraventricular tachycardia) Is this a current diagnosis for this admission?: Yes Plan: 03/19/2019-short bout of SVT this a.m. No other arrhythmias at this time. Patient sinus rhythm with no ST elevation on 12-lead per my reading. We will continue to monitor with continuous telemetry. Could be from withdrawal from methamphetamine. Place patient on Ativan for control. We will continue to follow 03/20/2019-no further episodes of SVT at this time. Continue to follow with telemetry. 03/21/2019-continue telemetry no further bouts of SVT at this time. (4) Withdrawal from recreational drug Is this a current diagnosis for this admission?: Yes Plan: 03/19/2019-continue to follow. I will place patient Ativan at this time for anxiety or other problems. Patient does start withdrawing heavily I will place him on other medications to help with his symptomology. 03/20/2019-no signs of DT at this time. 03/21/2019-no signs of DTs at this time. Continue to follow - Time Time Spent with patient: 15-24 minutes - Inpatient Certification Based on my medical assessment, after consideration of the patient's comorbidities, presenting symptoms, or acuity I expect that the services needed warrant INPATIENT care.: Yes I certify that my determination is in accordance with my understanding of Medicare's requirements for reasonable and necessary INPATIENT services [42 CFR 412.3e].: Yes Medical Necessity: Other - Monitor for SVT, and exercise stress test.
[2019-03-21] MEDS: ACETAMINOPHEN 325 MG TABLET PO PRN (10:44)
[2019-03-21] MEDS: METOPROLOL TARTRATE 25 MG TABLET PO SCH ×2 (10:44→21:07)
[2019-03-21] MEDS: ASPIRIN 81 MG TABLET, CHEWABLE PO SCH (10:44)
[2019-03-21 11:37] LABS: HEPATITS B SURFACE ANTIGEN Negative (Negative)
[2019-03-21 13:56] LABS: HEPATITIS C VIRUS ANTIBODY 2.3 s/co ratio (0.0-0.9)
[2019-03-21] MEDS: ATORVASTATIN CALCIUM 80 MG TABLET PO SCH (21:07)
[2019-03-22 05:00] LABS: ABSOLUTE BASOPHILS # (AUTO) 0.1 10^3/uL (0.0-0.2); ABSOLUTE EOSINOPHILS # (AUTO) 0.3 10^3/uL (0.0-0.6); ABSOLUTE LYMPHOCYTES (AUTO) 1.5 10^3/uL (0.5-4.7); ABSOLUTE MONOCYTES (AUTO) 0.7 10^3/uL (0.1-1.4); ABSOLUTE NEUT (AUTO) 5.1 10^3/uL (1.7-8.2); BASOPHILS % (AUTO) 0.9 % (0-2); EOSINOPHILS % (AUTO) 3.4 % (0-6); HEMATOCRIT 46.9 % (37.9-51.0); HEMOGLOBIN 15.8 g/dL (13.5-17.0); LYMPHOCYTES % (AUTO) 19.1 % (13-45); MEAN CORPUSCULAR HEMOGLOBIN 30.1 pg (27.0-33.4); MEAN CORPUSCULAR HGB CONC 33.8 g/dL (32.0-36.0); MEAN CORPUSCULAR VOLUME 89 fl (80-97); MONOCYTES % (AUTO) 9.6 % (3-13); PLATELET COUNT 241 10^3/uL (150-450); RED BLOOD COUNT 5.26 10^6/uL (4.35-5.55); RED CELL DISTRIBUTION WIDTH 14.1 % (11.5-14.0); TOTAL CELLS COUNTED % (AUTO) 100 %; WHITE BLOOD COUNT 7.6 10^3/uL (4.0-10.5)
[2019-03-22 05:15] LABS: ANION GAP 9 (5-19); BLOOD UREA NITROGEN 25 mg/dL (7-20); CALCIUM 8.9 mg/dL (8.4-10.2); CARBON DIOXIDE 29 mmol/L (22-30); CHLORIDE 98 mmol/L (98-107); GLUCOSE 79 mg/dL (75-110); POTASSIUM 4.8 mmol/L (3.6-5.0)
--- NOTE | 2019-03-22 08:54 | PDOC DISCHARGE SUMMARY ---
General - Admit/Disc Date/PCP Admission Date/Primary Care Provider: 03/19/19 14:51 DENNYS CLARKE PA-C Discharge Date: 03/22/19 - Discharge Diagnosis (1) NSTEMI (non-ST elevated myocardial infarction) Is this a current diagnosis for this admission?: Yes (2) Elevated LFTs Is this a current diagnosis for this admission?: Yes (3) SVT (supraventricular tachycardia) Is this a current diagnosis for this admission?: Yes (4) Withdrawal from recreational drug Is this a current diagnosis for this admission?: Yes - Additional Information Resuscitation Status: Full Code Discharge Diet: As Tolerated Discharge Activity: Activity As Tolerated Prescriptions: Atorvastatin Calcium [Lipitor 80 mg Tablet] 80 mg PO QHS #30 tablet Metoprolol Tartrate [Lopressor 25 mg Tablet] 12.5 mg PO Q12 #60 tablet Home Medications: Aspirin [Ecotrin 81 mg EC Tablet] 81 mg PO DAILY 03/19/19 Atorvastatin Calcium [Lipitor 80 mg Tablet] 80 mg PO QHS #30 tablet 03/22/19 Metoprolol Tartrate [Lopressor 25 mg Tablet] 12.5 mg PO Q12 #60 tablet 03/22/19 History of Present Illness History of Present Illness: CHRISTEL VELAZCO is a 63 year old male who presents the ER after waking this morning at 2 AM had a bout of chest pain momentarily that woke him out of sleep for which he went right back to sleep. Patient states he woke again at 7 AM with palpitations. Patient called EMS they arrived so he was in SVT on the mo nitor. Patient at that time performing vagal maneuver converted to sinus rhythm. Patient presented to the ER with initial troponin 0.2 subsequent at 0.5. Patient was given aspirin in the ER. He had no other treatment prior to arrival no true aggravating factors other the patient does do methamphetamines on a regular basis by injection. Hospital Course Hospital Course: 03/22/2019-patient admitted to medical surgical telemetry monitoring. Patient with echocardiogram and attempted exercise stress test. Echocardiogram showed no acute findings. I discussed his case with Dr. Du and he thinks this is mostly coronary artery disease. Will discharge patient home at this time on Lopressor 12.5 mg p.o. twice daily, Lipitor 80 mg p.o. daily, and a baby aspirin. Patient will follow-up with Dr. Macias this week and with his primary care as needed. Patient also been educated up using methamphetamine Physical Exam Vital Signs: Temp Pulse Resp BP Pulse Ox 97.7 F 63 16 108/83 99 03/21/19 23:00 03/22/19 02:00 03/21/19 23:00 03/21/19 23:00 03/21/19 23:00 Intake & Output 03/21/19 03/22/19 03/23/19 06:59 06:59 06:59 Intake Total 800 480 Balance 800 480 Weight 62.9 kg 63.2 kg General appearance: PRESENT: no acute distress, well-developed, well-nourished Head exam: PRESENT: atraumatic, normocephalic Eye exam: PRESENT: conjunctiva pink, EOMI, PERRLA. ABSENT: scleral icterus Ear exam: PRESENT: normal external ear exam Mouth exam: PRESENT: moist, tongue midline Neck exam: ABSENT: carotid bruit, JVD, lymphadenopathy, thyromegaly Respiratory exam: PRESENT: clear to auscultation felicia. ABSENT: rales, rhonchi, wheezes Cardiovascular exam: PRESENT: RRR. ABSENT: diastolic murmur, rubs, systolic murmur Pulses: PRESENT: normal dorsalis pedis pul Vascular exam: PRESENT: normal capillary refill GI/Abdominal exam: PRESENT: normal bowel sounds, soft. ABSENT: distended, guarding, mass, organolmegaly, rebound, tenderness Rectal exam: PRESENT: deferred Extremities exam: PRESENT: full ROM. ABSENT: calf tenderness, clubbing, pedal edema Neurological exam: PRESENT: alert, awake, oriented to person, oriented to place, oriented to time, oriented to situation, CN II-XII grossly intact. ABSENT: motor sensory deficit Psychiatric exam: PRESENT: appropriate affect, normal mood. ABSENT: homicidal ideation, suicidal ideation Skin exam: PRESENT: dry, intact, warm. ABSENT: cyanosis, rash Results Laboratory Results: 03/22/19 03:50 03/22/19 03:50 03/22/19 03/22/19 03:50 03:50 WBC 7.6 RBC 5.26 Hgb 15.8 Hct 46.9 MCV 89 MCH 30.1 MCHC 33.8 RDW 14.1 H Plt Count 241 Seg Neutrophils % 67.0 Lymphocytes % 19.1 Monocytes % 9.6 Eosinophils % 3.4 Basophils % 0.9 Absolute Neutrophils 5.1 Absolute Lymphocytes 1.5 Absolute Monocytes 0.7 Absolute Eosinophils 0.3 Absolute Basophils 0.1 Sodium 136.1 L Potassium 4.8 Chloride 98 Carbon Dioxide 29 Anion Gap 9 BUN 25 H Creatinine 1.07 Est GFR ( Amer) > 60 Est GFR (Non-Af Amer) > 60 Glucose 79 Calcium 8.9 03/19/19 03/19/19 03/19/19 08:20 08:20 12:45 Creatine Kinase 40 L CK-MB (CK-2) 1.33 Troponin I 0.291 0.578 NT-Pro-B Natriuret Pep 03/19/19 03/19/19 03/20/19 12:45 18:33 00:18 Creatine Kinase CK-MB (CK-2) Troponin I 0.425 0.258 NT-Pro-B Natriuret Pep 268 Impressions: Chest X-Ray 03/19/19 08:56 IMPRESSION: NO ACUTE RADIOGRAPHIC FINDING IN THE CHEST. Qualifiers - * PATIENT BEING DISCHARGED WITH ANY OF THE FOLLOWING DIAGNOSIS: No Acute Heart Failure - Is this a Heart Failure Patient?: No Plan Time Spent: Greater than 30 Minutes
[2019-03-22] MEDS: METOPROLOL TARTRATE 25 MG TABLET PO SCH ×2 (11:24→21:23)
[2019-03-22] MEDS: ASPIRIN 81 MG TABLET, CHEWABLE PO SCH (11:24)
[2019-03-22 12:29] LABS: POTASSIUM 4.1 mmol/L (3.6-5.0)
[2019-03-22] MEDS ORDERED: METOPROLOL TARTRATE 25 MG TABLET PO ONE (12:30)
--- NOTE | 2019-03-22 12:46 | PDOC PROGRESS REPORT ---
Subjective Progress Note for:: 03/22/19 Subjective:: 03/20/2019-no complaints this a.m. 03/21/2019-no complaints this a.m. 03/22/2019-initially was going to discharge patient is a.m. Upon nursing went into the room to discharge patient he had a 25 beat run of a flutter. After discussion with Dr. Macias we decide to keep patient for a stress test on Sunday. Reason For Visit: SVT,NON STEMI Physical Exam Vital Signs: Temp Pulse Resp BP Pulse Ox 97.6 F 95 17 117/64 100 03/22/19 07:40 03/22/19 07:40 03/22/19 07:40 03/22/19 07:40 03/22/19 07:40 Intake & Output 03/21/19 03/22/19 03/23/19 06:59 06:59 06:59 Intake Total 800 480 Balance 800 480 Weight 62.9 kg 63.2 kg General appearance: PRESENT: no acute distress, well-developed, well-nourished Head exam: PRESENT: atraumatic, normocephalic Eye exam: PRESENT: conjunctiva pink, EOMI, PERRLA. ABSENT: scleral icterus Ear exam: PRESENT: normal external ear exam Mouth exam: PRESENT: moist, tongue midline Neck exam: ABSENT: carotid bruit, JVD, lymphadenopathy, thyromegaly Respiratory exam: PRESENT: clear to auscultation felicia. ABSENT: rales, rhonchi, w heezes Cardiovascular exam: PRESENT: RRR. ABSENT: diastolic murmur, rubs, systolic murmur Pulses: PRESENT: normal dorsalis pedis pul Vascular exam: PRESENT: normal capillary refill GI/Abdominal exam: PRESENT: normal bowel sounds, soft. ABSENT: distended, guarding, mass, organolmegaly, rebound, tenderness Rectal exam: PRESENT: deferred Extremities exam: PRESENT: full ROM. ABSENT: calf tenderness, clubbing, pedal edema Neurological exam: PRESENT: alert, awake, oriented to person, oriented to place, oriented to time, oriented to situation, CN II-XII grossly intact. ABSENT: motor sensory deficit Psychiatric exam: PRESENT: appropriate affect, normal mood. ABSENT: homicidal ideation, suicidal ideation Skin exam: PRESENT: dry, intact, warm. ABSENT: cyanosis, rash Results Laboratory Results: 03/22/19 03:50 03/22/19 11:54 03/22/19 03/22/19 03/22/19 03:50 03:50 11:54 WBC 7.6 RBC 5.26 Hgb 15.8 Hct 46.9 MCV 89 MCH 30.1 MCHC 33.8 RDW 14.1 H Plt Count 241 Seg Neutrophils % 67.0 Lymphocytes % 19.1 Monocytes % 9.6 Eosinophils % 3.4 Basophils % 0.9 Absolute Neutrophils 5.1 Absolute Lymphocytes 1.5 Absolute Monocytes 0.7 Absolute Eosinophils 0.3 Absolute Basophils 0.1 Sodium 136.1 L Potassium 4.8 4.1 Chloride 98 Carbon Dioxide 29 Anion Gap 9 BUN 25 H Creatinine 1.07 Est GFR ( Amer) > 60 Est GFR (Non-Af Amer) > 60 Glucose 79 Calcium 8.9 Magnesium 2.2 03/19/19 03/19/19 03/19/19 08:20 08:20 12:45 Creatine Kinase 40 L CK-MB (CK-2) 1.33 Troponin I 0.291 0.578 NT-Pro-B Natriuret Pep 03/19/19 03/19/19 03/20/19 12:45 18:33 00:18 Creatine Kinase CK-MB (CK-2) Troponin I 0.425 0.258 NT-Pro-B Natriuret Pep 268 Impressions: Chest X-Ray 03/19/19 08:56 IMPRESSION: NO ACUTE RADIOGRAPHIC FINDING IN THE CHEST. Assessment and Plan - Diagnosis (1) NSTEMI (non-ST elevated myocardial infarction) Is this a current diagnosis for this admission?: Yes Plan: 03/19/2019-admit to medical surgical telemetry. Serial troponins. Aspirin, beta-blockers, high-dose Lipitor. Echocardiogram in a.m. and a exercise stress test with Cardiolite on Sunday. Patient was discussed with Dr. Du in consultation and Dr. Macias will see patient in follow through his hospital stay. 03/20/2019-no chest pain this a.m. still troponins until trending down. This elevation at the troponins did seem most likely secondary to SVT. Patient continues on aspirin, beta-blockers and high-dose Lipitor. He will obtain a echocardiogram this a.m. and exercise stress test tomorrow Cardiolite. Dr. Du to see in consultation. 03/21/2019-no chest pain no further bouts of SVT. Patient underwent echocardiogram yesterday shows a ejection fraction of 65%. Patient undergoing Cardiolite stress test today. We will continue to follow with cardiology. 03/21/2019-most likely not a non-STEMI. Patient will obtain a stress test on Sunday with Dr. Macias. Patient had 25 beat run of atrial flutter prior to discharge today. We will continue to follow (2) Elevated LFTs Is this a current diagnosis for this admission?: Yes Plan: 03/19/2019-I suspect this is hepatitis from illicit drug use. I will perform a hepatitis panel. 03/20/2019-awaiting hepatitis panel. 03/21/2019-hepatitis panel pending 03/22/2019-awaiting hepatitis panel. (3) SVT (supraventricular tachycardia) Is this a current diagnosis for this admission?: Yes (4) Withdrawal from recreational drug Is this a current diagnosis for this admission?: Yes Plan: 03/19/2019-continue to follow. I will place patient Ativan at this time for anxiety or other problems. Patient does start withdrawing heavily I will place him on other medications to help with his symptomology. 03/20/2019-no signs of DT at this time. 03/21/2019-no signs of DTs at this time. Continue to follow No signs of DTs at this time continue to follow. (5) Atrial flutter Is this a current diagnosis for this admission?: Yes Plan: Patient had a 25 beat run of atrial flutter on discharge. We will keep patient over the weekend extra stress test on Sunday. Dr. Macias is following. - Time Time Spent with patient: 15-24 minutes - Inpatient Certification Based on my medical assessment, after consideration of the patient's comorbidities, presenting symptoms, or acuity I expect that the services needed warrant INPATIENT care.: Yes I certify that my determination is in accordance with my understanding of Medicare's requirements for reasonable and necessary INPATIENT services [42 CFR 412.3e].: Yes Medical Necessity: Need For Continuous Telemetry Monitoring
[2019-03-22] MEDS: ACETAMINOPHEN 325 MG TABLET PO PRN (17:44)
[2019-03-22] MEDS: ATORVASTATIN CALCIUM 80 MG TABLET PO SCH (21:23)
[2019-03-23 05:16] LABS: HEMATOCRIT 44.5 % (37.9-51.0); MEAN CORPUSCULAR HGB CONC 33.7 g/dL (32.0-36.0); MEAN CORPUSCULAR VOLUME 89 fl (80-97); PLATELET COUNT 218 10^3/uL (150-450); RED CELL DISTRIBUTION WIDTH 14.1 % (11.5-14.0); WHITE BLOOD COUNT 6.8 10^3/uL (4.0-10.5)
[2019-03-23 05:45] LABS: ANION GAP 9 (5-19); BLOOD UREA NITROGEN 23 mg/dL (7-20); CALCIUM 8.8 mg/dL (8.4-10.2); CARBON DIOXIDE 25 mmol/L (22-30); CHLORIDE 99 mmol/L (98-107); GLUCOSE 88 mg/dL (75-110); POTASSIUM 4.6 mmol/L (3.6-5.0)
--- NOTE | 2019-03-23 09:20 | PDOC PROGRESS REPORT ---
Subjective Progress Note for:: 03/23/19 Subjective:: 03/20/2019-no complaints this a.m. 03/21/2019-no complaints this a.m. 03/22/2019-initially was going to discharge patient is a.m. Upon nursing went into the room to discharge patient he had a 25 beat run of a flutter. After discussion with Dr. Macias we decide to keep patient for a stress test on Sunday. 03/23/2019-no complaints this a.m. What looks like a 25 beat run of V. tach this was actually 25 beat run of atrial flutter. Patient will obtain exercise stress test with Cardiolite in a.m. per Dr. Macias. Reason For Visit: SVT,NON STEMI Physical Exam Vital Signs: Temp Pulse Resp BP Pulse Ox 97.4 F 64 18 118/72 98 03/23/19 07:00 03/23/19 07:00 03/23/19 07:00 03/23/19 07:00 03/23/19 07:00 Intake & Output 03/22/19 03/23/19 03/24/19 06:59 06:59 06:59 Intake Total 480 1100 Balance 480 1100 Weight 63.2 kg 63.4 kg General appearance: PRESENT: no acute distress, well-developed, well-nourished Head exam: PRESENT: atraumatic, normocephalic Eye exam: PRESENT: conjunctiva pink, EOMI, PERRLA. ABSENT: scleral icterus Ear exam: PRESENT: normal external ear exam Mouth exam: PRESENT: moist, tongue midline Neck exam: ABSENT: carotid bruit, JVD, lymphadenopathy, thyromegaly Respiratory exam: PRESENT: clear to auscultation felicia. ABSENT: rales, rhonchi, wheezes Cardiovascular exam: PRESENT: RRR. ABSENT: diastolic murmur, rubs, systolic murmur Pulses: PRESENT: normal dorsalis pedis pul Vascular exam: PRESENT: normal capillary refill GI/Abdominal exam: PRESENT: normal bowel sounds, soft. ABSENT: distended, guarding, mass, organolmegaly, rebound, tenderness Rectal exam: PRESENT: deferred Extremities exam: PRESENT: full ROM. ABSENT: calf tenderness, clubbing, pedal edema Neurological exam: PRESENT: alert, awake, oriented to person, oriented to place, oriented to time, oriented to situation, CN II-XII grossly intact. ABSENT: motor sensory deficit Psychiatric exam: PRESENT: appropriate affect, normal mood. ABSENT: homicidal ideation, suicidal ideation Skin exam: PRESENT: dry, intact, warm. ABSENT: cyanosis, rash Results Laboratory Results: 03/23/19 04:00 03/23/19 04:00 03/22/19 03/23/19 03/23/19 11:54 04:00 04:00 WBC 6.8 RBC 5.00 Hgb 15.0 Hct 44.5 MCV 89 MCH 30.0 MCHC 33.7 RDW 14.1 H Plt Count 218 Sodium 133.2 L Potassium 4.1 4.6 Chloride 99 Carbon Dioxide 25 Anion Gap 9 BUN 23 H Creatinine 0.87 Est GFR ( Amer) > 60 Est GFR (Non-Af Amer) > 60 Glucose 88 Calcium 8.8 Magnesium 2.2 03/19/19 03/19/19 03/19/19 08:20 08:20 12:45 Creatine Kinase 40 L CK-MB (CK-2) 1.33 Troponin I 0.291 0.578 NT-Pro-B Natriuret Pep 03/19/19 03/19/19 03/20/19 12:45 18:33 00:18 Creatine Kinase CK-MB (CK-2) Troponin I 0.425 0.258 NT-Pro-B Natriuret Pep 268 Impressions: Chest X-Ray 03/19/19 08:56 IMPRESSION: NO ACUTE RADIOGRAPHIC FINDING IN THE CHEST. Assessment and Plan - Diagnosis (1) NSTEMI (non-ST elevated myocardial infarction) Is this a current diagnosis for this admission?: Yes (2) Elevated LFTs Is this a current diagnosis for this admission?: Yes Plan: 03/19/2019-I suspect this is hepatitis from illicit drug use. I will perform a hepatitis panel. 03/20/2019-awaiting hepatitis panel. 03/21/2019-hepatitis panel pending 03/22/2019-awaiting hepatitis panel. 03/23/2019-patient has elevated hepatitis C antibodies. At this time we will get further hepatitis C serology including FibroSure and genotype. Patient most likely will need outpatient hepatitis C treatment. (3) SVT (supraventricular tachycardia) Is this a current diagnosis for this admission?: Yes (4) Withdrawal from recreational drug Is this a current diagnosis for this admission?: Yes (5) Atrial flutter Is this a current diagnosis for this admission?: Yes Plan: Patient had a 25 beat run of atrial flutter on discharge. We will keep patient over the weekend extra stress test on Sunday. Dr. Macias is following. 03/23/2019-no further bouts of atrial flutter at this time. Patient will undergo exercise stress test pain with Cardiolite per Dr. Macias. Await findings may change Medicare at that time. - Time Time Spent with patient: Less than 15 minutes - Inpatient Certification Based on my medical assessment, after consideration of the patient's comorbidities, presenting symptoms, or acuity I expect that the services needed warrant INPATIENT care.: Yes I certify that my determination is in accordance with my understanding of Medicare's requirements for reasonable and necessary INPATIENT services [42 CFR 412.3e].: Yes Medical Necessity: Other - Exercise stress test in the a.m.
[2019-03-23] MEDS: METOPROLOL TARTRATE 25 MG TABLET PO SCH ×2 (11:32→21:02)
[2019-03-23] MEDS: ASPIRIN 81 MG TABLET, CHEWABLE PO SCH (11:35)
--- NOTE | 2019-03-23 19:44 | PDOC CONSULTATION ---
Consultation-Blank Consultation: CARDIOLOGY CONSULTATION by Dr. Park Macias on 03/22/2019. Patient seen at 11 AM on 03/22/2019. REASON FOR CONSULTATION: Patient with symptomatic wide-complex tachycardia. CONSULT REQUESTING PHYSICIAN: Mr. Sunday Austin, nurse practitioner, [facility] HISTORY PRESENT ILLNESS: Patient is a 64-year-old male with known history of hypertension hyperlipidemia and history of cocaine and amphetamine use admitted with SVT and chest pain/tightness. His troponins were elevated. And subsequently trended down with treatment there is no recurrence of SVT. The patient was scheduled for a treadmill stress test, but this was not performed since the patient could not exercise on a treadmill. Plans were made to get the patient to doing outpatient IV Lexiscan Cardiolite stress test. His echocardiogram did show an apical septal and apical anteroseptal hypokinesis with a normal ejection fraction. The patient is to be discharged today when he had palpitations and the monitor showed wide-complex tachycardia at a rate of 160 bpm. This is most likely atrial flutter with aberrancy. It was self terminated. The patient's potassium and magnesium are within normal limits. There are no tracings of the patient's SVT when he came in to the ER. Past Medical History Cardiac Medical History: Reports: Hyperlipidema, Hypertension - hx of in past-no current meds Denies: Coronary Artery Disease, Myocardial Infarction Pulmonary Medical History: Reports: Pneumonia - 2004 Denies: Asthma, Bronchitis, Chronic Obstructive Pulmonary Disease (COPD) EENT Medical History: Reports: None Neurological Medical History: Denies: Seizures Endocrine Medical History: Reports: None Malignancy Medical History: Reports: None GI Medical History: Reports: Gastroesophageal Reflux Disease Musculoskeltal Medical History: Reports: Arthritis Skin Medical History: Reports: None Psychiatric Medical History: Reports: Depression Traumatic Medical History: Reports: None Hematology: Denies: Anemia Infectious Medical History: Reports: None Past Surgical History Past Surgical History: Reports: Appendectomy - hernia, Tonsillectomy, Other - Vasectomy, hernia repair Social History Lives with: Friend Smoking Status: Never Smoker Frequency of Alcohol Use: Social Hx Recreational Drug Use: Yes Drugs: Cocaine, Other - Methamphetamine Hx Prescription Drug Abuse: No - Advance Directive Resuscitation Status: Full Code. The patient's son is his surrogate healthcare decision maker. Family History: CAD, Other - Parkinson's Medication/Allergy Allergies/Adverse Reactions: No Known Allergies Review of Systems Constitutional: ABSENT: chills, fever(s), headache(s), weight gain, weight loss Eyes: ABSENT: visual disturbances Ears: ABSENT: hearing changes Cardiovascular: PRESENT: chest pain, palpitations Respiratory: ABSENT: cough, hemoptysis Gastrointestinal: ABSENT: abdominal pain, constipation, diarrhea, hematemesis, hematochezia, nausea, vomiting Genitourinary: ABSENT: dysuria, hematuria Musculoskeletal: ABSENT: joint swelling Integumentary: ABSENT: rash, wounds Neurological: ABSENT: abnormal gait, abnormal speech, confusion, dizziness, focal weakness, syncope Psychiatric: ABSENT: anxiety, depression, homidical ideation, suicidal ideation Endocrine: ABSENT: cold intolerance, heat intolerance, polydipsia, polyuria Hematologic/Lymphatic: ABSENT: easy bleeding, easy bruising PHYSICAL EXAMINATION: The patient is well-built and well-nourished. At present in no acute distress. Selected Entries 03/22/19 03/22/19 07:40 13:31 Temperature 97.6 F 97.8 F Temperature Oral Oral Source Pulse Rate 95 66 Respiratory 17 18 Rate Blood Pressure 117/64 98/59 L Blood Pressure 81 Mean BP Location Right Arm Right Arm BP Position Supine Supine O2 Sat by Pulse 100 100 Oximetry Oxygen Delivery Room Air Room Air Method General appearance: PRESENT: no acute distress, well-developed, well-nourished Head exam: PRESENT: atraumatic, normocephalic Eye exam: PRESENT: conjunctiva pink, EOMI, PERRLA. ABSENT: scleral icterus Ear exam: PRESENT: normal external ear exam Mouth exam: PRESENT: moist, tongue midline Neck exam: ABSENT: carotid bruit, JVD, lymphadenopathy, thyromegaly Respiratory exam: PRESENT: clear to auscultation felicia. ABSENT: rales, rhonchi, wheezes Cardiovascular exam: PRESENT: RRR. ABSENT: diastolic murmur, rubs, systolic murmur Pulses: PRESENT: normal dorsalis pedis pul Vascular exam: PRESENT: normal capillary refill GI/Abdominal exam: PRESENT: normal bowel sounds, soft. ABSENT: distended, guarding, mass, organolmegaly, rebound, tenderness Rectal exam: PRESENT: deferred Extremities exam: PRESENT: full ROM. ABSENT: calf tenderness, clubbing, pedal edema Neurological exam: PRESENT: alert, awake, oriented to person, oriented to place, oriented to time, oriented to situation, CN II-XII grossly intact. ABSENT: motor sensory deficit Psychiatric exam: PRESENT: appropriate affect, normal mood. ABSENT: homicidal ideation, suicidal ideation Skin exam: PRESENT: dry, intact, warm. ABSENT: cyanosis, rash Current Medications Generic Name Dose Route Start Last Admin Trade Name Freivonne PRN Reason Stop Dose Admin Acetaminophen 650 mg 03/19/19 14:19 03/22/19 17:44 Tylenol 325 Mg Tablet PO 04/18/19 14:18 650 mg Q4HP PRN Administration FOR PAIN Aspirin 81 mg 03/21/19 10:00 03/22/19 11:24 Aspirin 81 Mg Chewable Tablet PO 04/19/19 09:59 81 mg DAILY PRAMOD Administration Atorvastatin Calcium 80 mg 03/21/19 22:00 03/21/19 21:07 Lipitor 80 Mg Tablet PO 04/20/19 21:59 80 mg QHS PRAMOD Administration Lorazepam 2 mg 03/19/19 14:28 03/20/19 16:53 Ativan Inj 2 Mg/1 Ml Vial IV 03/26/19 14:27 2 mg Q4HP PRN Administration WITHDRAWAL SYMPTOMS Metoprolol Tartrate 25 mg 03/22/19 22:00 Lopressor 25 Mg Tablet PO 04/21/19 21:59 Q12 PRAMOD Ondansetron HCl 4 mg 03/19/19 14:19 Zofran Odt 4 Mg Tablet PO 04/18/19 14:18 Q4HP PRN FOR NAUSEA/VOMITING Oxycodone/Acetaminophen 1 tab 03/19/19 14:19 Percocet 5-325 Mg Tablet PO 03/26/19 14:18 Q4HP PRN FOR PAIN Zolpidem Tartrate 5 mg 03/19/19 14:19 Ambien 5 Mg Tablet PO 03/26/19 14:18 HSP PRN SLEEP OR INSOMNIA Discontinued Medications Generic Name Dose Route Start Last Admin Trade Name Freq PRN Reason Stop Dose Admin Aspirin 324 mg 03/19/19 08:55 03/19/19 09:20 Aspirin 81 Mg Chewable Tablet PO 03/19/19 08:56 Not Given NOW ONE Aspirin 81 mg 03/20/19 10:00 03/20/19 10:08 Aspirin 81 Mg Chewable Tablet PO 04/19/19 09:59 81 mg DAILY PRAMOD Administration Atorvastatin Calcium 80 mg 03/19/19 15:00 03/20/19 10:09 Lipitor 80 Mg Tablet PO 04/18/19 14:59 80 mg DAILY PRAMOD Administration Metoprolol Tartrate 12.5 mg 03/19/19 22:00 03/22/19 11:24 Lopressor 25 Mg Tablet PO 04/18/19 21:59 12.5 mg Q12 PRAMOD Administration Metoprolol Tartrate 12.5 mg 03/22/19 12:30 03/22/19 13:36 Lopressor 25 Mg Tablet PO 03/22/19 12:31 12.5 mg NOW ONE Administration Labs- Entire Visit 03/19/19 03/19/19 03/19/19 08:20 08:20 08:20 WBC 6.9 RBC 5.52 Hgb 16.5 Hct 49.0 MCV 89 MCH 29.9 MCHC 33.7 RDW 14.2 H Plt Count 243 Seg Neutrophils % 60.7 Lymphocytes % 22.6 Monocytes % 11.3 Eosinophils % 4.1 Basophils % 1.3 Absolute Neutrophils 4.2 Absolute Lymphocytes 1.6 Absolute Monocytes 0.8 Absolute Eosinophils 0.3 Absolute Basophils 0.1 PT INR APTT Sodium 136.3 L Potassium 4.4 Chloride 96 L Carbon Dioxide 29 Anion Gap 11 BUN 19 Creatinine 1.07 Est GFR ( Amer) > 60 Est GFR (Non-Af Amer) > 60 Glucose 86 Calcium 9.8 Magnesium Total Bilirubin 0.9 Direct Bilirubin 0.4 Neonat Total Bilirubin Not Reportable Neonat Direct Bilirubin Not Reportable Neonat Indirect Bili Not Reportable AST 265 H ALT 506 H Alkaline Phosphatase 132 H Creatine Kinase 40 L CK-MB (CK-2) 1.33 Troponin I 0.291 NT-Pro-B Natriuret Pep Total Protein 8.0 Albumin 4.6 Triglycerides Cholesterol LDL Cholesterol Direct VLDL Cholesterol HDL Cholesterol Lipase TSH Free T4 Urine Color Urine Appearance Urine pH Ur Specific Huntley Urine Protein Urine Glucose (UA) Urine Ketones Urine Blood Urine Nitrite Urine Bilirubin Urine Urobilinogen Ur Leukocyte Esterase Urine WBC (Auto) Urine RBC (Auto) Squamous Epi Cells Auto Urine Mucus (Auto) Urine Ascorbic Acid Urine Opiates Screen Urine Methadone Screen Ur Barbiturates Screen Ur Phencyclidine Scrn Ur Amphetamines Screen U Benzodiazepines Scrn Urine Cocaine Screen U Marijuana (THC) Screen Hepatitis A IgM Ab Hep Bs Antigen Hep B Core IgM Ab Hepatitis C Antibody 03/19/19 03/19/19 03/19/19 08:20 08:20 08:20 WBC RBC Hgb Hct MCV MCH MCHC RDW Plt Count Seg Neutrophils % Lymphocytes % Monocytes % Eosinophils % Basophils % Absolute Neutrophils Absolute Lymphocytes Absolute Monocytes Absolute Eosinophils Absolute Basophils PT 14.3 INR 1.10 APTT 34.5 Sodium Potassium Chloride Carbon Dioxide Anion Gap BUN Creatinine Est GFR ( Amer) Est GFR (Non-Af Amer) Glucose Calcium Magnesium Total Bilirubin Direct Bilirubin Neonat Total Bilirubin Neonat Direct Bilirubin Neonat Indirect Bili AST ALT Alkaline Phosphatase Creatine Kinase CK-MB (CK-2) Troponin I NT-Pro-B Natriuret Pep Total Protein Albumin Triglycerides Cholesterol LDL Cholesterol Direct VLDL Cholesterol HDL Cholesterol Lipase 82.5 TSH Free T4 Urine Color Urine Appearance Urine pH Ur Specific Hunt[place] Urine Protein Urine Glucose (UA) Urine Ketones Urine Blood Urine Nitrite Urine Bilirubin Urine Urobilinogen Ur Leukocyte Esterase Urine WBC (Auto) Urine RBC (Auto) Squamous Epi Cells Auto Urine Mucus (Auto) Urine Ascorbic Acid Urine Opiates Screen Urine Methadone Screen Ur Barbiturates Screen Ur Phencyclidine Scrn Ur Amphetamines Screen U Benzodiazepines Scrn Urine Cocaine Screen U Marijuana (THC) Screen Hepatitis A IgM Ab Negative Hep Bs Antigen Negative Hep B Core IgM Ab Negative Hepatitis C Antibody 2.3 H 03/19/19 03/19/19 03/19/19 10:15 10:15 12:45 WBC RBC Hgb Hct MCV MCH MCHC RDW Plt Count Seg Neutrophils % Lymphocytes % Monocytes % Eosinophils % Basophils % Absolute Neutrophils Absolute Lymphocytes Absolute Monocytes Absolute Eosinophils Absolute Basophils PT INR APTT Sodium Potassium Chloride Carbon Dioxide Anion Gap BUN Creatinine Est GFR ( Amer) Est GFR (Non-Af Amer) Glucose Calcium Magnesium Total Bilirubin Direct Bilirubin Neonat Total Bilirubin Neonat Direct Bilirubin Neonat Indirect Bili AST ALT Alkaline Phosphatase Creatine Kinase CK-MB (CK-2) Troponin I 0.578 NT-Pro-B Natriuret Pep Total Protein Albumin Triglycerides Cholesterol LDL Cholesterol Direct VLDL Cholesterol HDL Cholesterol Lipase TSH Free T4 Urine Color YELLOW Urine Appearance CLEAR Urine pH 7.0 Ur Specific Huntley 1.011 Urine Protein NEGATIVE Urine Glucose (UA) NEGATIVE Urine Ketones TRACE H Urine Blood NEGATIVE Urine Nitrite NEGATIVE Urine Bilirubin NEGATIVE Urine Urobilinogen 2.0 H Ur Leukocyte Esterase NEGATIVE Urine WBC (Auto) 1 Urine RBC (Auto) 0 Squamous Epi Cells Auto <1 Urine Mucus (Auto) RARE Urine Ascorbic Acid NEGATIVE Urine Opiates Screen NEGATIVE Urine Methadone Screen NEGATIVE Ur Barbiturates Screen NEGATIVE Ur Phencyclidine Scrn NEGATIVE Ur Amphetamines Screen U Benzodiazepines Scrn NEGATIVE Urine Cocaine Screen NEGATIVE U Marijuana (THC) Screen NEGATIVE Hepatitis A IgM Ab Hep Bs Antigen Hep B Core IgM Ab Hepatitis C Antibody 03/19/19 03/19/19 03/20/19 12:45 18:33 00:18 WBC RBC Hgb Hct MCV MCH MCHC RDW Plt Count Seg Neutrophils % Lymphocytes % Monocytes % Eosinophils % Basophils % Absolute Neutrophils Absolute Lymphocytes Absolute Monocytes Absolute Eosinophils Absolute Basophils PT INR APTT Sodium Potassium Chloride Carbon Dioxide Anion Gap BUN Creatinine Est GFR ( Amer) Est GFR (Non-Af Amer) Glucose Calcium Magnesium Total Bilirubin Direct Bilirubin Neonat Total Bilirubin Neonat Direct Bilirubin Neonat Indirect Bili AST ALT Alkaline Phosphatase Creatine Kinase CK-MB (CK-2) Troponin I 0.425 0.258 NT-Pro-B Natriuret Pep 268 Total Protein Albumin Triglycerides Cholesterol LDL Cholesterol Direct VLDL Cholesterol HDL Cholesterol Lipase TSH Free T4 Urine Color Urine Appearance Urine pH Ur Specific Hunt[place] Urine Protein Urine Glucose (UA) Urine Ketones Urine Blood Urine Nitrite Urine Bilirubin Urine Urobilinogen Ur Leukocyte Esterase Urine WBC (Auto) Urine RBC (Auto) Squamous Epi Cells Auto Urine Mucus (Auto) Urine Ascorbic Acid Urine Opiates Screen Urine Methadone Screen Ur Barbiturates Screen Ur Phencyclidine Scrn Ur Amphetamines Screen U Benzodiazepines Scrn Urine Cocaine Screen U Marijuana (THC) Screen Hepatitis A IgM Ab Hep Bs Antigen Hep B Core IgM Ab Hepatitis C Antibody 03/20/19 03/20/19 03/20/19 04:25 04:25 04:25 WBC 6.2 RBC 5.07 Hgb 15.2 Hct 45.1 MCV 89 MCH 29.9 MCHC 33.6 RDW 14.1 H Plt Count 202 Seg Neutrophils % 59.2 Lymphocytes % 23.2 Monocytes % 11.4 Eosinophils % 4.7 Basophils % 1.5 Absolute Neutrophils 3.7 Absolute Lymphocytes 1.4 Absolute Monocytes 0.7 Absolute Eosinophils 0.3 Absolute Basophils 0.1 PT INR APTT Sodium 135.5 L Potassium 4.4 Chloride 98 Carbon Dioxide 30 Anion Gap 8 BUN 17 Creatinine 1.09 Est GFR ( Amer) > 60 Est GFR (Non-Af Amer) > 60 Glucose 81 Calcium 9.0 Magnesium Total Bilirubin Direct Bilirubin Neonat Total Bilirubin Neonat Direct Bilirubin Neonat Indirect Bili AST ALT Alkaline Phosphatase Creatine Kinase CK-MB (CK-2) Troponin I NT-Pro-B Natriuret Pep Total Protein Albumin Triglycerides 68 Cholesterol 213.58 H LDL Cholesterol Direct 158 H VLDL Cholesterol 14.0 HDL Cholesterol 41 Lipase TSH 1.54 Free T4 1.60 Urine Color Urine Appearance Urine pH Ur Specific Hunt[place] Urine Protein Urine Glucose (UA) Urine Ketones Urine Blood Urine Nitrite Urine Bilirubin Urine Urobilinogen Ur Leukocyte Esterase Urine WBC (Auto) Urine RBC (Auto) Squamous Epi Cells Auto Urine Mucus (Auto) Urine Ascorbic Acid Urine Opiates Screen Urine Methadone Screen Ur Barbiturates Screen Ur Phencyclidine Scrn Ur Amphetamines Screen U Benzodiazepines Scrn Urine Cocaine Screen U Marijuana (THC) Screen Hepatitis A IgM Ab Hep Bs Antigen Hep B Core IgM Ab Hepatitis C Antibody 03/21/19 03/21/19 03/22/19 04:30 04:30 03:50 WBC 7.2 7.6 RBC 5.48 5.26 Hgb 16.5 15.8 Hct 48.7 46.9 MCV 89 89 MCH 30.1 30.1 MCHC 33.9 33.8 RDW 14.0 14.1 H Plt Count 204 241 Seg Neutrophils % 67.3 67.0 Lymphocytes % 19.0 19.1 Monocytes % 8.8 9.6 Eosinophils % 3.8 3.4 Basophils % 1.1 0.9 Absolute Neutrophils 4.8 5.1 Absolute Lymphocytes 1.4 1.5 Absolute Monocytes 0.6 0.7 Absolute Eosinophils 0.3 0.3 Absolute Basophils 0.1 0.1 PT INR APTT Sodium 134.8 L Potassium 5.1 H Chloride 99 Carbon Dioxide 27 Anion Gap 9 BUN 17 Creatinine 0.96 Est GFR ( Amer) > 60 Est GFR (Non-Af Amer) > 60 Glucose 78 Calcium 9.2 Magnesium Total Bilirubin Direct Bilirubin Neonat Total Bilirubin Neonat Direct Bilirubin Neonat Indirect Bili AST ALT Alkaline Phosphatase Creatine Kinase CK-MB (CK-2) Troponin I NT-Pro-B Natriuret Pep Total Protein Albumin Triglycerides Cholesterol LDL Cholesterol Direct VLDL Cholesterol HDL Cholesterol Lipase TSH Free T4 Urine Color Urine Appearance Urine pH Ur Specific [place] Urine Protein Urine Glucose (UA) Urine Ketones Urine Blood Urine Nitrite Urine Bilirubin Urine Urobilinogen Ur Leukocyte Esterase Urine WBC (Auto) Urine RBC (Auto) Squamous Epi Cells Auto Urine Mucus (Auto) Urine Ascorbic Acid Urine Opiates Screen Urine Methadone Screen Ur Barbiturates Screen Ur Phencyclidine Scrn Ur Amphetamines Screen U Benzodiazepines Scrn Urine Cocaine Screen U Marijuana (THC) Screen Hepatitis A IgM Ab Hep Bs Antigen Hep B Core IgM Ab Hepatitis C Antibody 03/22/19 03/22/19 03:50 11:54 WBC RBC Hgb Hct MCV MCH MCHC RDW Plt Count Seg Neutrophils % Lymphocytes % Monocytes % Eosinophils % Basophils % Absolute Neutrophils Absolute Lymphocytes Absolute Monocytes Absolute Eosinophils Absolute Basophils PT INR APTT Sodium 136.1 L Potassium 4.8 4.1 Chloride 98 Carbon Dioxide 29 Anion Gap 9 BUN 25 H Creatinine 1.07 Est GFR ( Amer) > 60 Est GFR (Non-Af Amer) > 60 Glucose 79 Calcium 8.9 Magnesium 2.2 Total Bilirubin Direct Bilirubin Neonat Total Bilirubin Neonat Direct Bilirubin Neonat Indirect Bili AST ALT Alkaline Phosphatase Creatine Kinase CK-MB (CK-2) Troponin I NT-Pro-B Natriuret Pep Total Protein Albumin Triglycerides Cholesterol LDL Cholesterol Direct VLDL Cholesterol HDL Cholesterol Lipase TSH Free T4 Urine Color Urine Appearance Urine pH Ur Specific [place] Urine Protein Urine Glucose (UA) Urine Ketones Urine Blood Urine Nitrite Urine Bilirubin Urine Urobilinogen Ur Leukocyte Esterase Urine WBC (Auto) Urine RBC (Auto) Squamous Epi Cells Auto Urine Mucus (Auto) Urine Ascorbic Acid Urine Opiates Screen Urine Methadone Screen Ur Barbiturates Screen Ur Phencyclidine Scrn Ur Amphetamines Screen U Benzodiazepines Scrn Urine Cocaine Screen U Marijuana (THC) Screen Hepatitis A IgM Ab Hep Bs Antigen Hep B Core IgM Ab Hepatitis C Antibody Chest X-Ray 03/19/19 08:56 IMPRESSION: NO ACUTE RADIOGRAPHIC FINDING IN THE CHEST. The patient's echocardiogram shows normal left ventricle systolic function of 65%. There is subtle hypokinesis of the apical IV septum and apical anteroseptal brantley. There is no significant valvular disease. IMPRESSION/RECOMMENDATION: 1. Wide-complex tachycardia: Most likely atrial flutter with rapid ventricular response. Decrease the patient's beta-barrett. 2. Non-ST relation NM: This has to be the diagnosis since there is wall motion of normality in the apical interventricular septum of the apical anteroseptal brantley on the echocardiogram. Continue current treatment. Including aspirin and beta-barrett. Will recommend scheduling the patient with IV Lexiscan Cardiolite stress test on Sunday. This will be discussed with the patient. 3. History of hypertension: Blood pressure is low normal. 4. Abnormal LFTs: Hepatitis work-up is being done. Avoid nephrotoxic drug. 5. History of cocaine and methamphetamine drug use: Drug abuse counseling has been done by the hospitalist provider 6. Hyperlipidemia: At present cannot use statins due to abnormal LFTs. Medications reviewed. Management plan discussed with the attending provider on the case. Medical decision making is of moderate to high complexity 60 minutes spent on this patient more than 50% of time spent in direct patient care. Will follow.
--- NOTE | 2019-03-23 19:52 | Progress Note ---
Provider Note Provider Note: CARDIOLOGY PROGRESS NOTE by Dr. Park Macias on 03/24/2019. SUBJECTIVE: There is no further recurrence of palpitations or SVT or wide- complex tachycardia. The patient denies any chest pain or discomfort. There is no shortness of breath. There is no PND orthopnea. There is no arrhythmia seen on the monitor. Physical EXAMINATION: The patient is well-built and well-nourished at present in no acute distress. Selected Entries 03/23/19 15:00 Temperature 98.7 F Temperature Oral Source Pulse Rate 81 Respiratory 17 Rate Blood Pressure 113/61 [Left Upper Arm ] Blood Pressure 78 Mean [Left Upper Arm] Blood Pressure Supine Position [Left Upper Arm] O2 Sat by Pulse 97 Oximetry Oxygen Delivery Room Air Method ( includes room air) General appearance: PRESENT: no acute distress, well-developed, well-nourished Head exam: PRESENT: atraumatic, normocephalic Eye exam: PRESENT: conjunctiva pink, EOMI, PERRLA. ABSENT: scleral icterus Ear exam: PRESENT: normal external ear exam Mouth exam: PRESENT: moist, tongue midline Neck exam: ABSENT: carotid bruit, JVD, lymphadenopathy, thyromegaly Respiratory exam: PRESENT: clear to auscultation felicia. ABSENT: rales, rhonchi, wheezes Cardiovascular exam: PRESENT: RRR. ABSENT: diastolic murmur, rubs, systolic murmur Pulses: PRESENT: normal dorsalis pedis pul Vascular exam: PRESENT: normal capillary refill GI/Abdominal exam: PRESENT: normal bowel sounds, soft. ABSENT: distended, guarding, mass, organolmegaly, rebound, tenderness Rectal exam: PRESENT: deferred Extremities exam: PRESENT: full ROM. ABSENT: calf tenderness, clubbing, pedal edema Neurological exam: PRESENT: alert, awake, oriented to person, oriented to place, oriented to time, oriented to situation, CN II-XII grossly intact. ABSENT: motor sensory deficit Psychiatric exam: PRESENT: appropriate affect, normal mood. ABSENT: homicidal ideation, suicidal ideation Skin exam: PRESENT: dry, intact, warm. ABSENT: cyanosis, rash IMPRESSION/RECOMMENDATION: 1. Wide-complex tachycardia: Most likely atrial flutter with rapid ventricular response, with aberrancy. Continue the patient's beta-barrett. 2. Non-ST relavation NV: This has to be the diagnosis since there is wall motion of normality in the apical interventricular septum of the apical anteroseptal brantley on the echocardiogram. Continue current treatment. Including aspirin and beta-barrett. The patient has been scheduled for a IV Lexiscan Cardiolite stress test for tomorrow. 3. History of hypertension: Blood pressure is low normal. 4. Abnormal LFTs: Will stop the patient's statin. 5. History of cocaine and methamphetamine drug use: Drug abuse counseling has been done by the hospitalist provider 6. Hyperlipidemia: At present cannot use statins due to abnormal LFTs, hence this is been discontinued.. Medications reviewed. Medical decision making is of moderate complexity. Management plan discussed with attending provider on the case. 40 minutes spent on this patient more than 50% of time spent in direct patient care.
[2019-03-23] MEDS ORDERED: ADENOSINE INJ/PF 6 MG/2 ML SDV IV ONE ×4 (19:59→20:30)
[2019-03-24] MEDS: METOPROLOL TARTRATE 25 MG TABLET PO SCH (09:44)
--- NOTE | 2019-03-24 09:47 | PDOC PROGRESS REPORT ---
Subjective Progress Note for:: 03/24/19 Subjective:: 03/20/2019-no complaints this a.m. 03/21/2019-no complaints this a.m. 03/22/2019-initially was going to discharge patient is a.m. Upon nursing went into the room to discharge patient he had a 25 beat run of a flutter. After discussion with Dr. Macias we decide to keep patient for a stress test on Sunday. 03/23/2019-no complaints this a.m. What looks like a 25 beat run of V. tach this was actually 25 beat run of atrial flutter. Patient will obtain exercise stress test with Cardiolite in a.m. per Dr. Macias. 03/24/2019-no complaints at this time. Patient had a round of atrial flutter with rapid ventricular response and aberrancy last evening received adenosine x2. Dr. Macias has seen the strips and agrees. Reason For Visit: SVT,NON STEMI Physical Exam Vital Signs: Temp Pulse Resp BP Pulse Ox 98.3 F 75 16 118/70 96 03/24/19 08:30 03/24/19 08:30 03/24/19 08:30 03/24/19 08:30 03/24/19 08:30 Intake & Output 03/23/19 03/24/19 03/25/19 06:59 06:59 06:59 Intake Total 1100 1370 Balance 1100 1370 Weight 63.4 kg 65 kg General appearance: PRESENT: no acute distress, well-developed, well-nourished Head exam: PRESENT: atraumatic, normocephalic Eye exam: PRESENT: conjunctiva pink, EOMI, PERRLA. ABSENT: scleral icterus Ear exam: PRESENT: normal external ear exam Mouth exam: PRESENT: moist, tongue midline Neck exam: ABSENT: carotid bruit, JVD, lymphadenopathy, thyromegaly Respiratory exam: PRESENT: clear to auscultation felicia. ABSENT: rales, rhonchi, wheezes Cardiovascular exam: PRESENT: RRR. ABSENT: diastolic murmur, rubs, systolic murmur Pulses: PRESENT: normal dorsalis pedis pul Vascular exam: PRESENT: normal capillary refill GI/Abdominal exam: PRESENT: normal bowel sounds, soft. ABSENT: distended, guarding, mass, organolmegaly, rebound, tenderness Rectal exam: PRESENT: deferred Extremities exam: PRESENT: full ROM. ABSENT: calf tenderness, clubbing, pedal edema Neurological exam: PRESENT: alert, awake, oriented to person, oriented to place, oriented to time, oriented to situation, CN II-XII grossly intact. ABSENT: motor sensory deficit Psychiatric exam: PRESENT: appropriate affect, normal mood. ABSENT: homicidal ideation, suicidal ideation Skin exam: PRESENT: dry, intact, warm. ABSENT: cyanosis, rash Results Laboratory Results: 03/23/19 04:00 03/23/19 04:00 03/19/19 03/19/19 03/19/19 08:20 08:20 12:45 Creatine Kinase 40 L CK-MB (CK-2) 1.33 Troponin I 0.291 0.578 NT-Pro-B Natriuret Pep 03/19/19 03/19/19 03/20/19 12:45 18:33 00:18 Creatine Kinase CK-MB (CK-2) Troponin I 0.425 0.258 NT-Pro-B Natriuret Pep 268 Impressions: Chest X-Ray 03/19/19 08:56 IMPRESSION: NO ACUTE RADIOGRAPHIC FINDING IN THE CHEST. Assessment and Plan - Diagnosis (1) NSTEMI (non-ST elevated myocardial infarction) Is this a current diagnosis for this admission?: Yes Plan: 03/19/2019-admit to medical surgical telemetry. Serial troponins. Aspirin, beta-blockers, high-dose Lipitor. Echocardiogram in a.m. and a exercise stress test with Cardiolite on Sunday. Patient was discussed with Dr. Du in consultation and Dr. Macias will see patient in follow through his hospital stay. 03/20/2019-no chest pain this a.m. still troponins until trending down. This el evation at the troponins did seem most likely secondary to SVT. Patient continues on aspirin, beta-blockers and high-dose Lipitor. He will obtain a echocardiogram this a.m. and exercise stress test tomorrow Cardiolite. Dr. Du to see in consultation. 03/21/2019-no chest pain no further bouts of SVT. Patient underwent echocardiogram yesterday shows a ejection fraction of 65%. Patient undergoing Cardiolite stress test today. We will continue to follow with cardiology. 03/21/2019-most likely not a non-STEMI. Patient will obtain a stress test on Sunday with Dr. Macias. Patient had 25 beat run of atrial flutter prior to discharge today. We will continue to follow (2) Elevated LFTs Is this a current diagnosis for this admission?: Yes Plan: 03/19/2019-I suspect this is hepatitis from illicit drug use. I will perform a hepatitis panel. 03/20/2019-awaiting hepatitis panel. 03/21/2019-hepatitis panel pending 03/22/2019-awaiting hepatitis panel. 03/23/2019-patient has elevated hepatitis C antibodies. At this time we will get further hepatitis C serology including FibroSure and genotype. Patient most likely will need outpatient hepatitis C treatment. 03/24/2019-awaiting hepatitis panel. Statin is being held at this time. (3) SVT (supraventricular tachycardia) Is this a current diagnosis for this admission?: Yes Plan: 03/19/2019-short bout of SVT this a.m. No other arrhythmias at this time. Patient sinus rhythm with no ST elevation on 12-lead per my reading. We will continue to monitor with continuous telemetry. Could be from withdrawal from methamphetamine. Place patient on Ativan for control. We will continue to follow 03/20/2019-no further episodes of SVT at this time. Continue to follow with telemetry. 03/21/2019-continue telemetry no further bouts of SVT at this time. 03/24/2019-patient had another round of what look like SVT last night. This was actually atrial flutter with wide-complex RVR and aberrancy. The patient got a venous and 2 times. Patient is still set for stress test in the a.m. with Dr. Macias. (4) Withdrawal from recreational drug Is this a current diagnosis for this admission?: Yes Plan: 03/19/2019-continue to follow. I will place patient Ativan at this time for anxiety or other problems. Patient does start withdrawing heavily I will place him on other medications to help with his symptomology. 03/20/2019-no signs of DT at this time. 03/21/2019-no signs of DTs at this time. Continue to follow No signs of DTs at this time continue to follow. 03/24/2018-no signs of withdrawal at this time. (5) Atrial flutter Is this a current diagnosis for this admission?: Yes Plan: Patient had a 25 beat run of atrial flutter on discharge. We will keep patient over the weekend extra stress test on Sunday. Dr. Macias is following. 03/23/2019-no further bouts of atrial flutter at this time. Patient will undergo exercise stress test pain with Cardiolite per Dr. Macias. Await findings may change Medicare at that time. 03/24/2019-patient with another round of atrial flutter with RVR wide-complex aberrancy last evening. Patient got 2 rounds of edema is in. Patient saw by Dr. Macias and he agrees with atrial flutter. Will await stress test in a.m. Dr. Macias patient may require consultation for possible ablation therapy. - Time Time Spent with patient: 15-24 minutes - Inpatient Certification Based on my medical assessment, after consideration of the patient's comorbidities, presenting symptoms, or acuity I expect that the services needed warrant INPATIENT care.: Yes I certify that my determination is in accordance with my understanding of Medicare's requirements for reasonable and necessary INPATIENT services [42 CFR 412.3e].: Yes Medical Necessity: Other - Continue cardiac monitoring, stress test in a.m.
[2019-03-24] MEDS: ASPIRIN 81 MG TABLET, CHEWABLE PO SCH (09:54)
[2019-03-24] MEDS ORDERED: METOPROLOL TARTRATE PF/INJ 5 MG/5 ML SDV IV ONE ×2 (10:41→13:00)
[2019-03-24 12:42] VITALS: BP 122/70
--- NOTE | 2019-03-24 13:08 | PDOC TRANSFER SUMMARY ---
General Admission Date/PCP: 03/19/19 14:51 DENNYS CLARKE PA-C Transfer Date: 03/24/19 Accepting Facility: [facility] Resuscitation Status: Full Code - Transfer Diagnosis (1) NSTEMI (non-ST elevated myocardial infarction) Is this a current diagnosis for this admission?: Yes (2) Elevated LFTs Is this a current diagnosis for this admission?: Yes (3) SVT (supraventricular tachycardia) Is this a current diagnosis for this admission?: Yes (4) Withdrawal from recreational drug Is this a current diagnosis for this admission?: Yes (5) Atrial flutter Is this a current diagnosis for this admission?: Yes - Transfer Medications Home Medications: Aspirin [Ecotrin 81 mg EC Tablet] 81 mg PO DAILY 03/19/19 Transfer Medications: Current Medications Acetaminophen (Tylenol 325 Mg Tablet) 650 mg PO Q4HP PRN PRN Reason: FOR PAIN Stop: 04/18/19 14:18 Last Admin: 03/22/19 17:44 Dose: 650 mg Documented by: Aspirin (Aspirin 81 Mg Chewable Tablet) 81 mg PO DAILY PRAMOD Stop: 04/19/19 09:59 Last Admin: 03/24/19 09:54 Dose: 81 mg Documented by: Lorazepam (Ativan Inj 2 Mg/1 Ml Vial) 2 mg IV Q4HP PRN PRN Reason: WITHDRAWAL SYMPTOMS Stop: 03/26/19 14:27 Last Admin: 03/20/19 16:53 Dose: 2 mg Documented by: Ondansetron HCl (Zofran Odt 4 Mg Tablet) 4 mg PO Q4HP PRN PRN Reason: FOR NAUSEA/VOMITING Stop: 04/18/19 14:18 Oxycodone/Acetaminophen (Percocet 5-325 Mg Tablet) 1 tab PO Q4HP PRN PRN Reason: FOR PAIN Stop: 03/26/19 14:18 Zolpidem Tartrate (Ambien 5 Mg Tablet) 5 mg PO HSP PRN PRN Reason: SLEEP OR INSOMNIA Stop: 03/26/19 14:18 - Allergies Allergies/Adverse Reactions: No Known Allergies Allergy (Verified 03/19/19 08:54) - Diet/Activity Discharge Diet: As Tolerated Discharge Activity: Activity As Tolerated Hospital Course Hospital Course: Mr. 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 Patient had a slight bump in his creatinine which we can attribute to this SVT. Patient underwent echocardiogram which is normal was will be discharged home Sunday and had did not have a ride. Sunday patient had a another run of what looked like SVT but turned out to be atrial fibrillation with RVR and aberrancy. Patient was to obtain a exercise stress test this a.m. but last night underwent another episode of this atrial flutter with RVR and aberrancy was given 2 doses of adenosine. This morning patient had 3 runs of this atrial flutter with aberrancy with RVR which has resolved with vagal maneuver. At this time I gave patient 5 mg IV Lopressor and patient accepted in transfer to [facility] cardiology by Dr. Marques. Patient will be transferred via ALS. Patient to undergo ablation Physical Exam Vital Signs: Temp Pulse Resp BP Pulse Ox 97.4 F 75 16 122/70 99 03/24/19 12:26 03/24/19 12:26 03/24/19 12:26 03/24/19 12:26 03/24/19 12:26 Intake & Output 03/23/19 03/24/19 03/25/19 06:59 06:59 06:59 Intake Total 1100 1370 480 Balance 1100 1370 480 Weight 63.4 kg 65 kg General appearance: PRESENT: no acute distress, well-developed, well-nourished Head exam: PRESENT: atraumatic, normocephalic Eye exam: PRESENT: conjunctiva pink, EOMI, PERRLA. ABSENT: scleral icterus Ear exam: PRESENT: normal external ear exam Mouth exam: PRESENT: moist, tongue midline Neck exam: ABSENT: carotid bruit, JVD, lymphadenopathy, thyromegaly Respiratory exam: PRESENT: clear to auscultation felicia. ABSENT: rales, rhonchi, wheezes Cardiovascular exam: PRESENT: RRR. ABSENT: diastolic murmur, rubs, systolic murmur Pulses: PRESENT: normal dorsalis pedis pul Vascular exam: PRESENT: normal capillary refill GI/Abdominal exam: PRESENT: normal bowel sounds, soft. ABSENT: distended, guarding, mass, organolmegaly, rebound, tenderness Rectal exam: PRESENT: deferred Extremities exam: PRESENT: full ROM. ABSENT: calf tenderness, clubbing, pedal edema Neurological exam: PRESENT: alert, awake, oriented to person, oriented to place, oriented to time, oriented to situation, CN II-XII grossly intact. ABSENT: motor sensory deficit Psychiatric exam: PRESENT: appropriate affect, normal mood. ABSENT: homicidal ideation, suicidal ideation Skin exam: PRESENT: dry, intact, warm. ABSENT: cyanosis, rash Results Laboratory Results: 03/23/19 04:00 03/23/19 04:00 03/19/19 03/19/19 03/19/19 08:20 08:20 12:45 Creatine Kinase 40 L CK-MB (CK-2) 1.33 Troponin I 0.291 0.578 NT-Pro-B Natriuret Pep 03/19/19 03/19/19 03/20/19 12:45 18:33 00:18 Creatine Kinase CK-MB (CK-2) Troponin I 0.425 0.258 NT-Pro-B Natriuret Pep 268 03/24/19 09:08 Creatine Kinase CK-MB (CK-2) Troponin I < 0.012 NT-Pro-B Natriuret Pep Impressions: Chest X-Ray 03/19/19 08:56 IMPRESSION: NO ACUTE RADIOGRAPHIC FINDING IN THE CHEST. Plan Time Spent: Greater than 30 Minutes
[2019-03-26 06:37] LABS: HCV FIBROSURE ALT P5P 357 IU/L (0-55); HCV FIBROSURE HAPTOGLOBIN 90 mg/dL (34-200); NECROINFLAM ACTIVITY GRADE A3-Severe activity (.); NECROINFLAMM ACTIVITY SCORE 0.93 (0.00-0.17)
== END 2019-03-24 15:30 | disposition short-term general hospital (02) | DRG 281 ==
LOC: ER 08:49 → OBSVTOIN 14:51 → EH 14:51 → 4N 19:18 → 3N 03-24 12:46
PROVIDERS: ADMIT Internal Medicine; ATTEND Internal Medicine
DX: I21.4 Non-ST elevation (NSTEMI) myocardial infarction (principal); I47.1 Supraventricular tachycardia; I48.92 Unspecified atrial flutter; F15.93 Other stimulant use, unspecified with withdrawal; E78.5 Hyperlipidemia, unspecified; I10 Essential (primary) hypertension; K21.9 Gastro-esophageal reflux disease without esophagitis; F32.9 Major depressive disorder, single episode, unspecified; R94.5 Abnormal results of liver function studies; R76.8 Other specified abnormal immunological findings in serum; M19.90 Unspecified osteoarthritis, unspecified site; Z90.49 Acquired absence of other specified parts of digestive tract
CPT/HCPCS: 36415; 71045; 80048; 80053; 80061; 80074; 80307; 81001; 81270; 82172; 82247; 82550; 82553; 82977; 83010; 83690; 83735; 83880; 83883; 84132; 84439; 84443; 84460; 84484; 85025; 85027; 85610; 85730; 87521; 93005; 93010; 93306; 99285; J0153; J2060; J3490

== ENCOUNTER 2019-11-15 21:16 | Observation (INO) | payer MEDICARE ==
[2019-11-15] MEDS ORDERED: NITROGLYCERIN 2% OINTMENT 1 GM PACKET TP ONE (21:39)
--- NOTE | 2019-11-15 21:40 | ER Document Report ---
ED General - General Chief Complaint: Chest Pain Stated Complaint: CHEST PAIN Time Seen by Provider: 11/15/19 21:27 Primary Care Provider: DENNYS CLARKE PA-C [Primary Care Provider] - Follow up as needed Mode of Arrival: Medic Information source: Patient Notes: 64-year-old man presents to the emergency department with a complaint of chest pain. States he awoke at approximately 5 PM this afternoon developed severe substernal chest pain nonradiating associated with dizziness and shortness of breath. He has had a history of chest pain associated with tachyarrhythmia approximately 5 years ago, he underwent ablation procedure and has been stable since that time. He denies stent, known coronary artery disease or treatment for the same. EMS was called, the patient was given sublingual nitroglycerin spray x2 aspirin 324 mg and he was transported to the hospital for further evaluation and treatment. Risk factors include hypertension, hypercholesterolem ia/dyslipidemia, male gender. TRAVEL OUTSIDE OF THE [place] IN LAST 30 DAYS: No - Related Data Allergies/Adverse Reactions: No Known Allergies Allergy (Verified 03/19/19 08:54) Past Medical History - Social History Smoking Status: Unknown if Ever Smoked Family History: CAD, Other - Parkinson's - Past Medical History Cardiac Medical History: Reports: Hx Hypercholesterolemia, Hx Hypertension - hx of in past-no current meds Denies: Hx Coronary Artery Disease, Hx Heart Attack Pulmonary Medical History: Reports: Hx Pneumonia - 2004 Denies: Hx Asthma, Hx Bronchitis, Hx COPD Neurological Medical History: Reports: Hx Cerebrovascular Accident. Denies: Hx Seizures Renal/ Medical History: Reports: Hx Kidney Stones. Denies: Hx Peritoneal Dialysis GI Medical History: Reports: Hx Gastroesophageal Reflux Disease Musculoskeletal Medical History: Reports Hx Arthritis Psychiatric Medical History: Reports: Hx Depression Past Surgical History: Reports: Hx Abdominal Surgery - hernia repair, Hx Appendectomy - hernia, Hx Genitourinary Surgery - vasectomy, Hx Tonsillectomy, Other - Vasectomy, hernia repair - Immunizations Hx Diphtheria, Pertussis, Tetanus Vaccination: Yes Review of Systems - Review of Systems Notes: Constitutional: Negative for fever. HENT: Negative for sore throat. Eyes: Negative for visual changes. Cardiovascular: + Chest pain. Respiratory: + Shortness of breath. Gastrointestinal: Negative for abdominal pain, vomiting or diarrhea. Genitourinary: Negative for dysuria. Musculoskeletal: Negative for back pain. Skin: Negative for rash. Neurological: Negative for headaches, weakness or numbness. 10 point ROS negative except as marked above and in HPI. Physical Exam - Vital signs Vitals: Resp Pulse Ox 19 98 11/15/19 21:24 11/15/19 21:24 - Notes Notes: PHYSICAL EXAMINATION: Physical Exam: General: Well-nourished well-developed 64-year-old man + with chest pain. HEENT: NC/AT, pupils equal round and reactive to light, MM moist,nares clear, oropharynx clear, airway patent Neck: supple, no adenopathy, no masses. Good range of motion Lungs: clear, no wheezing, no rales, no rhonchi CVS: Regular rate and rhythm no murmur gallop or rub, no reproducible chest wall pain Abdomen: Soft, active, nontender, no masses, no hepatosplenomegaly Ext: No edema, clubbing or cyanosis. Neuro: Alert and responsive, moving all 4 extremities on command, cranial nerves intact, no focal findings Skin: Intact no open lesions, no rash PSYCH: Normal mood, normal affect. Course - Re-evaluation Re-evalutation: 11/15/19 23:29 Patient's symptoms were prolonged and concerning, substernal chest pain with associated shortness of breath and dizziness. Relief of pain with sublingual nitroglycerin and aspirin. Approximately 3-1/2 hours of symptoms. Initial EKG reveals no hyperacute changes, no obvious ischemic changes. Chest x-ray negative and first troponin was negative. I discussed the patient with the h ospitalist, a repeat troponin at 12 midnight will be performed, if there is a significant increase he has suggested that the patient be transferred for cardiology evaluation. I have explained this plan to the patient and he is in agreement. 11/16/19 02:10 A second troponin was performed on the patient which is negative. I discussed the patient with the hospitalist, patient will be brought into the hospital as a telemetry observation and further evaluation and stratification for his prolonged chest pain episode. - Vital Signs Vital signs: Temp Pulse Resp BP Pulse Ox 98.1 F 87 18 90/66 L 98 11/16/19 01:32 11/15/19 21:28 11/16/19 01:32 11/16/19 01:01 11/16/19 01:01 - Laboratory Result Diagrams: 11/15/19 21:27 11/15/19 21:27 Laboratory results interpreted by me: 11/15/19 11/15/19 11/15/19 21:27 21:27 21:27 RDW 14.3 H Sodium 135.4 L ALT 54 H NT-Pro-B Natriuret Pep 301 H I have reviewed laboratory data and used this information for the treatment decisions regarding the patient. - Diagnostic Test Radiology reviewed: Image reviewed, Reports reviewed - Chest x-ray: No acute cardiopulmonary findings. - EKG Interpretation by Me EKG shows normal: Sinus rhythm - Rate of 67, borderline left axis deviation, no acute ST or T wave abnormalities noted. Discharge - Discharge Clinical Impression: Chest pain Qualifiers: Chest pain type: unspecified Qualified Code(s): R07.9 - Chest pain, unspecified Condition: Good Disposition: ADMITTED OBSERVATION Admitting Provider: Mary (Hospitalist) Unit Admitted: Telemetry Referrals: DENNYS CLARKE PA-C [Primary Care Provider] - Follow up as needed
[2019-11-15 21:54] LABS: HEMATOCRIT 43.4 % (37.9-51.0); HEMOGLOBIN 14.8 g/dL (13.5-17.0); MEAN CORPUSCULAR HEMOGLOBIN 31.3 pg (27.0-33.4); MEAN CORPUSCULAR VOLUME 92 fl (80-97); PLATELET COUNT 168 10^3/uL (150-450); RED BLOOD COUNT 4.72 10^6/uL (4.35-5.55); RED CELL DISTRIBUTION WIDTH 14.3 % (11.5-14.0); WHITE BLOOD COUNT 9.5 10^3/uL (4.0-10.5)
[2019-11-15 22:08] LABS: ALBUMIN 3.5 g/dL (3.5-5.0); ALKALINE PHOSPHATASE 81 U/L (38-126); ANION GAP 6 (5-19); ASPARTATE AMINO TRANSFERASE 36 U/L (17-59); BILIRUBIN,DIRECT 0.2 mg/dL (0.0-0.4); BILIRUBIN,TOTAL 0.5 mg/dL (0.2-1.3); BLOOD UREA NITROGEN 14 mg/dL (7-20); CALCIUM 8.4 mg/dL (8.4-10.2); CARBON DIOXIDE 30 mmol/L (22-30); CHLORIDE 99 mmol/L (98-107); GLUCOSE 89 mg/dL (75-110); TOTAL PROTEIN 7.1 g/dL (6.3-8.2)
[2019-11-15 22:17] LABS: ABSOLUTE LYMPHOCYTES# (MANUAL) 2.4 10^3/uL (0.5-4.7); ABSOLUTE MONOCYTES # (MANUAL) 1.1 10^3/uL (0.1-1.4); BASOPHILS % (MANUAL) 0 % (0-2); EOSINOPHILS % (MANUAL) 0 % (0-6); LYMPHOCYTES % (MANUAL) 23 % (13-45); MONOCYTES % (MANUAL) 12 % (3-13); NUCLEATED RED BLOOD CELLS 2 /100 WBC (0); SEGMENTED NEUTROPHILS % (MAN) 63 % (42-78); TOTAL CELLS COUNTED 100
[2019-11-15 22:18] LABS: PLATELET COMMENT ADEQUATE; RBC MORPHOLOGY COMMENT NORMO-CYTIC/CHROMIC; TOXIC GRANULATION SLIGHT; TOXIC VACUOLATION PRESENT
[2019-11-15 22:27] LABS: NT PRO BNP 301 pg/mL (<125)
[2019-11-15 22:29] LABS: TROPONIN I < 0.012 ng/mL
--- NOTE | 2019-11-15 22:40 | RADIOLOGY REPORT (SQ) ---
EXAM DESCRIPTION: XR CHEST 1 VIEW COMPLETED DATE/TME: 11/15/2019 21:27 CLINICAL HISTORY: 64 years, Male, chest pain COMPARISON: 03/04/2017 chest NUMBER OF VIEWS: 1 TECHNIQUE: Portable chest LIMITATIONS: None. FINDINGS: The heart size is normal. Osteopenia. Mild atheromatous change thoracic aorta. Lungs clear. No pneumothorax IMPRESSION: No acute cardiopulmonary process copyright 2010 [id number]- All Rights Reserved
[2019-11-16 01:06] LABS: URINE AMPHETAMINES SCREEN NEGATIVE; URINE BARBITURATES SCREEN NEGATIVE; URINE BENZODIAZEPINES SCREEN NEGATIVE; URINE COCAINE SCREEN NEGATIVE; URINE MARIJUANA (THC) SCREEN NEGATIVE; URINE METHADONE SCREEN NEGATIVE; URINE PHENCYCLIDINE SCREEN NEGATIVE
[2019-11-16] MEDS: NITROGLYCERIN 2% OINTMENT 1 GM PACKET TP SCH ×5 (02:38→23:38)
[2019-11-16] MEDS ORDERED: MAGNESIUM HYDROXIDE SUSP 30 ML UDCUP PO PRN (02:58)
[2019-11-16] MEDS ORDERED: PROMETHAZINE HCL INJ 25 MG/1 ML VIAL IV PRN (02:58)
[2019-11-16] MEDS ORDERED: MAG HYDROX/AL HYDROX/SIMETH SUSP 30 ML UDCUP PO PRN (02:58)
[2019-11-16 04:00] LABS: CHOLESTEROL 204.09 mg/dL (0-200); TRIGLYCERIDES 75 mg/dL (<150)
[2019-11-16] MEDS ORDERED: INFLUENZA QUAD (6MOS+) 2019-20 VAC 0.5 ML SYR IM ONE (04:06)
[2019-11-16 04:11] LABS: DIRECT LDL 169 mg/dL (<100)
--- NOTE | 2019-11-16 05:04 | PDOC H&P ---
History of Present Illness Admission Date/PCP: 11/16/2019 02:29 DENNYS CLARKE PA-C Patient complains of: Chest pain History of Present Illness: CHRISTEL VELAZCO is a 64 year old male who presented to the emergency room with acute chest pain. Patient admits that approximately 4 hours prior to his arrival in the emergency room, while sleeping he suddenly developed a constant, severe, crushing, substernal chest pain without radiation that was accompanied by moderate dyspnea and associated with mild dizziness. He denies other associated or accompanying signs and symptoms. He admits prior similar episodes related to tachyarrhythmias and substance abuse. He summoned EMS and his chest pain was relieved immediately by sublingual nitroglycerin. He has not identified any other aggravating or ameliorating factors for his chest pain. Patient was subsequently admitted to observation status for further evaluation treatment. Past Medical History Cardiac Medical History: Reports: Myocardial Infarction - Secondary to IV methamphetamine use, Hyperlipidema, Hypertension Denies: Congestive Heart Failure, Coronary Artery Disease Pulmonary Medical History: Reports: Pneumonia - 2004 Denies: Asthma, Bronchitis, Chronic Obstructive Pulmonary Disease (COPD), Tuberculosis EENT Medical History: Denies: Cataracts, Ears - Hearing aids Neurological Medical History: Denies: Hemorrhagic CVA, Ischemic CVA, Migraine, Multiple Sclerosis, Seizures Endocrine Medical History: Denies: Diabetes Mellitus Type 1, Diabetes Mellitus Type 2, Hyperthyroidism, Hypothyroidism, Obesity Renal/ Medical History: Denies: Chronic Kidney Disease, Nephrolithiasis Malignancy Medical History: Reports: Skin Cancer - Basal cell carcinoma, malignant melanoma GI Medical History: Reports: Gastroesophageal Reflux Disease, Hiatal Hernia Denies: Cirrhosis, Crohn's Disease, Hepatitis, Ulcerative Colitis Musculoskeltal Medical History: Reports: Arthritis Denies: Gout Skin Medical History: Denies: Eczema, Psoriasis Psychiatric Medical History: Reports: Depression, Substance Abuse Denies: Alcohol Dependency, Tobacco Dependency Traumatic Medical History: Reports: None Hematology: Denies: Anemia, Bleeding Tendencies Infectious Medical History: Denies: None Past Surgical History Past Surgical History: Reports: Appendectomy, Cardiac Catheterization - 2019, with cardiac ablation for arrhythmia, Herniorrhaphy, Tonsillectomy, Other - Vasectomy, skin cancer surgeries Social History Information Source: Patient Lives with: Alone Smoking Status: Never Smoker Electronic Cigarette use?: No Frequency of Alcohol Use: Occasional Hx Recreational Drug Use: Yes Drugs: Cocaine, Other - Methamphetamine Hx Prescription Drug Abuse: No - Advance Directive Resuscitation Status: Full Code Surrogate healthcare decision maker:: Eligio Huntn Family History Family History: CAD, Other - Parkinson's disease. denies: CVA, DM, Hyperlipidemia, Hypertension, Malignancy, Thyroid Disfunction Parental Family History Reviewed: Yes Children Family History Reviewed: No Sibling(s) Family History Reviewed.: Yes Medication/Allergy Home Medications: Aspirin [Aspirin 325 mg Tablet] 325 mg PO DAILY 11/16/19 Allergies/Adverse Reactions: No Known Allergies Allergy (Verified 03/19/19 08:54) Review of Systems Constitutional: ABSENT: chills, fever(s) Eyes: ABSENT: visual disturbances, other - Eye pain Ears: PRESENT: hearing changes - Difficulty hearing and tinnitus secondary to skin cancer growing into the left external auditory canal. ABSENT: other - Ear pain Nose, Mouth, and Throat: ABSENT: headache(s), mouth pain, sore throat Cardiovascular: PRESENT: as per HPI, chest pain. ABSENT: dyspnea on exertion, edema, orthropnea, palpitations Respiratory: ABSENT: cough, dyspnea Gastrointestinal: ABSENT: abdominal pain, constipation, diarrhea, nausea, vomiting Genitourinary: ABSENT: dysuria, hematuria Musculoskeletal: ABSENT: back pain, joint swelling Integumentary: ABSENT: pruritus, rash Neurological: ABSENT: confusion, convulsions, focal weakness, memory loss, syncope Psychiatric: ABSENT: anxiety, depression Endocrine: ABSENT: cold intolerance, heat intolerance, polydipsia, polyphagia, polyuria Hematologic/Lymphatic: ABSENT: easy bleeding, easy bruising Allergic/Immunologic: ABSENT: seasonal rhinorrhea Physical Exam Vital Signs: Temp Pulse Resp BP Pulse Ox 98.1 F 87 18 90/66 L 98 11/16/19 01:32 11/15/19 21:28 11/16/19 01:32 11/16/19 01:01 11/16/19 01:01 Intake & Output 11/14/19 11/15/19 11/16/19 23:59 23:59 23:59 Weight 60.5 kg General appearance: PRESENT: no acute distress, cooperative Head exam: PRESENT: atraumatic, normocephalic Eye exam: PRESENT: conjunctiva pink. ABSENT: conjunctival injection, scleral icterus Ear exam: PRESENT: other - Left ear with probable basal cell carcinoma noted in the external auditory canal. ABSENT: bleeding, drainage Mouth exam: PRESENT: dry mucosa, neck supple Neck exam: ABSENT: thyromegaly, tracheal deviation Respiratory exam: PRESENT: clear to auscultation felicia, symmetrical, unlabored Cardiovascular exam: PRESENT: RRR. ABSENT: clicks, gallop, rubs Pulses: PRESENT: normal radial pulses, normal dorsalis pedis pul Vascular exam: PRESENT: normal capillary refill. ABSENT: pallor GI/Abdominal exam: PRESENT: normal bowel sounds, soft. ABSENT: tenderness Rectal exam: PRESENT: deferred Extremities exam: ABSENT: joint swelling, pedal edema Musculoskeletal exam: ABSENT: deformity, dislocation Neurological exam: PRESENT: alert, oriented to person, oriented to place, oriented to time, oriented to situation, CN II-XII grossly intact. ABSENT: motor sensory deficit Psychiatric exam: PRESENT: appropriate affect, normal mood Skin exam: PRESENT: dry, intact, warm. ABSENT: jaundice, rash, urticaria Results Laboratory Results: 11/15/19 21:27 11/15/19 21:27 11/15/19 11/15/19 21:27 21:27 WBC 9.5 RBC 4.72 Hgb 14.8 Hct 43.4 MCV 92 MCH 31.3 MCHC 34.0 RDW 14.3 H Plt Count 168 Seg Neutrophils % Not Reportable Sodium 135.4 L Potassium 4.0 Chloride 99 Carbon Dioxide 30 Anion Gap 6 BUN 14 Creatinine 0.89 Est GFR ( Amer) > 60 Glucose 89 Calcium 8.4 Total Bilirubin 0.5 AST 36 Alkaline Phosphatase 81 Total Protein 7.1 Albumin 3.5 11/15/19 11/16/19 21:27 00:41 Troponin I < 0.012 < 0.012 NT-Pro-B Natriuret Pep 301 H Impressions: Chest X-Ray 11/15/19 21:27 IMPRESSION: No acute cardiopulmonary process copyright 2011 [employer]- All Rights Reserved Assessment and Plan - Diagnosis (1) Chest pain at rest Is this a current diagnosis for this admission?: Yes (2) GERD (gastroesophageal reflux disease) Qualifiers: Esophagitis presence: esophagitis presence not specified Qualified Code(s): K21.9 - Gastro-esophageal reflux disease without esophagitis Is this a current diagnosis for this admission?: Yes (3) Hypertension Qualifiers: Hypertension type: essential hypertension Qualified Code(s): I10 - Essential (primary) hypertension Is this a current diagnosis for this admission?: Yes (4) Hyperlipidemia Qualifiers: Hyperlipidemia type: unspecified Qualified Code(s): E78.5 - Hyperlipidemia, unspecified Is this a current diagnosis for this admission?: Yes (5) Polysubstance abuse Is this a current diagnosis for this admission?: Yes - Plan Summary Summary: Patient will be admitted observation status on telemetry floor. He will receive routine supportive and symptomatic cares. Serial cardiac enzymes will be obtained. Cardiology consultation will be obtained as needed. Patient may require an outpatient stress test or other further cardiac evaluation for which she may prefer to see his regular gear inspector. 2% Nitropaste will be applied every 6 hours dose of 1 g (1 inch). Morphine sulfate 2 to 4 mg IV every 2 hours will be used for control of chest pain. Patient will be placed on a cardiac diet. Patient will be continued on his usual home medications as appropriate once his med list has been verified and reconciled. An outpatient PLASTIC SURGERY/SURGICAL DERMATOLOGY/ENT consultation to deal with his left external auditory canal skin malignancy, should be arranged for the patient. - Time Time Spent with patient: 25-34 minutes Medications reviewed and adjusted accordingly: Yes Anticipated discharge: Home Within: within 48 hours - Inpatient Certification Based on my medical assessment, after consideration of the patient's comorbidities, presenting symptoms, or acuity I expect that the services needed warrant INPATIENT care.: No I certify that my determination is in accordance with my understanding of Medicare's requirements for reasonable and necessary INPATIENT services [42 CFR 412.3e].: No
[2019-11-16] MEDS: HEPARIN SOD (PORCINE) 5,000 UNIT/ML 1 ML VIAL SUBCUT SCH ×3 (05:23→21:29)
[2019-11-16] MEDS: PANTOPRAZOLE SODIUM 40 MG TABLET.DR PO SCH ×2 (05:24→17:05)
[2019-11-16 09:52] LABS: TROPONIN I < 0.012 ng/mL
[2019-11-16] MEDS: DOCUSATE SODIUM 100 MG CAPSULE PO SCH ×2 (10:33→17:05)
[2019-11-16] MEDS: ASPIRIN 325 MG TABLET PO SCH (10:33)
--- NOTE | 2019-11-16 12:33 | EKG REPORT ---
SEVERITY:- OTHERWISE NORMAL ECG - SINUS RHYTHM BORDERLINE LEFT AXIS DEVIATION : Confirmed by: Park Macias MD 16-Nov-2019 12:32:14
--- NOTE | 2019-11-16 12:33 | EKG REPORT ---
SEVERITY:- OTHERWISE NORMAL ECG - SINUS RHYTHM BORDERLINE LEFT AXIS DEVIATION : Confirmed by: Park Macias MD 16-Nov-2019 12:32:11
[2019-11-16 15:49] LABS: CREATINE KINASE MB 0.32 ng/mL (<4.55)
[2019-11-16 15:58] LABS: TROPONIN I < 0.012 ng/mL
--- NOTE | 2019-11-16 19:10 | PDOC CONSULTATION ---
Consultation-Blank Consultation: CARDIOLOGY CONSULTATION by Dr. Park Macias on 11/16/2019. Patient seen at 3 PM. 60 minutes spent on this patient with more than 50% of time spent in direct patient care. REASON FOR CONSULTATION: Patient admitted with chest pain. Patient with multiple multiple CAD risk factors. CONSULT REQUESTING PHYSICIAN: Dr. Thapa, [facility]. HISTORY OF PRESENT ILLNESS: Patient is a 64-year-old male who states that he was awakened from sleep about 4 hours prior to him showing up in the emergency room with severe crushing retrosternal chest pain associated with some shortness of breath. He also stated that it increased with deep breathing but was not pleuritic. He states there was no nausea vomiting. There was no radiation of the chest pain the. Chest pain is constant. The patient states after he came to the emergency room he states that he was given nitroglycerin and after some time [exact time not known] the chest pain subsided and has not recurred. He also states these episodes were similar to prior history of IV meth of methamphetamine and cocaine abuse. But the patient states that he has not had any drug abuse since the past many months and his drug screen is negative. He denies any PND orthopnea. There is no TIA CVA symptoms. There is no palpitations or syncope. The patient has a past history of wire paroxysmal atrial flutter and also SVT and had a retrograde accessory pathway that was ablated in [facility] by Tigre Merritt in February 2019. At the time he was placed on a beta-barrett and Eliquis. The patient did not get his Eliquis filled due to lack of insurance and financial reasons. He has not had any clinical episodes of palpitations which is suspicious of recurrence of proximal atrial flutter or SVT. There is no history of syncope. The patient has a past history of several episodes of TIA but none in the past few years. Past Medical History Cardiac Medical History: Reports: Myocardial Infarction - Secondary to IV methamphetamine use, Hyperlipidema, Hypertension. History of proximal atrial flutter and SVT status post ablation of retrograde accessory pathway in [place] in February 2019. There is been no recurrence of atrial flutter or SVT. Denies: Congestive Heart Failure, Coronary Artery Disease. The patient states in the past he used to have hypertension but in the recent years his blood pressure is low normal without medication. Pulmonary Medical History: Reports: Pneumonia - 2004 Denies: Asthma, Bronchitis, Chronic Obstructive Pulmonary Disease (COPD), Tuberculosis EENT Medical History: Denies: Cataracts, Ears - Hearing aids Neurological Medical History: Denies: Hemorrhagic CVA, Ischemic CVA, Migraine, Seizures. He has states that he has had several episodes of TIA with transient left-sided facial weakness and slurred speech. None in the recent months. Endocrine Medical History: Denies: Diabetes Mellitus Type 1, Diabetes Mellitus Type 2, Hyperthyroidism, Hypothyroidism, Obesity Renal/ Medical History: Denies: Chronic Kidney Disease, Nephrolithiasis Malignancy Medical History: Reports: Skin Cancer - Basal cell carcinoma, malignant melanoma GI Medical History: Reports: Gastroesophageal Reflux Disease, Hiatal Hernia. He has been diagnosed with history of hepatitis C. Denies: Cirrhosis, Crohn's Disease, Hepatitis, Ulcerative Colitis Musculoskeltal Medical History: Reports: Arthritis Denies: Gout Skin Medical History: Denies: Eczema, Psoriasis Psychiatric Medical History: Reports: Depression, Substance Abuse Denies: Alcohol Dependency, Tobacco Dependency Traumatic Medical History: Reports: None Hematology: Denies: Anemia, Bleeding Tendencies Infectious Medical History: Denies: None Past Surgical History Past Surgical History: Reports: Appendectomy - hernia, Cardiac Catheterization - 2019, with cardiac ablation for arrhythmia, Herniorrhaphy, Tonsillectomy, Other - Vasectomy, skin cancer surgeries Social History Information Source: Patient Lives with: Alone Electronic Cigarette use?: No Frequency of Alcohol Use: Occasional Hx Recreational Drug Use: Yes Drugs: Cocaine, Other - Methamphetamine. The patient states none in recent months and his drug screen is negative Hx Prescription Drug Abuse: No - Advance Directive Resuscitation Status: Full Code Surrogate healthcare decision maker:: Eligio Zaldivar: The patient's son Family History Family History: CAD, Other - Parkinson's disease. 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 ABSENT: other - Ear pain Nose, Mouth, and Throat: ABSENT: headache(s), sore throat Cardiovascular: PRESENT: as per HPI, chest pain. ABSENT: dyspnea on exertion, edema, orthropnea, palpitations Respiratory: ABSENT: cough, dyspnea Gastrointestinal: ABSENT: abdominal pain, constipation, diarrhea, nausea, vomiting Genitourinary: ABSENT: dysuria, hematuria Musculoskeletal: ABSENT: back pain, joint swelling Integumentary: ABSENT: pruritus, rash Neurological: ABSENT: confusion, convulsions, focal weakness, memory loss, syncope Psychiatric: ABSENT: anxiety, depression Endocrine: ABSENT: cold intolerance, heat intolerance, polydipsia, polyphagia, polyuria Hematologic/Lymphatic: ABSENT: easy bleeding, easy bruising Allergic/Immunologic: ABSENT: seasonal rhinorrhea. Current Medications Generic Name Dose Route Start Last Admin Trade Name Freq PRN Reason Stop Dose Admin Al Hydrox/Mg Hydrox/Simethicone 30 ml 11/16/19 02:58 Maalox Plus Susp 30 Udcup PO 12/16/19 02:57 Q6HP PRN HEARTBURN Aspirin 325 mg 11/16/19 10:00 11/16/19 10:33 Aspirin 325 Mg Tablet PO 12/16/19 09:59 325 mg DAILY PRAMOD Administration Atorvastatin Calcium 10 mg 11/16/19 22:00 Lipitor 10 Mg Tablet PO 12/16/19 21:59 QHS PRAMOD Docusate Sodium 100 mg 11/16/19 10:00 11/16/19 17:05 Colace 100 Mg Capsule PO 12/16/19 09:59 100 mg BID PRAMOD Administration Heparin Sodium (Porcine) 5,000 unit 11/16/19 06:00 11/16/19 13:20 Heparin Inj 5,000 Units/Ml 1 Ml Vial SUBCUT 12/16/19 05:59 5,000 unit Q8 PRAMOD Administration Magnesium Hydroxide 30 ml 11/16/19 02:58 Milk Of Magnesia 30 Ml Udcup PO 12/16/19 02:57 DAILYP PRN FOR CONSTIPATION Nitroglycerin 1 gm 11/16/19 02:27 11/16/19 17:05 Nitrol 2% Ointment 1gm Packet TP 12/16/19 02:26 1 gm Q6 PRAMOD Administration Pantoprazole Sodium 40 mg 11/16/19 06:00 11/16/19 17:[address] Tablet PO 12/16/19 05:59 40 mg BID@0600,1700 PRAMOD Administration Promethazine HCl 12.5 mg 11/16/19 02:58 Phenergan Inj 25 Mg/1 Ml Vial IV 12/16/19 02:57 Q4HP PRN FOR NAUSEA/VOMITING Sodium Chloride 2.5 ml 11/16/19 06:00 11/16/19 13:20 Saline Flush 2.5 Ml Monoject Prefil Syrin IV 12/16/19 05:59 2.5 ml Q8 PRAMOD Administration Discontinued Medications Generic Name Dose Route Start Last Admin Trade Name Freq PRN Reason Stop Dose Admin Atorvastatin Calcium 40 mg 11/16/19 22:00 Lipitor 40 Mg Tablet PO 12/16/19 21:59 QHS [facility] Influenza Virus Vaccine Quadrival 0.5 ml 11/16/19 04:06 Flulaval Quad Vac 0.5 Ml Syr IM 11/16/19 04:07 .ONCE ONE Nitroglycerin 1 gm 11/15/19 21:39 11/15/19 22:05 Nitrol 2% Ointment 1gm Packet TP 11/15/19 21:40 1 gm NOW ONE Administration PHYSICAL EXAMINATION: The patient is well-built and well-nourished at present no acute distress at present he has no chest pain or discomfort. Selected Entries 11/16/19 15:05 Temperature 98.2 F Temperature Oral Source Pulse Rate 66 Respiratory 18 Rate Blood Pressure 94/44 L Blood Pressure 60 Mean BP Position Supine O2 Sat by Pulse 100 Oximetry Oxygen Delivery Room Air Method HEAD: Is atraumatic normocephalic. Eyes: Pupils are equal round regular reactive light accommodation extraocular movements are normal there is no congenital pallor there is no scleral icterus. Ears: External auditory canals are clear, there are no lesions of the pinna. Nose: No deviated nasal septum and no inflammation of the nasal mucous membrane. Mouth: Mucous membranes of mouth are moist tongue is moist there is no ulcers there is no bleeding from the gums. Throat: There is no redness of the oropharynx there is no exudates. Skin: There is no petechia or ecchymosis there is no skin lesions or skin rashes. Neck: Neck is supple there is no JVD carotids equal there is no bruit there is no lymphadenopathy there is no neck stiffness. There is no goiter trachea central lungs: Lungs are clear to auscultation percussion there is no accessory muscles of respiration in use. There is no rhonchi rales or wheezing. There is no chest wall tenderness. HEART: S1-S2 is heard there is no S3 gallop there is no S4 gallop S1 is of normal intensity. There is no rub. The systolic murmur in the left sternal border and apex without radiation. Abdomen: Abdomen is soft nontender there is no paraspinal megaly bowel sounds well heard there is no tender areas of masses. There is no rebound guarding or rigidity. Extremities: Femorals are well felt there is no femoral bruits neck pulses are well felt there is no pedal edema there is no DVT or cellulitis there is no cyanosis or clubbing there is no DVT or cellulitis. There is no calf tenderness. 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 Psychiatric: The patient judgment and insight are intact and her affect is normal. The patient had 2 EKGs done serially. Both me shows sinus rhythm with border line left axis deviation, otherwise within normal limits. Labs- Entire Visit 11/15/19 11/15/19 11/15/19 21:27 21:27 21:27 WBC 9.5 RBC 4.72 Hgb 14.8 Hct 43.4 MCV 92 MCH 31.3 MCHC 34.0 RDW 14.3 H Plt Count 168 Lymph % (Auto) Not Reportable [place] % (Auto) Not Reportable Eos % (Auto) Not Reportable Baso % (Auto) Not Reportable Absolute Neuts (auto) Not Reportable Absolute Lymphs (auto) Not Reportable Absolute Monos (auto) Not Reportable Absolute Eos (auto) Not Reportable Absolute Basos (auto) Not Reportable Total Counted 100 Seg Neutrophils % Not Reportable Seg Neuts % (Manual) 63 Lymphocytes % (Manual) 23 Atypical Lymphs % 2 Monocytes % (Manual) 12 Eosinophils % (Manual) 0 Basophils % (Manual) 0 Abs Neuts (Manual) 6.0 Abs Lymphs (Manual) 2.4 Abs Monocytes (Manual) 1.1 Absolute Eos (Manual) 0.0 Abs Basophils (Manual) 0.0 Nucleated RBCs 2 Toxic Granulation SLIGHT Toxic Vacuolation PRESENT Platelet Comment ADEQUATE RBC Morph Comment NORMO-CYTIC/CHROMIC Sodium 135.4 L Potassium 4.0 Chloride 99 Carbon Dioxide 30 Anion Gap 6 BUN 14 Creatinine 0.89 Est GFR ( Amer) > 60 Est GFR (MDRD) Non-Af > 60 Glucose 89 Calcium 8.4 Magnesium Total Bilirubin 0.5 Direct Bilirubin 0.2 Neonat Total Bilirubin Not Reportable Neonat Direct Bilirubin Not Reportable Neonat Indirect Bili Not Reportable AST 36 ALT 54 H Alkaline Phosphatase 81 Creatine Kinase CK-MB (CK-2) Troponin I < 0.012 NT-Pro-B Natriuret Pep 301 H Total Protein 7.1 Albumin 3.5 Triglycerides Cholesterol LDL Cholesterol Direct VLDL Cholesterol HDL Cholesterol TSH Urine Opiates Screen Urine Methadone Screen Ur Barbiturates Screen Ur Phencyclidine Scrn Ur Amphetamines Screen U Benzodiazepines Scrn Urine Cocaine Screen U Marijuana (THC) Screen 11/16/19 11/16/19 11/16/19 00:32 00:41 00:41 WBC RBC Hgb Hct MCV MCH MCHC RDW Plt Count Lymph % (Auto) [place] % (Auto) Eos % (Auto) Baso % (Auto) Absolute Neuts (auto) Absolute Lymphs (auto) Absolute Monos (auto) Absolute Eos (auto) Absolute Basos (auto) Total Counted Seg Neutrophils % Seg Neuts % (Manual) Lymphocytes % (Manual) Atypical Lymphs % Monocytes % (Manual) Eosinophils % (Manual) Basophils % (Manual) Abs Neuts (Manual) Abs Lymphs (Manual) Abs Monocytes (Manual) Absolute Eos (Manual) Abs Basophils (Manual) Nucleated RBCs Toxic Granulation Toxic Vacuolation Platelet Comment RBC Morph Comment Sodium Potassium Chloride Carbon Dioxide Anion Gap BUN Creatinine Est GFR ( Amer) Est GFR (MDRD) Non-Af Glucose Calcium Magnesium 2.3 Total Bilirubin Direct Bilirubin Neonat Total Bilirubin Neonat Direct Bilirubin Neonat Indirect Bili AST ALT Alkaline Phosphatase Creatine Kinase CK-MB (CK-2) Troponin I < 0.012 NT-Pro-B Natriuret Pep Total Protein Albumin Triglycerides 75 Cholesterol 204.09 H LDL Cholesterol Direct 169 H VLDL Cholesterol 15.0 HDL Cholesterol 32 L TSH Urine Opiates Screen NEGATIVE Urine Methadone Screen NEGATIVE Ur Barbiturates Screen NEGATIVE Ur Phencyclidine Scrn NEGATIVE Ur Amphetamines Screen NEGATIVE U Benzodiazepines Scrn NEGATIVE Urine Cocaine Screen NEGATIVE U Marijuana (THC) Screen NEGATIVE 11/16/19 11/16/19 11/16/19 00:41 09:02 09:02 WBC RBC Hgb Hct MCV MCH MCHC RDW Plt Count Lymph % (Auto) [place] % (Auto) Eos % (Auto) Baso % (Auto) Absolute Neuts (auto) Absolute Lymphs (auto) Absolute Monos (auto) Absolute Eos (auto) Absolute Basos (auto) Total Counted Seg Neutrophils % Seg Neuts % (Manual) Lymphocytes % (Manual) Atypical Lymphs % Monocytes % (Manual) Eosinophils % (Manual) Basophils % (Manual) Abs Neuts (Manual) Abs Lymphs (Manual) Abs Monocytes (Manual) Absolute Eos (Manual) Abs Basophils (Manual) Nucleated RBCs Toxic Granulation Toxic Vacuolation Platelet Comment RBC Morph Comment Sodium Potassium Chloride Carbon Dioxide Anion Gap BUN Creatinine Est GFR ( Amer) Est GFR (MDRD) Non-Af Glucose Calcium Magnesium Total Bilirubin Direct Bilirubin Neonat Total Bilirubin Neonat Direct Bilirubin Neonat Indirect Bili AST ALT Alkaline Phosphatase Creatine Kinase < 20 L CK-MB (CK-2) 0.40 Troponin I < 0.012 NT-Pro-B Natriuret Pep Total Protein Albumin Triglycerides Cholesterol LDL Cholesterol Direct VLDL Cholesterol HDL Cholesterol TSH 1.10 Urine Opiates Screen Urine Methadone Screen Ur Barbiturates Screen Ur Phencyclidine Scrn Ur Amphetamines Screen U Benzodiazepines Scrn Urine Cocaine Screen U Marijuana (THC) Screen 11/16/19 11/16/19 14:34 14:34 WBC RBC Hgb Hct MCV MCH MCHC RDW Plt Count Lymph % (Auto) [place] % (Auto) Eos % (Auto) Baso % (Auto) Absolute Neuts (auto) Absolute Lymphs (auto) Absolute Monos (auto) Absolute Eos (auto) Absolute Basos (auto) Total Counted Seg Neutrophils % Seg Neuts % (Manual) Lymphocytes % (Manual) Atypical Lymphs % Monocytes % (Manual) Eosinophils % (Manual) Basophils % (Manual) Abs Neuts (Manual) Abs Lymphs (Manual) Abs Monocytes (Manual) Absolute Eos (Manual) Abs Basophils (Manual) Nucleated RBCs Toxic Granulation Toxic Vacuolation Platelet Comment RBC Morph Comment Sodium Potassium Chloride Carbon Dioxide Anion Gap BUN Creatinine Est GFR ( Amer) Est GFR (MDRD) Non-Af Glucose Calcium Magnesium Total Bilirubin Direct Bilirubin Neonat Total Bilirubin Neonat Direct Bilirubin Neonat Indirect Bili AST ALT Alkaline Phosphatase Creatine Kinase < 20 L CK-MB (CK-2) 0.32 Troponin I < 0.012 NT-Pro-B Natriuret Pep Total Protein Albumin Triglycerides Cholesterol LDL Cholesterol Direct VLDL Cholesterol HDL Cholesterol TSH Urine Opiates Screen Urine Methadone Screen Ur Barbiturates Screen Ur Phencyclidine Scrn Ur Amphetamines Screen U Benzodiazepines Scrn Urine Cocaine Screen U Marijuana (THC) Screen Chest X-Ray 11/15/19 21:27 IMPRESSION: No acute cardiopulmonary process IMPRESSION/RECOMMENDATION: 1. Chest pain: At present no acute EKG changes and troponin I serially negative x3. Recommend getting IV Lexiscan Cardiolite stress test. [Patient states he cannot walk on the treadmill due to arthritis of his knees and chronic back pain.]. At present continue aspirin and nitrates. Later we will determine as to what medications the patient should be discharged on after the stress test. 2. Paroxysmal atrial flutter: No clinical recurrence, or symptoms suggestive of recurrence of atrial flutter.. Patient did not continue Eliquis due to financial reasons reasons. But the patient now has insurance. Will recommend that the patient have a 30-day event monitor as an outpatient. 3. History of SVT s/p up ablation of accessory retrograde pathway in [place] in February 2019. No clinical recurrence. 4. Coronary artery disease and history of old myocardial infarction. No anginal symptoms. 5. History of TIAs intracerebral in the past. Would recommend checking the patient's carotid Dopplers. Note no recent recurrence of TIA. 6. Hyperlipidemia: The patient is low HDL and high LDL levels. Will start the patient on very small dose of atorvastatin in view of the patient's history of hepatitis C and abnormal liver function test. 7 systolic murmur: Most likely mitral regurgitation. Later we will get an echocardiogram. This can be done as an outpatient also. 8. HIstory of hepatitis C. Note patient's liver function tests very mildly abnormal. 9. Polysubstance abuse by history. Prior history of amphetamine and cocaine abuse. Patient has been abstinent since many months, as per patient. 10. Abnormal liver function test: We will recheck LFTs on statins prior to his discharge. 11. Multiple CAD risk factors namely age, dyslipidemia/hyperlipidemia, and family history of premature coronary artery disease. Medications reviewed. Medical regimen and management plan discussed with attending provider on the case also my recommendation of stress testing discussed with attending physician and also with the patient. Medical decision making is of high complexity. 60 minutes spent as patient more than 50% of time spent in direct patient care. Will follow.
[2019-11-16] MEDS: ATORVASTATIN CALCIUM 10 MG TABLET PO SCH (21:29)
[2019-11-16] MEDS ORDERED: ATORVASTATIN CALCIUM 40 MG TABLET PO SCH ×2 (22:00)
[2019-11-16 23:52] LABS: CREATINE KINASE MB 0.38 ng/mL (<4.55)
[2019-11-16 23:53] LABS: TROPONIN I < 0.012 ng/mL
[2019-11-17] MEDS: PANTOPRAZOLE SODIUM 40 MG TABLET.DR PO SCH ×2 (05:51→17:27)
[2019-11-17] MEDS: NITROGLYCERIN 2% OINTMENT 1 GM PACKET TP SCH ×2 (05:54→11:42)
[2019-11-17] MEDS: HEPARIN SOD (PORCINE) 5,000 UNIT/ML 1 ML VIAL SUBCUT SCH ×3 (05:54→21:05)
[2019-11-17] MEDS: ASPIRIN 325 MG TABLET PO SCH (11:42)
[2019-11-17] MEDS: DOCUSATE SODIUM 100 MG CAPSULE PO SCH ×2 (11:42→17:27)
[2019-11-17] MEDS ORDERED: REGADENOSON INJ 0.4 MG/5 ML DISP.SYRIN IV ONE (11:55)
[2019-11-17] MEDS ORDERED: METOPROLOL SUCCINATE 25 MG TAB.SR.24H PO SCH ×2 (17:00→22:00)
--- NOTE | 2019-11-17 17:35 | PDOC PROGRESS REPORT ---
Subjective Progress Note for:: 11/17/19 Subjective:: Patient is doing well today. At the time of my encounter this morning, patient states he thought his chest pain had resolved. Complained of a headache which started after Lexiscan. Otherwise feels well. Reason For Visit: CHEST PAIN Physical Exam Vital Signs: Temp Pulse Resp BP Pulse Ox 98.1 F 70 18 98/52 L 98 11/17/19 13:00 11/17/19 13:00 11/17/19 13:00 11/17/19 16:42 11/17/19 13:00 Intake & Output 11/16/19 11/17/19 11/18/19 06:59 06:59 06:59 Intake Total 120 600 962 Balance 120 600 962 Weight 66.2 kg 66.2 kg General appearance: PRESENT: no acute distress, cooperative Neck exam: ABSENT: JVD Respiratory exam: PRESENT: tachypnea, unlabored. ABSENT: accessory muscle use, retraction, wheezes Cardiovascular exam: PRESENT: RRR, +S1, +S2. ABSENT: tachycardia GI/Abdominal exam: PRESENT: soft. ABSENT: rebound, rigid, tenderness Neurological exam: PRESENT: alert, awake, oriented to person, oriented to place, oriented to time Results Laboratory Results: 11/15/19 21:27 11/15/19 21:27 11/15/19 11/16/19 11/16/19 21:27 00:41 09:02 Creatine Kinase < 20 L CK-MB (CK-2) Troponin I < 0.012 < 0.012 NT-Pro-B Natriuret Pep 301 H 11/16/19 11/16/19 11/16/19 09:02 14:34 14:34 Creatine Kinase < 20 L CK-MB (CK-2) 0.40 0.32 Troponin I < 0.012 < 0.012 NT-Pro-B Natriuret Pep 11/16/19 11/16/19 22:51 22:51 Creatine Kinase < 20 L CK-MB (CK-2) 0.38 Troponin I < 0.012 NT-Pro-B Natriuret Pep Impressions: Chest X-Ray 11/15/19 21:27 IMPRESSION: No acute cardiopulmonary process copyright 2011 [email or web address] All Rights Reserved Assessment and Plan - Diagnosis (1) Chest pain Qualifiers: Chest pain type: unspecified Qualified Code(s): R07.9 - Chest pain, unspecified Is this a current diagnosis for this admission?: Yes (2) Polysubstance abuse Is this a current diagnosis for this admission?: Yes (3) GERD (gastroesophageal reflux disease) Qualifiers: Esophagitis presence: esophagitis presence not specified Qualified Code(s): K21.9 - Gastro-esophageal reflux disease without esophagitis Is this a current diagnosis for this admission?: Yes (4) Hyperlipidemia Qualifiers: Hyperlipidemia type: unspecified Qualified Code(s): E78.5 - Hyperlipidemia, unspecified Is this a current diagnosis for this admission?: Yes (5) Hypertension Qualifiers: Hypertension type: essential hypertension Qualified Code(s): I10 - Essential (primary) hypertension Is this a current diagnosis for this admission?: Yes - Plan Summary Summary: Patient will be admitted observation status on telemetry floor. He will receive routine supportive and symptomatic cares. Serial cardiac enzymes will be obtained. Cardiology consultation will be obtained as needed. Patient may require an outpatient stress test or other further cardiac evaluation for which she may prefer to see his regular supervisor gate services. 2% Nitropaste will be applied every 6 hours dose of 1 g (1 inch). Morphine sulfate 2 to 4 mg IV every 2 hours will be used for control of chest pain. Patient will be placed on a cardiac diet. Patient will be continued on his usual home medications as appropriate once his med list has been verified and reconciled. An outpatient PLASTIC SURGERY/SURGICAL DERMATOLOGY/ENT consultation to deal with his left external auditory canal skin malignancy, should be arranged for the patient. 11/17/2019 Patient underwent cardiac stress test today with Lexiscan as recommended by supervisor gate services. Lexiscan showed small area of reversible ischemic defect in the apical wall. Results relayed to me by supervisor gate services who has been placed patient on beta-barrett and Imdur and deemed that no need for referral for revasculariz ation at this time due to the very small size of the defect. Patient currently is chest pain-free and doing well. Will monitor through the night. - Time Time Spent with patient: Less than 15 minutes
[2019-11-17] MEDS: ATORVASTATIN CALCIUM 10 MG TABLET PO SCH (21:05)
--- NOTE | 2019-11-17 21:40 | Progress Note ---
Provider Note Provider Note: CARDIOLOGY PROGRESS NOTE by Dr. Park Macias on 11/17/2019. SUBJECTIVE: The patient denies any chest pain or discomfort. There is no PND or orthopnea. He is asymptomatic with a blood pressure of 93 and with good mentation. There is no arrhythmia seen on the monitor. There is no TIA CVA symptoms. The patient denies any shortness of breath palpitations PND or orthopnea. The patient underwent a IV Lexiscan Cardiolite stress test this morning without any complications. PHYSICAL EXAMINATION: The patient is well-built and well-nourished in no acute distress Selected Entries 11/17/19 11/17/19 16:31 16:42 Temperature 98.1 F Temperature Oral Source Pulse Rate 85 Respiratory 18 Rate Blood Pressure 93/63 L Blood Pressure 98/52 L [Left Upper Arm Later after wiping off the Nitropaste his blood pressure is 123/82. ] Blood Pressure 73 Mean Blood Pressure 67 Mean [Left Upper Arm] Blood Pressure Sitting Position [Left Upper Arm] BP Location Right Arm BP Position Supine O2 Sat by Pulse 98 Oximetry Oxygen Delivery Room Air Method HEAD: Is atraumatic normocephalic. Eyes: Pupils are equal round regular reactive light accommodation extraocular movements are normal there is no congenital pallor there is no scleral icterus. Ears: External auditory canals are clear, there are no lesions of the pinna. Nose: No deviated nasal septum and no inflammation of the nasal mucous membrane. Mouth: Mucous membranes of mouth are moist tongue is moist there is no ulcers there is no bleeding from the gums. Throat: There is no redness of the oropharynx there is no exudates. Skin: There is no petechia or ecchymosis there is no skin lesions or skin rashes. Neck: Neck is supple there is no JVD carotids equal there is no bruit there is no lymphadenopathy there is no neck stiffness. There is no goiter trachea central lungs: Lungs are clear to auscultation percussion there is no accessory muscles of respiration in use. There is no rhonchi rales or wheezing. There is no chest wall tenderness. HEART: S1-S2 is heard there is no S3 gallop there is no S4 gallop S1 is of normal intensity. There is no rub. The systolic murmur in the left sternal border and apex without radiation. Abdomen: Abdomen is soft nontender there is no paraspinal megaly bowel sounds well heard there is no tender areas of masses. There is no rebound guarding or rigidity. Extremities: Femorals are well felt there is no femoral bruits neck pulses are well felt there is no pedal edema there is no DVT or cellulitis there is no cyanosis or clubbing there is no DVT or cellulitis. There is no calf tenderness. MANAGEMENT DEVELOPER: The patient is awake alert oriented 3 with no focal deficits. Psychiatric: The patient judgment and insight are intact and her affect is normal. IV Cardiolite stress test: There is a small area of mild reversible ischemia in the apical IV septum. No evidence of myocardial infarction/scar. This has been discussed in detail with patient and with attending provider on the case. Labs- All tests 24 hr 11/16/19 11/16/19 22:51 22:51 Creatine Kinase < 20 L CK-MB (CK-2) 0.38 Troponin I < 0.012 Chest X-Ray 11/15/19 21:27 IMPRESSION: No acute cardiopulmonary process IMPRESSION/RECOMMENDATION: 1. Chest pain: No evidence of CA. No acute EKG changes and troponin is negative. The patient's stress test is mildly abnormal. 2. Paroxysmal atrial flutter: No clinical recurrence, or symptoms suggestive of recurrence of atrial flutter.. Patient did not continue Eliquis due to financial reasons reasons. But the patient now has insurance. Will recommend that the patient have a 30-day event monitor as an outpatient. 3. History of SVT s/p up ablation of accessory retrograde pathway in [place] in February 2019. No clinical recurrence. 4. Coronary artery disease and history of old myocardial infarction. No anginal symptoms. 5. History of TIAs intracerebral in the past. Would recommend checking the patient's carotid Dopplers. Note no recent recurrence of TIA. 6. Hyperlipidemia: The patient is low HDL and high LDL levels. Will start the patient on very small dose of atorvastatin in view of the patient's history of hepatitis C and abnormal liver function test. 7 systolic murmur: Most likely mitral regurgitation. Later we will get an echocardiogram. This can be done as an outpatient also. 8. HIstory of hepatitis C. Note patient's liver function tests very mildly abnormal. 9. Polysubstance abuse by history. Prior history of amphetamine and cocaine abuse. Patient has been abstinent since many months, as per patient. 10. Abnormal liver function test: We will recheck LFTs on statins prior to his discharge. 11. Abnormal stress Cardiolite stress test. Shows a small area of mild reversible ischemia in the apical septum. Hence would maximize the patient medical therapy. Cardiac catheterization if the patient has breakthrough angina on good medication therapy. At present the patient's blood pressure is low. Will discontinue the patient's Nitropaste and recheck the patient blood pressure. I feel that the patient's blood pressure will come up then will start the patient on Toprol-XL 25 mg p.o. daily and also add Imdur/isosorbide mononitrate extended release 30 mg p.o. daily and sublingual nitroglycerin. Continue aspirin. As mentioned earlier in view of the patient's systolic murmur will get a outpatient echocardiogram and for LV ejection fraction. Also will get a 30-day event monitor to make sure that the patient has no recurrence of hi s atrial flutter/SVT. Medications reviewed. Medical regimen and management plan discussed with the attending provider on the case. Stress results and management options have been discussed with the patient in detail. Medical decision making is of high complexity. 40 minutes spent as patient more than 50% of time spent in direct patient care. Will follow.
[2019-11-18] MEDS: PANTOPRAZOLE SODIUM 40 MG TABLET.DR PO SCH (05:59)
[2019-11-18] MEDS: HEPARIN SOD (PORCINE) 5,000 UNIT/ML 1 ML VIAL SUBCUT SCH (05:59)
[2019-11-18] MEDS: DOCUSATE SODIUM 100 MG CAPSULE PO SCH (09:15)
[2019-11-18] MEDS: ASPIRIN 325 MG TABLET PO SCH (09:15)
[2019-11-18] MEDS ORDERED: ISOSORBIDE MONONITRATE 30 MG TAB.ER.24H PO SCH (10:00)
[2019-11-18] MEDS ORDERED: ISOSORBIDE MONONITRATE 60 MG TAB.ER.24H PO SCH (10:00)
--- NOTE | 2019-11-18 11:40 | PDOC DISCHARGE SUMMARY ---
Impression - Admit/DC Date/PCP Admission Date/Primary Care Provider: 11/16/19 02:29 DENNYS CLARKE PA-C Discharge Date: 11/18/19 - Discharge Diagnosis (1) Chest pain Is this a current diagnosis for this admission?: Yes (2) Unstable angina Is this a current diagnosis for this admission?: Yes (3) Polysubstance abuse Is this a current diagnosis for this admission?: Yes (4) GERD (gastroesophageal reflux disease) Is this a current diagnosis for this admission?: Yes (5) Hyperlipidemia Is this a current diagnosis for this admission?: Yes (6) Hypertension Is this a current diagnosis for this admission?: Yes (7) Coronary artery disease Is this a current diagnosis for this admission?: Yes - Additional Information Resuscitation Status: Full Code Discharge Diet: Cardiac Discharge Activity: Activity As Tolerated Referrals: NATIVIDAD VARGAS MD [ACTIVE STAFF] - DENNYS CLARKE PA-C [Primary Care Provider] - Prescriptions: Isosorbide Mononitrate [Imdur 30 mg Tablet.er] 30 mg PO DAILY #30 tab.er.24h Atorvastatin Calcium [Lipitor 40 mg Tablet] 40 mg PO QHS #30 tablet Nitroglycerin 0.4 mg SL Q5MP PRN #30 tab.subl PRN Reason: For Chest Pain Metoprolol Succinate [Toprol Xl 25 mg Tab.sr] 25 mg PO QHS #30 tab.sr.24h Home Medications: Aspirin [Aspirin 325 mg Tablet] 325 mg PO DAILY 11/16/19 Atorvastatin Calcium [Lipitor 40 mg Tablet] 40 mg PO QHS #30 tablet 11/18/19 Isosorbide Mononitrate [Imdur 30 mg Tablet.er] 30 mg PO DAILY #30 tab.er.24h 11/18/19 Metoprolol Succinate [Toprol Xl 25 mg Tab.sr] 25 mg PO QHS #30 tab.sr.24h 11/18/19 Nitroglycerin 0.4 mg SL Q5MP PRN #30 tab.subl 11/18/19 History of Present Illiness History of Present Illness: CHRISTEL VELAZCO is a 64 year old male who presented to the emergency room with a cute chest pain. Patient admits that approximately 4 hours prior to his arrival in the emergency room, while sleeping he suddenly developed a constant, severe, crushing, substernal chest pain without radiation that was accompanied by moderate dyspnea and associated with mild dizziness. He denies other associated or accompanying signs and symptoms. He admits prior similar episodes related to tachyarrhythmias and substance abuse. He summoned EMS and his chest pain was relieved immediately by sublingual nitroglycerin. He has not identified any other aggravating or ameliorating factors for his chest pain. Patient was subsequently admitted to observation status for further evaluation treatment. Hospital Course Hospital Course: Patient was admitted for evaluation of his chest pain. Troponins were negative x3. EKG showed no new ischemic findings. Chest x-ray was unremarkable. Given his history of coronary artery disease, cardiology was consulted for evaluation and recommended stress test. Patient underwent Cardiolite stress test which was mildly abnormal revealing a small area of reversible defect in the apical septum. Left heart catheterization was not recommended by cardiology while inpatient given the small size of the area of defect. It is possible that patient may have had unstable angina briefly. Patient was started on Toprol-XL and Imdur by cardiology. Lipid panel also revealed hyperlipidemia with LDL of 169. Patient was started on high-dose atorvastatin. Patient also given prescriptions for sublingual nitroglycerin to be used on an as-needed basis only. Patient is currently chest pain-free and his blood pressure has remained normal despite starting these new medications. Patient is currently stable for discharge and is to follow-up with his primary care provider as well as Dr. Du in the outpatient setting. Physical Exam Vital Signs: Temp Pulse Resp BP Pulse Ox 97.9 F 79 19 103/57 L 100 11/18/19 07:26 11/18/19 07:26 11/18/19 07:26 11/18/19 07:26 11/18/19 07:26 Intake & Output 11/17/19 11/18/19 11/19/19 06:59 06:59 06:59 Intake Total 600 1405 Balance 600 1405 Weight 66.2 kg 71.3 kg General appearance: PRESENT: no acute distress, cooperative Respiratory exam: PRESENT: clear to auscultation felicia, unlabored Cardiovascular exam: PRESENT: RRR, +S1, +S2. ABSENT: tachycardia GI/Abdominal exam: PRESENT: soft Neurological exam: PRESENT: alert, awake Results Laboratory Results: WBC 9.5 10^3/uL (4.0-10.5) 11/15/19 21:27 RBC 4.72 10^6/uL (4.35-5.55) 11/15/19 21: Hgb 14.8 g/dL (13.5-17.0) 11/15/19: Hct 43.4 % (37.9-51.0) 11/15/19: MCV 92 fl (80-97) 11/15/19: MCH 31.3 pg (27.0-33.4) 11/15/19: MCHC 34.0 g/dL (32.0-36.0) 11/15/19: RDW 14.3 % (11.5-14.0) H 11/15/19: Plt Count 168 10^3/uL (150-450) 11/15/19 21: Lymph % (Auto) Not Reportable 11/15/19 21: [place] % (Auto) Not Reportable 11/15/19 21: Eos % (Auto) Not Reportable 11/15/19 21: Baso % (Auto) Not Reportable 11/15/19 21: Absolute Neuts (auto) Not Reportable 11/15/19 21: Absolute Lymphs (auto) Not Reportable 11/15/19 21:27 Absolute Monos (auto) Not Reportable 11/15/19 21:27 Absolute Eos (auto) Not Reportable 11/15/19 21: Absolute Basos (auto) Not Reportable 11/15/19 21:27 Total Counted 100 11/15/19 21: Seg Neutrophils % Not Reportable 11/15/19 21: Seg Neuts % (Manual) 63 % (42-78) 11/15/19 21: Lymphocytes % (Manual) 23 % (13-45) 11/15/19 21: Atypical Lymphs % 2 % (0) 11/15/19 21: Monocytes % (Manual) 12 % (3-13) 11/15/19 21: Eosinophils % (Manual) 0 % (0-6) 11/15/19 21: Basophils % (Manual) 0 % (0-2) 11/15/19 21: Abs Neuts (Manual) 6.0 10^3/uL (1.7-8.2) 11/15/19: Abs Lymphs (Manual) 2.4 10^3/uL (0.5-4.7) 11/15/19 21: Abs Monocytes (Manual) 1.1 10^3/uL (0.1-1.4) 11/15/19 21: Absolute Eos (Manual) 0.0 10^3/uL (0.0-0.6) 11/15/19: Abs Basophils (Manual) 0.0 10^3/uL (0.0-0.2) 11/15/19 21: Nucleated RBCs 2 /100 WBC (0) 11/15/19 21: Toxic Granulation SLIGHT 11/15/19 21: Toxic Vacuolation PRESENT 11/15/19 21: Platelet Comment ADEQUATE 11/15/19: RBC Morph Comment NORMO-CYTIC/CHROMIC 11/15/19: Sodium 135.4 mmol/L (137-145) L 11/15/19: Potassium 4.0 mmol/L (3.6-5.0) 11/15/19: Chloride 99 mmol/L (98-107) 11/15/19: Carbon Dioxide 30 mmol/L (22-30) 11/15/19: Anion Gap 6 (5-19) 11/15/19: BUN 14 mg/dL (7-20) 11/15/19: Creatinine 0.89 mg/dL (0.52-1.25) 11/15/19: Est GFR ( Amer) > 60 (>60) 11/15/19: Est GFR (MDRD) Non-Af > 60 (>60) 11/15/19: Glucose 89 mg/dL (75-110) 11/15/19: Calcium 8.4 mg/dL (8.4-10.2) 11/15/19: Magnesium 2.3 mg/dL (1.6-2.3) 11/16/19 00:41 Total Bilirubin 0.5 mg/dL (0.2-1.3) 11/15/19: Direct Bilirubin 0.2 mg/dL (0.0-0.4) 11/15/19: Neonat Total Bilirubin Not Reportable 11/15/19 21:27 Neonat Direct Bilirubin Not Reportable 11/15/19 21:27 Neonat Indirect Bili Not Reportable 11/15/19 21:27 AST 36 U/L (17-59) 11/15/19 21:27 ALT 54 U/L (<50) H 11/15/19 21:27 Alkaline Phosphatase 81 U/L (38-126) 11/15/19 21: Creatine Kinase < 20 U/L (55-170) L 11/16/19 22:51 CK-MB (CK-2) 0.38 ng/mL (<4.55) 11/16/19 22:51 Troponin I < 0.012 ng/mL 11/16/19 22:51 NT-Pro-B Natriuret Pep 301 pg/mL (<125) H 11/15/19 21:27 Total Protein 7.1 g/dL (6.3-8.2) 11/15/19 21: Albumin 3.5 g/dL (3.5-5.0) 11/15/19 21: Triglycerides 75 mg/dL (<150) 11/16/19 00:41 Cholesterol 204.09 mg/dL (0-200) H 11/16/19 00:41 LDL Cholesterol Direct 169 mg/dL (<100) H 11/16/19 00:41 VLDL Cholesterol 15.0 mg/dL (10-31) 11/16/19 00:41 HDL Cholesterol 32 mg/dL (>40) L 11/16/19 00:41 TSH 1.10 uIU/mL (0.47-4.68) 11/16/19 00:41 Urine Opiates Screen NEGATIVE 11/16/19 00:32 Urine Methadone Screen NEGATIVE 11/16/19 00:32 Ur Barbiturates Screen NEGATIVE 11/16/19 00:32 Ur Phencyclidine Scrn NEGATIVE 11/16/19 00:32 Ur Amphetamines Screen NEGATIVE 11/16/19 00:32 U Benzodiazepines Scrn NEGATIVE 11/16/19 00:32 Urine Cocaine Screen NEGATIVE 11/16/19 00:32 U Marijuana (THC) Screen NEGATIVE 11/16/19 00:32 11/15/19 11/16/19 11/16/19 21:27 00:41 09:02 CK-MB (CK-2) 0.40 Troponin I < 0.012 < 0.012 < 0.012 NT-Pro-B Natriuret Pep 301 H 11/16/19 11/16/19 14:34 22:51 CK-MB (CK-2) 0.32 0.38 Troponin I < 0.012 < 0.012 NT-Pro-B Natriuret Pep Impressions: Chest X-Ray 11/15/19 21:27 IMPRESSION: No acute cardiopulmonary process copyright 2011 [employer]- All Rights Reserved Plan Time Spent: Less than 30 Minutes Stroke Is this a Stroke Patient?: No Acute Heart Failure - Is this a Heart Failure Patient?: No
[2019-11-18 12:12] VITALS: BP 100/56
--- NOTE | 2019-11-18 19:03 | Progress Note ---
Provider Note Provider Note: CARDIOLOGY PROGRESS NOTE by Dr. Park Macias on 11/18/2019. SUBJECTIVE: The patient has no chest pain or discomfort. There is no shortness of breath. There is no PND orthopnea. There is no arrhythmia seen on the monitor. There is no leg edema. There is no palpitations dizziness or near syncope or syncope. PHYSICAL EXAMINATION: The patient is well-built and well-nourished in no acute distress. Selected Entries 11/18/19 11:02 Temperature 97.8 F Temperature Oral Source Pulse Rate 74 Respiratory 17 Rate Blood Pressure 100/56 L Blood Pressure 70 Mean BP Location Right Arm BP Position Supine O2 Sat by Pulse 98 Oximetry Oxygen Delivery Room Air Method HEAD: Is atraumatic normocephalic. Eyes: Pupils are equal round regular reactive light accommodation extraocular movements are normal there is no congenital pallor there is no scleral icterus. Ears: External auditory canals are clear, there are no lesions of the pinna. Nose: No deviated nasal septum and no inflammation of the nasal mucous membrane. Mouth: Mucous membranes of mouth are moist tongue is moist there is no ulcers there is no bleeding from the gums. Throat: There is no redness of the oropharynx there is no exudates. Skin: There is no petechia or ecchymosis there is no skin lesions or skin rashes. Neck: Neck is supple there is no JVD carotids equal there is no bruit there is no lymphadenopathy there is no neck stiffness. There is no goiter trachea central lungs: Lungs are clear to auscultation percussion there is no accessory muscles of respiration in use. There is no rhonchi rales or wheezing. There is no chest wall tenderness. HEART: S1-S2 is heard there is no S3 gallop there is no S4 gallop S1 is of normal intensity. There is no rub. The systolic murmur in the left sternal border and apex without radiation. Abdomen: Abdomen is soft nontender there is no paraspinal megaly bowel sounds well heard there is no tender areas of masses. There is no rebound guarding or rigidity. Extremities: Femorals are well felt there is no femoral bruits neck pulses are well felt there is no pedal edema there is no DVT or cellulitis there is no cyanosis or clubbing there is no DVT or cellulitis. There is no calf tenderness. MAINTENANCE SERVICE DISPATCHER: The patient is awake alert oriented 3 with no focal deficits. Psychiatric: The patient judgment and insight are intact and her affect is normal. IMPRESSION/RECOMMENDATION: 1. Chest pain: No evidence of VT. No acute EKG changes and troponin is negative. The patient's stress test is mildly abnormal. 2. Paroxysmal atrial flutter: No clinical recurrence, or symptoms suggestive of recurrence of atrial flutter.. Patient did not continue Eliquis due to financial reasons reasons. But the patient now has insurance. Will recommend that the patient have a 30-day event monitor as an outpatient. 3. History of SVT s/p up ablation of accessory retrograde pathway in [place] in February 2019. No clinical recurrence. 4. Coronary artery disease and history of old myocardial infarction. No anginal symptoms. 5. History of TIAs intracerebral in the past. Would recommend checking the patient's carotid Dopplers. Note no recent recurrence of TIA. 6. Hyperlipidemia: The patient is low HDL and high LDL levels. Will start the patient on very small dose of atorvastatin in view of the patient's history of hepatitis C and abnormal liver function test. 7 systolic murmur: Most likely mitral regurgitation. Later we will get an echocardiogram. This can be done as an outpatient also. 8. HIstory of hepatitis C. Note patient's liver function tests very mildly abnormal. 9. Polysubstance abuse by history. Prior history of amphetamine and cocaine abuse. Patient has been abstinent since many months, as per patient. 10. Abnormal liver function test: We will recheck LFTs on statins prior to his discharge. 11. Abnormal stress Cardiolite stress test. Shows a small area of mild reversible ischemia in the apical septum. Hence would maximize the patient medical therapy. Cardiac catheterization if the patient has breakthrough angina on good medication therapy. He is tolerating beta-barrett and Imdur. We will continue the patient's aspirin and small dose of atorvastatin. Would recheck the patient's LFTs on atorvastatin as an outpatient. Also as mentioned earlier would recommend a 30-day event monitor for seeing the patient is recurrence of atrial flutter or SVT an echocardiogram for LV ejection fraction and assessment of the systolic murmur. Medications reviewed. Medical regimen and management plan discussed with attending physician on the case. Medical decision making is a moderate complexity. 40 minutes spent with patient with more than 50% time spent in direct patient care. Will follow the patient as outpatient. The patient has my cell phone number to call me if he should run into any problems. Will sign off.
[2019-11-18] MEDS ORDERED: ATORVASTATIN CALCIUM 40 MG TABLET PO SCH (22:00)
--- NOTE | 2019-11-20 00:33 | DRAGON STRESS TEST REPORT ---
Intravenous Lexiscan Cardiolite stress test using single photon emmision computerized tomography. Date of procedure: 11/17/2019. Ordering Provider:Dr. Park Macias..Patient's status: Inpatient. Indication: Chest pain in a patient with history of prior [place] and coronary artery disease.. Coronary risk factors: Age, dyslipidemia/hyperlipidemia, and family history of CAD. Resting EKG: Sinus Rhythm. Left anterior fascicular block [LAHB] Stress EKG: No changes of ischemia. The patient had no chest pain or discomfort, and there were no arrhythmias seen Reason for termination: Protocol. Conclusions: Normal EKG and hemodynamic response to IV Lexiscan. Nuclear data: At rest the patient was given 10.99 millicuries of technetium 99m sestamibi injected intravenously. As per protocol rest non gated SPECT images were obtained. Subsequently the patient was given intravenous Lexiscan at a dose of 0.4 mg in 5 mL intravenously, followed by flush with normal saline. Subsequently the stress dose of 31.1 millicuries of technetium 99m sestamibi was injected intravenously. As per protocol stress gated images were obtained. Nuclear interpretation: Review of images showed that a small area of left ventricular apical septum showing a mild perfusion defect in the stress images which normalizes in the rest images. This segment is normal motion contraction and thickening by gated study. The rest of the segments of the myocardium had normal perfusion at rest, and normal perfusion post stress with IV Lexiscan. All segments of the myocardium had normal motion, contraction, and thickening by gated study. T. I D. ratio was normal at 1.01 . There is no transient ischemic dilatation of the left ventricle. Computer read rest, and stress left ventricular ejection fraction were 56 %, and 62 %, respectively. Visually both the stress and rest ejection fractions were normal, and greater than 60 %. Conclusion: 1. There is scintigraphic evidence of Lexiscan induced mild myocardial ischemia in a small area of the left ventricular apical septum. 2. There is no scintigraphic evidence of myocardial infarction/scar. Recommendations: 1. Aggressive treatment of coronary artery disease. Cardiac catheterization if the patient develops angina on good medical therapy. Continue aspirin. Continue statin. Continue nitrates and beta-blockers. 2. Aggressive risk factor modification, and treating the underlying co- morbidities. [id number]
== END 2019-11-18 13:00 | disposition home or self-care (01) ==
LOC: ER 21:16 → EH 11-16 02:29 → 4W 11-16 03:40
PROVIDERS: ADMIT Emergency Medicine; ATTEND Internal Medicine
DX: R07.2 Precordial pain (principal); I25.110 Atherosclerotic heart disease of native coronary artery with unstable angina pectoris; F19.11 Other psychoactive substance abuse, in remission; K21.9 Gastro-esophageal reflux disease without esophagitis; E78.5 Hyperlipidemia, unspecified; I10 Essential (primary) hypertension; I25.10 Atherosclerotic heart disease of native coronary artery without angina pectoris; C44.209 Unspecified malignant neoplasm of skin of left ear and external auricular canal; H93.19 Tinnitus, unspecified ear; H91.8X9 Other specified hearing loss, unspecified ear; I48.92 Unspecified atrial flutter; R94.5 Abnormal results of liver function studies; R51 Headache; R94.39 Abnormal result of other cardiovascular function study; R01.1 Cardiac murmur, unspecified; M13.862 Other specified arthritis, left knee; M13.861 Other specified arthritis, right knee; G89.29 Other chronic pain; M54.9 Dorsalgia, unspecified; I25.2 Old myocardial infarction; Z82.49 Family history of ischemic heart disease and other diseases of the circulatory system; Z85.828 Personal history of other malignant neoplasm of skin; Z85.820 Personal history of malignant melanoma of skin; Z59.7 Insufficient social insurance and welfare support; Z91.14 Patient's other noncompliance with medication regimen; Z59.6 Low income; Z86.73 Personal history of transient ischemic attack (TIA), and cerebral infarction without residual deficits; Z79.82 Long term (current) use of aspirin; Z86.19 Personal history of other infectious and parasitic diseases; Z98.890 Other specified postprocedural states; Z23 Encounter for immunization
CPT/HCPCS: 93005; 99285; 36415 ×2; 82553; 82550; 83735; 84443; 85025; 80053; 84484 ×2; 80307; 80061; 83880; 93017; 71045; 78452; 90686; 93010; A9500; J2785; A9270 ×16; J1644 ×3; J3490 ×2; Q9969

== ENCOUNTER → 2020-06-16 | Outpatient (CLI) | payer MEDICARE | LOC: RAD 12:47 | PROVIDERS: ATTEND Otolaryngology | DX: C44.219 Basal cell carcinoma of skin of left ear and external auricular canal (principal) | CPT/HCPCS: 70481; 82565 ==

== ENCOUNTER 2020-08-04 08:29 | Emergency (ER) | payer MEDICARE ==
--- NOTE | 2020-08-04 08:57 | ER Document Report ---
ED General - General Chief Complaint: Weakness Stated Complaint: WEAKNESS Time Seen by Provider: 08/04/20 08:35 Primary Care Provider: [facility] [Provider Group] - Follow up as needed Mode of Arrival: Stretcher Information source: Patient, Emergency Med Personnel TRAVEL OUTSIDE OF THE [place] IN LAST 30 DAYS: No - HPI Notes: Patient is a 65-year-old male with a history of TX, TIA, and skin cancer who was brought in by EMS status post syncopal episode. Per EMS, patient syncopized in the bathroom and hit his forehead on the sink. Patient has minimal recollection of the event and cannot recall if he had any preceding symptoms. He denies chest pain, shortness of breath, dizziness, headache, abdominal pain, nausea, and vomiting. Patient reports low back pain but states this is not new and consistent with his chronic pain. He denies any new pain. He currently takes a baby aspirin daily but denies any other blood thinners. Patient is a poor historian as he answers questions vaguely or reports he is "unsure". - Related Data Allergies/Adverse Reactions: No Known Allergies Allergy (Verified 03/19/19 08:54) Past Medical History - General Information source: Patient - Social History Smoking Status: Unknown if Ever Smoked Family History: CAD, Other - Parkinson's disease. 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 Denies: Hx Migraine, Hx Seizures Endocrine Medical History: Denies: Hx Diabetes Mellitus Type 1, Hx Diabetes Mellitus Type 2, Hx Hyperthyroidism, Hx Hypothyroidism Renal/ Medical History: Reports: Hx Kidney Stones. Denies: Hx End Stage Renal Disease, Hx Peritoneal Dialysis Malignancy Medical History: Reports Hx Skin Cancer - Basal cell carcinoma, malignant melanoma GI Medical History: Reports: Hx Gastroesophageal Reflux Disease, Hx Hiatal Hernia. Denies: Hx Cirrhosis, Hx Crohn's Disease, Hx Hepatitis, Hx Ulcer, Hx Ulcerative Colitis Musculoskeletal Medical History: Reports Hx Arthritis, Denies Hx Gout Skin Medical History: Denies Hx Eczema, Denies Hx Psoriasis Psychiatric Medical History: Reports: Hx Depression Denies: Hx Schizophrenia Infectious Medical History: Denies: Hx Hepatitis Past Surgical History: Reports: Hx Abdominal Surgery - hernia repair, Hx Appendectomy, Hx Cardiac Catheterization - 2019, with cardiac ablation for arrhythmia, Hx Cardiac Surgery - Ablation, Hx Genitourinary Surgery - vasectomy, Hx Herniorrhaphy, Hx Tonsillectomy, Other - Vasectomy, skin cancer surgeries. Denies: Hx Bowel Surgery, Hx Cholecystectomy, Hx Kidney (Renal Surgery), Hx Neurologic Surgery, Hx Nose Surgery, Hx Open Heart Surgery, Hx Oral Surgery, Hx Orthopedic Surgery, Hx Pancreatic Surgery, Hx Pituitary Surgery, Hx Rectal Surgery, Hx Testicular Surgery, Hx Thyroid Surgery, Hx Urinary Tract Surgery, Hx Vascular Surgery - Immunizations Hx Diphtheria, Pertussis, Tetanus Vaccination: Yes Review of Systems - Review of Systems Constitutional: No symptoms reported EENT: No symptoms reported Cardiovascular: See HPI Respiratory: No symptoms reported Gastrointestinal: No symptoms reported Genitourinary: No symptoms reported Male Genitourinary: No symptoms reported Musculoskeletal: No symptoms reported Skin: No symptoms reported Hematologic/Lymphatic: No symptoms reported Neurological/Psychological: No symptoms reported Physical Exam - Vital signs Vitals: Temp Pulse Resp BP Pulse Ox 98.5 F 92 18 132/78 H 100 08/04/20 08:30 08/04/20 08:30 08/04/20 08:30 08/04/20 08:30 08/04/20 08:30 - Notes Notes: PHYSICAL EXAMINATION: VITALS: Vitals reviewed and within normal limits. GENERAL: Well-appearing, well-nourished and in no acute distress. HEAD: Atraumatic, normocephalic. EYES: Pupils equal, round, and reactive to light, extraocular movements intact, sclera anicteric, conjunctiva are normal. ENT: Nares patent. Moist mucous membranes. Oropharynx clear without exudates. NECK: Normal range of motion, supple without lymphadenopathy. LUNGS: Breath sounds clear to auscultation bilaterally and equal. No wheezes, rales, or rhonchi. HEART: Regular, rate, and rhythm without murmurs. ABDOMEN: Soft, nontender, normoactive bowel sounds. No guarding, no rebound. No masses appreciated. EXTREMITIES: Normal range of motion, no pitting or edema. No cyanosis. BACK: 5 out of 5 strength both distally and proximally bilateral lower extre mities. No midline tenderness over the vertebrae. 2+ patellar reflexes bilaterally. No clonus. Sensation grossly intact in the bilateral lower extremities. NEUROLOGICAL: No focal neurological deficits. CN II-XII grossly intact. Moves all extremities spontaneously and on command. 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 No pronator drift. Nose to finger testing intact. 5 out of 5 strength to both upper and lower extremities. Sensation grossly intact in all extremities. PSYCH: Normal mood, normal affect. SKIN: Warm, Dry, normal turgor, no rashes or lesions noted. Course - Re-evaluation Re-evalutation: Presentation of syncope of unclear etiology. Patient normotensive, alert, without focal neurologic deficits at time of arrival. Denies syncope was during exertion. Patient asymptomatic at time of arrival. EKG is without evidence of HCOM, right heart strain, ST changes to suggest ischemia, prolong QTc, delta wave, epsilon wave, or Brugada syndrome. Patient denies any family history of sudden cardiac , personal history of of structural heart disease. Patient denies any symptoms to suggest an acute PE, TX, TAD, SAH, seizure, or acute GI bleed as the etiology of their syncope today. On exam, no murmurs to suggest critical aortic stenosis as possible etiology. CBC and CMP are unremarkable and within normal limits. Troponin is negative. Chest XR negative. Head CT negative with no acute findings. C-spine CT shows chronic degenerative changes but no acute findings. Based on overall clinical history, exam findings, vitals, and patients appearance, I feel it is safe for patient to be discharged home at this time with close outpatient follow-up and strict return precautions. Patient is in agreement with this plan, has verbalized indications for return to ED, and questions have been answered. - Vital Signs Vital signs: Temp Pulse Resp BP Pulse Ox 98.5 F 72 16 131/82 H 100 08/04/20 09:28 08/04/20 10:02 08/04/20 13:22 08/04/20 13:22 08/04/20 13:22 - Laboratory Results Result Diagrams: 08/04/20 08:52 08/04/20 08:52 Laboratory Results Interpreted: 08/04/20 08/04/20 08/04/20 08:52 08:52 12:58 Lymph % (Auto) 12.5 L Sodium 133.2 L ALT 63 H Urine Ketones 100 H Critical Laboratory Results Reviewed: No Critical Results - Radiology Results Critical Radiology Results Reviewed: No Critical Results - EKG Interpretation by Me Additional EKG results interpreted by me: Sinus rhythm with a rate of 77. QTc 431. Left axis deviation. No T wave inversions or ST segment changes in consecutive leads. Discharge - Discharge Clinical Impression: Syncope Qualifiers: Syncope type: unspecified Qualified Code(s): R55 - Syncope and collapse Condition: Stable Disposition: HOME, SELF-CARE Additional Instructions: You were seen today after an episode of passing out. Your EKG here is normal. At this time, we do not feel that your episode of passing out was from any life- threatening cause. Please drink plenty of fluids over the next several days. Re turn to emergency department if you have any further episodes of syncope, headache, weakness, numbness, chest pain, or shortness of breath. Please follow up closely with your primary care physician. Forms: Return to Work Referrals: [facility] [Provider Group] - Follow up as needed
[2020-08-04 09:21] LABS: ABSOLUTE BASOPHILS # (AUTO) 0.1 10^3/uL (0.0-0.2); ABSOLUTE EOSINOPHILS # (AUTO) 0.1 10^3/uL (0.0-0.6); ABSOLUTE LYMPHOCYTES (AUTO) 0.8 10^3/uL (0.5-4.7); ABSOLUTE MONOCYTES (AUTO) 0.8 10^3/uL (0.1-1.4); ABSOLUTE NEUT (AUTO) 4.9 10^3/uL (1.7-8.2); EOSINOPHILS % (AUTO) 1.9 % (0-6); HEMATOCRIT 43.6 % (37.9-51.0); HEMOGLOBIN 14.7 g/dL (13.5-17.0); LYMPHOCYTES % (AUTO) 12.5 % (13-45); MEAN CORPUSCULAR HEMOGLOBIN 31.2 pg (27.0-33.4); MEAN CORPUSCULAR HGB CONC 33.8 g/dL (32.0-36.0); MEAN CORPUSCULAR VOLUME 92 fl (80-97); MONOCYTES % (AUTO) 12.1 % (3-13); PLATELET COUNT 219 10^3/uL (150-450); RED BLOOD COUNT 4.73 10^6/uL (4.35-5.55); RED CELL DISTRIBUTION WIDTH 13.1 % (11.5-14.0); SEGMENTED NEUTROPHILS % (AUTO) 72.5 % (42-78); TOTAL CELLS COUNTED % (AUTO) 100 %; WHITE BLOOD COUNT 6.8 10^3/uL (4.0-10.5)
--- NOTE | 2020-08-04 09:44 | RADIOLOGY REPORT (SQ) ---
EXAM DESCRIPTION: CT HEAD WITHOUT IMAGES COMPLETED DATE/TIME: 08/04/2020 9:26 am REASON FOR STUDY: syncope, head injury COMPARISON: CT brain 05/31/2017 MRI brain 05/31/2017 TECHNIQUE: Axial images acquired through the brain without intravenous contrast. Images reviewed wi th bone, brain and subdural windows. Additional sagittal and coronal reconstructions were generated. Images stored on PACS. All CT scanners at this facility use dose modulation, iterative reconstruction, and/or weight based d osing when appropriate to reduce radiation dose to as low as reasonably achievable (ALARA). [facility]: Dose Right [facility]: CareDose [facility]: Dose Right [facility]: Teradose 4D [facility]: [employer] RADIATION DOSE: CT Rad equipment meets quality standard of care and radiation dose reduction techniq ues were employed. CTDIvol: 53.2 mGy. DLP: 1097 mGy-cm. mGy. LIMITATIONS: Mild motion artifact FINDINGS: VENTRICLES: Normal size and contour. CEREBRUM: No CT evidence of acute large territory ischemic change, acute intracranial hemorrhage, mas s effect, or midline shift. Old infarcts in the right thalamus and right lateral basal ganglia, with minimal bifrontal and bipari etal chronic small vessel ischemic change, stable. CEREBELLUM: No masses. No hemorrhage. No alteration of density. No evidence for acute infarction. EXTRAAXIAL SPACES: No fluid collections. No masses. ORBITS AND GLOBE: No intra- or extraconal masses. Normal contour of globe without masses. CALVARIUM: No fracture. PARANASAL SINUSES: No fluid or mucosal thickening. SOFT TISSUES: No mass or hematoma. OTHER: No other significant finding. 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 COMMENT: Quality ID # [id number]: Final reports with documentation of one or more dose reduction techniques (e.g., Automated exposure control, adjustment of the mA and/or kV according to patient size, use of iterative reconstruction technique) TECHNICAL DOCUMENTATION: JOB ID: [id number] [employer]- All Rights Reserved Reading location - IP/workstation name: [email or web address]
--- NOTE | 2020-08-04 09:47 | RADIOLOGY REPORT (SQ) ---
EXAM DESCRIPTION: CT CERVICAL SPINE WITHOUT IMAGES COMPLETED DATE/TIME: 08/04/2020 9:26 am REASON FOR STUDY: syncope, head injury COMPARISON: CT cervical spine 02/20/2015 TECHNIQUE: Axial images acquired through the cervical spine without intravenous contrast. Images re viewed with lung, soft tissue and bone windows. Reconstructed coronal and sagittal MPR images review ed. Images stored on PACS. All CT scanners at this facility use dose modulation, iterative reconstruction, and/or weight based d osing when appropriate to reduce radiation dose to as low as reasonably achievable (ALARA). [facility]: Dose Right [facility]: CareDose [facility]: Dose Right [facility]: Teradose 4D [facility]: [employer] RADIATION DOSE: CT Rad equipment meets quality standard of care and radiation dose reduction techniq ues were employed. CTDIvol: 18.4 mGy. DLP: 338 mGy-cm. mGy. LIMITATIONS: None. FINDINGS: ALIGNMENT: Anatomic. MINERALIZATION: Normal. VERTEBRAL BODIES: No fractures or dislocation. DISCS: Multilevel disc space narrowing with anterior bulky bony bridging osteophytes from C2-3 throug h C5-6. FACETS, LATERAL MASSES, POSTERIOR ELEMENTS: Facet arthropathy. No fractures. No dislocation. No ac davon findings. HARDWARE: None in the spine. VISUALIZED RIBS: No fractures. LUNG APICES AND SOFT TISSUES: No significant or acute findings. OTHER: No other significant finding. IMPRESSION: CHRONIC DEGENERATIVE CHANGES. NO ACUTE FINDINGS. TECHNICAL DOCUMENTATION: JOB ID: [id number] Quality ID # [id number]: Final reports with documentation of one or more dose reduction techniques (e.g., Au tomated exposure control, adjustment of the mA and/or kV according to patient size, use of iterative reconstruction technique) 2010 [employer]- All Rights Reserved Reading location - IP/workstation name: [email or web address]
[2020-08-04 09:48] LABS: ALBUMIN 3.8 g/dL (3.5-5.0); ALKALINE PHOSPHATASE 81 U/L (38-126); ANION GAP 7 (5-19); ASPARTATE AMINO TRANSFERASE 58 U/L (17-59); BILIRUBIN,DIRECT 0.1 mg/dL (0.0-0.4); BILIRUBIN,TOTAL 0.6 mg/dL (0.2-1.3); BLOOD UREA NITROGEN 17 mg/dL (7-20); CALCIUM 9.1 mg/dL (8.4-10.2); CARBON DIOXIDE 27 mmol/L (22-30); CHLORIDE 99 mmol/L (98-107); GLUCOSE 87 mg/dL (75-110); POTASSIUM 4.4 mmol/L (3.6-5.0)
--- NOTE | 2020-08-04 09:51 | RADIOLOGY REPORT (SQ) ---
EXAM DESCRIPTION: CHEST SINGLE VIEW IMAGES COMPLETED DATE/TIME: 08/04/2020 9:40 am REASON FOR STUDY: syncope COMPARISON: AP chest 11/15/2019 EXAM PARAMETERS: NUMBER OF VIEWS: One view. TECHNIQUE: Single frontal radiographic view of the chest acquired. RADIATION DOSE: NA LIMITATIONS: None. FINDINGS: LUNGS AND PLEURA: No opacities, masses or pneumothorax. No pleural effusion. MEDIASTINUM AND HILAR STRUCTURES: No masses. Contour normal. HEART AND VASCULAR STRUCTURES: Heart normal in size. Normal vasculature. BONES: No acute findings. HARDWARE: None in the chest. OTHER: No other significant finding. IMPRESSION: NO ACUTE RADIOGRAPHIC FINDING IN THE CHEST. TECHNICAL DOCUMENTATION: JOB ID: [id number] 2010 [employer] All Rights Reserved Reading location - IP/workstation name: [email or web address]
[2020-08-04 13:37] VITALS: BP 131/82
[2020-08-04 13:47] LABS: APPEARANCE,URINE CLEAR; COLOR,URINE STRAW; GLUCOSE, URINE NEGATIVE (NEGATIVE)
[2020-08-04 13:48] LABS: BILIRUBIN,URINE NEGATIVE (NEGATIVE); KETONES,URINE 100 mg/dL (NEGATIVE); LEUKOCYTE ESTERASE,URINE NEGATIVE (NEGATIVE); NITRITE,URINE NEGATIVE (NEGATIVE); PROTEIN,URINE NEGATIVE (NEGATIVE); URINE SPECIFIC GRAVITY 1.008; UROBILINOGEN,URINE NEGATIVE mg/dL (<2.0)
[2020-08-04 13:49] LABS: ADD MANUAL MICROSCOPIC YES; RBC,URINE NONE SEEN /HPF; WBC,URINE NONE SEEN /HPF
[2020-08-04 13:50] LABS: BACTERIA,URINE TRACE /HPF
--- NOTE | 2020-08-04 18:56 | EKG REPORT ---
SEVERITY:- OTHERWISE NORMAL ECG - SINUS RHYTHM LEFT AXIS DEVIATION : Confirmed by: Bala Hudson 04-Aug-2020 18:55:10
== END 2020-08-04 13:35 | disposition home or self-care (01) ==
LOC: ER 08:29
DX: R55 Syncope and collapse (principal); R53.1 Weakness; W01.198A Fall on same level from slipping, tripping and stumbling with subsequent striking against other object, initial encounter; Y92.002 Bathroom of unspecified non-institutional (private) residence as the place of occurrence of the external cause; I25.2 Old myocardial infarction; Z86.73 Personal history of transient ischemic attack (TIA), and cerebral infarction without residual deficits; I10 Essential (primary) hypertension
CPT/HCPCS: 36415; 70450; 71045; 72125; 80053; 81001; 82962; 84484; 85025; 93005; 93010; 99285